=== PATIENT | male | born 1940 | race Caucasian/White ===

== ENCOUNTER 2017-03-26 19:42 | Inpatient (IN) | payer MEDICARE, BC ==
[2017-03-26] VITALS (8 sets, daily range): BP systolic 181–220; BP diastolic 76–103; PULSE 65–81; RESP 18–30; TEMP 98.7–103.1; O2SAT 94–98
[~2017-03-26] VITALS: Ht 185.4 cm; Wt 110.0 kg
[~2017-03-26 19:42] MED LIST: AMLO10 PO; ATOR40TA49 PO; CARD8TAB PO; CIPR500T4 PO; FINA1TAB2 PO; FOLI1 PO; FURO20 PO; GABA300C3 PO; HYDR100T2 PO; MAGN400C2 PO; METO100T PO; METR-1 PO; PERC5TAB12 PO; PRED5TAB PO; PRIM50TA PO; SYNT75TA PO; TAB-TAB PO; TACR1CAP PO; VITA20004 PO; VITATAB25 PO; [UNRECOGNIZED DRUG - CODE] PO
[2017-03-26] MEDS ORDERED: SODIUM CHLOR 0.9% 1000 ML INJ 1,000 ML IV ONE (20:03)
--- NOTE | 2017-03-26 20:08 | PD ---
HPI Chief Complaint: General Weakness Time Seen by Provider: 19:56 Travel History International Travel<30 days: No Contact w/Intl Traveler<30days: No Traveled to known affect area: No History of Present Illness HPI 76-year-old male with history of insulin dependent diabetes, hypertension, renal transplant in 2012, brought in by ambulance from home for evaluation of generalized weakness. Patient reports symptoms started last evening. He states his blood sugar was very low yesterday. Upon arrival to the emergency department he is notably warm and has a fever of 103F. He is denying chest pain or dyspnea. No cough. No abdominal pain. No nausea or vomiting. He did have a skin cancer removed from his left upper extremity that he states became infected and he is currently on an oral antibiotic, but he does not know the name of the medication. States that he is making urine. His baseline creatinine he reports is around 1.6-1.7. PFSH Past Medical History Hx Anticoagulant Therapy: Yes (81 MG ASA) Arthritis: Yes (lower back) Anxiety: No Depression: No Cancer: Yes (SKIN) Cardiovascular Problems: Yes (STENT X 1) Chemotherapy: No Diabetes: Yes Patient Takes Glucophage: No Diminished Hearing: No Endocrine: No Gastrointestinal Disorders: Yes (DUODENAL ULCER) Genitourinary: Yes (ENLARGED PROSTATE) Hepatitis: No Hiatal Hernia: No Hypertension: Yes Immune Disorder: No Implanted Vascular Access Dvce: No Kidney Stones: Yes (lithotripsy) Medical other: No Musculoskeletal: No Neurologic: No Psychiatric: No Reproductive: No Respiratory: No Immunizations Current: Yes Radiation Therapy: No Renal Failure: Yes Thyroid Disease: Yes Tetanus Vaccination: Unknown Influenza Vaccination: Yes Past Surgical History Abdominal Surgery: No AICD: No Arteriovenous Shunt: Yes (left arm avf) Body Medical Devices: PLATE IN NECK Cardiac Surgery: Yes (STENT) Ear Surgery: No Endocrine Surgery: No Eye Surgery: No Genitourinary Surgery: Yes (RIGHT KIDNEY 12-17-12,) Gynecologic Surgery: No Joint Replacement: No Neurologic Surgery: No Oral Surgery: No Pacemaker: No Thoracic Surgery: No Other Surgery: Yes (CATARACTS) Social History Alcohol Use: No Tobacco Use: No Substance Use: No Allergies-Medications (Allergen,Severity, Reaction): Coded Allergies: Amoxicillin (Unverified Allergy, Severe, HIVES, 03/26/17) Penicillin (Verified Allergy, Severe, Anaphylaxis, 03/26/17) PT STATES HE IS ALLERGIC TO AMOXICILLAN AND GETS HIVES FROM IT. Contrast Media (Verified Adverse Reaction, Severe, Urinary Freq (Inc/Dec) , 03/26/17) PT HAS RENAL TRANSPLANT Reported Meds & Prescriptions Reported Meds & Active Scripts Active Percocet 5-325 mg (Oxycodone/Acetaminophen) Oxycodone 5/325 Acetaminophen Tab 1 Tab PO Q6H PRN Flagyl (Metronidazole) 500 Mg Tab 1 Tab PO QID Cipro (Ciprofloxacin HCl) 500 Mg Tab 500 Mg PO BID Reported Finasteride (Finasteride (Alopecia)) 1 Mg Tab 1 Mg PO DAILY Folate 1 Mg Tab (Folic Acid) 1 Mg Tab 1 Mg PO MOWEFR Gabapentin 300 Mg Cap 300 Mg PO Q6HR Lipitor 40 Mg Tab (Atorvastatin Calcium) 40 Mg Tab 40 Mg PO DAILY Norvasc (Amlodipine Besylate) 10 Mg Tab 10 Mg PO DAILY Primidone 50 Mg Tab 50 Mg PO BID Synthroid 75 mcg (Levothyroxine Sodium) 75 Mcg Tab 75 Mcg PO DAILY Tacrolimus 1 mg (Tacrolimus) 1 Mg Cap 4 Mg PO BID Tums [place]hers (Calcium Carbonate (Antacid)) 500 Mg Chw 500 Mg PO DAILY Vitamin B-12 Tr (Cyanocobalamin) 2,000 Tr Tab 1,000 Tab PO MOWEFR Vitamin D-1000 (Cholecalciferol) 1,000 Unit Tab 2,000 Unit PO DAILY Lasix 20 Mg Tab (Furosemide) 20 Mg Tab 20 Mg PO DAILY Cardura XL 8 mg (Doxazosin Mesylate (Bph)) 8 Mg Tab 8 Mg PO HS Metoprolol Tartrate 100 mg (Metoprolol Tartrate) 100 Mg Tab 100 Mg PO BID Magnesium (Magnesium Oxide (Mg Supplement) 400 Mg Cap 800 Mg PO BID Prednisone 5 Mg Tab 5 Mg PO DAILY Hydralazine HCl 100 Mg Tab 100 Mg PO TID Multivitamin (Multivitamins) 1 Tab Tab 1 Tab PO DAILY Review of Systems Except as stated in HPI: all other systems reviewed are Neg Physical Exam Narrative GENERAL: Well-developed, well-nourished, awake, alert, diaphoretic, rigors SKIN: Pale, diaphoretic, warm to touch. Left lateral arm with vertical surgical incision with surrounding erythema and warmth and mild purulent drainage, no fluctuance or induration. HEAD: Atraumatic. Normocephalic. EYES: Pupils equal and round. No scleral icterus. No injection or drainage. ENT: Mucous membranes pink and moist. NECK: Trachea midline. No JVD. No nuchal rigidity. CARDIOVASCULAR: No murmur appreciated. Bilateral distal radial pulses are brisk and equal. RESPIRATORY: No accessory muscle use. Clear to auscultation. Breath sounds equal bilaterally. GASTROINTESTINAL: Abdomen soft, non-tender, nondistended. MUSCULOSKELETAL: No obvious deformities. No clubbing. No cyanosis. No edema. NEUROLOGICAL: Awake and alert. No obvious cranial nerve deficits. Motor grossly within normal limits. Normal speech. PSYCHIATRIC: Appropriate mood and affect; insight and judgment normal. Data Data Last Documented VS Vital Signs Date Time Temp Pulse Resp B/P Pulse Ox O2 Delivery O2 Flow Rate FiO2 03/26/17 21:05 100.1 74 21 199/103 98 Nasal Cannula 2 Orders Electrocardiogram (03/26/17 20:03) Complete Blood Count With Diff (03/26/17 20:03) Comprehensive Metabolic Panel (03/26/17 20:03) Prothrombin Time / Inr (Pt) (03/26/17 20:03) Act Partial Throm Time (Ptt) (03/26/17 20:03) Lactic Acid Sepsis Protocol (03/26/17 20:03) Urinalysis - C+S If Indicated (03/26/17 20:03) Influenzae A/B Antigen (03/26/17 20:03) Blood Culture (03/26/17 20:03) Wound Culture And Gram Stain (03/26/17 20:03) Chest, Single Ap (03/26/17 20:03) Blood Glucose (03/26/17 20:03) Ecg Monitoring (03/26/17 20:03) Iv Access Insert/Monitor (03/26/17 20:03) Oximetry (03/26/17 20:03) Oxygen Administration (03/26/17 20:03) Acetaminophen Supp (Tylenol Supp) (03/26/17 20:15) Sodium Chlor 0.9% 1000 Ml Inj (Ns 1000 M (03/26/17 20:03) Clindamycin Inj (Cleocin Inj) (03/26/17 20:15) Ceftriaxone Inj (Rocephin Inj) (03/26/17 21:30) Admit To Inpatient (03/26/17 ) Vital Signs (Adult) Q4H (03/26/17 21:30) Activity Oob With Assistance (03/26/17 21:30) Delicatessen Department Manager / Telemetry .CONTINUOUS (03/26/17 21:30) Intake + Output DAMARIS.QSHIFT (03/26/17 21:30) Diet Heart Healthy (03/27/17 Breakfast) Diet Renal (03/27/17 Breakfast) Sodium Chlor 0.9% 1000 Ml Inj (Ns 1000 M (03/26/17 21:30) Sodium Chloride 0.9% Flush (Ns Flush) (03/26/17 21:30) Sodium Chloride 0.9% Flush (Ns Flush) (03/27/17 09:00) Ondansetron Inj (Zofran Inj) (03/26/17 21:30) Basic Metabolic Panel (Bmp) (03/27/17 06:00) Complete Blood Count With Diff (03/27/17 06:00) Pt Request For Service (03/26/17 21:30) Naloxone Inj (Narcan Inj) (03/26/17 21:30) Inpatient Certification (03/26/17 ) Urinary Catheter Insert/Apply (03/26/17 21:33) Labs Laboratory Tests Test 03/26/17 20:10 White Blood Count 15.6 TH/MM3 Red Blood Count 4.34 MIL/MM3 Hemoglobin 13.3 GM/DL Hematocrit 39.3 % Mean Corpuscular Volume 90.5 FL Mean Corpuscular Hemoglobin 30.5 PG Mean Corpuscular Hemoglobin 33.7 % Concent Red Cell Distribution Width 13.7 % Platelet Count 154 TH/MM3 Mean Platelet Volume 9.1 FL Neutrophils (%) (Auto) 85.5 % Lymphocytes (%) (Auto) 6.3 % Monocytes (%) (Auto) 7.7 % Eosinophils (%) (Auto) 0.0 % Basophils (%) (Auto) 0.5 % Neutrophils # (Auto) 13.4 TH/MM3 Lymphocytes # (Auto) 1.0 TH/MM3 Monocytes # (Auto) 1.2 TH/MM3 Eosinophils # (Auto) 0.0 TH/MM3 Basophils # (Auto) 0.1 TH/MM3 CBC Comment DIFF FINAL Differential Comment Prothrombin Time 12.1 SEC Prothromb Time International 1.1 RATIO Ratio Activated Partial 27.3 SEC Thromboplast Time Sodium Level 135 MEQ/L Potassium Level 4.9 MEQ/L Chloride Level 100 MEQ/L Carbon Dioxide Level 27.7 MEQ/L Anion Gap 7 MEQ/L Blood Urea Nitrogen 35 MG/DL Creatinine 2.55 MG/DL Estimat Glomerular Filtration 25 ML/MIN Rate Random Glucose 289 MG/DL Lactic Acid Level 2.1 mmol/L Calcium Level 9.1 MG/DL Total Bilirubin 0.6 MG/DL Aspartate Amino Transf 20 U/L (AST/SGOT) Alanine Aminotransferase 31 U/L (ALT/SGPT) Alkaline Phosphatase 64 U/L Total Protein 7.4 GM/DL Albumin 3.8 GM/DL [facility] Medical Decision Making Medical Screen Exam Complete: Yes Emergency Medical Condition: Yes Medical Record Reviewed: Yes Differential Diagnosis Sepsis, cellulitis, bacteremia, influenza, pneumonia, UTI Narrative Course Initial vital signs show heart rate 76, blood pressure 220/85, pulse ox 94% on room air, oral temp of 103.1F. CBC is remarkable for WBC 15.6 with 85.5% neutrophils. CMP is remarkable for BUN 35, creatinine 2.55, GFR 25. Patient reports his baseline creatinine is around 1.6 1.7. Random glucose is 289. Lactic acid is 2.1. Chest x-ray: No acute disease. Patient was given 2 L of normal saline IV. He was also given a dose of clinic my son, for cellulitis of his left upper extremity as well as a dose of Rocephin for potential UTI. Patient was unable to provide a urine sample, therefore for catheter was placed to measure accurate output as well as to obtain a sample. Patient and the patient's family were made aware of all findings and plan for admission. Diagnosis Primary Impression: Sepsis Qualified Code: A41.9 - Sepsis, due to unspecified organism Additional Impressions: Cellulitis Qualified Code: L03.114 - Cellulitis of left upper extremity Acute on chronic renal insufficiency Admitting Information Admitting Physician Requests: Admit Bryant Freitas MD March 26, 2017 20:08
[2017-03-26] MEDS ORDERED: ACETAMINOPHEN 650 MG SUPP RECTAL ONE (20:15)
[2017-03-26] MEDS ORDERED: CLINDAMYCIN INJ 600 MG in SODIUM CHLORIDE 0.9% INJ 100 ML IV ONE (20:15)
[2017-03-26 20:30] LABS: AUTOMATED NEUTROPHIL # 13.4 TH/MM3 (1.8-7.7); BASOPHIL # 0.1 TH/MM3 (0-0.2); BASOPHIL % 0.5 % (0.0-2.0); HEMATOCRIT 39.3 % (39.0-51.0); HEMO FLAGS DIFF FINAL; LYMPH % 6.3 % (9.0-44.0); MEAN CELL VOLUME 90.5 FL (80.0-100.0); MEAN CORPUSCULAR HEMOGLOBIN 30.5 PG (27.0-34.0); MEAN CORPUSCULAR HGB CONC 33.7 % (32.0-36.0); MONO % 7.7 % (0.0-8.0); NEUT % 85.5 % (16.0-70.0); PLATELET COUNT 154 TH/MM3 (150-450); RED BLOOD COUNT 4.34 MIL/MM3 (4.50-5.90); RED CELL DISTRIBUTION WIDTH 13.7 % (11.6-17.2); WHITE BLOOD COUNT 15.6 TH/MM3 (4.0-11.0)
--- NOTE | 2017-03-26 20:37 | RADRPT ---
EXAM DATE/TIME: 03/26/2017 20:22 [place] COMPARISON: No previous studies available for comparison. INDICATIONS : Fever, weakness. MEDICAL HISTORY : Myocardial infarction. Hypertension. SURGICAL HISTORY : Umbilical hernia repair. Cardiac stents. ENCOUNTER: Initial ACUITY: 3 days PAIN SCORE: 0/10 LOCATION: chest FINDINGS: A single view of the chest demonstrates the lungs to be symmetrically aerated without evidence of mas s, infiltrate or effusion. The cardiomediastinal contours are unremarkable. Osseous structures are intact. The patient's head is flexed obscuring the right lung apex. There are degenerative changes in the thoracic spine. CONCLUSION: No acute disease. Raffi Boo MD on March 26, 2017 at 20:30 Board Certified Radiologist. This report was verified electronically.
[2017-03-26 20:46] LABS: APTT (PATIENT) 27.3 SEC (24.3-30.1); INTERNATIONAL NORMALIZED RATIO 1.1 RATIO; PROTHROMBIN TIME - PATIENT 12.1 SEC (9.8-11.6)
[2017-03-26 21:04] LABS: ANION GAP 7 MEQ/L (5-15); BICARBONATE 27.7 MEQ/L (21.0-32.0); BLOOD UREA NITROGEN 35 MG/DL (7-18); CHLORIDE 100 MEQ/L (98-107); GLOMERULAR FILTRATION RATE 25 ML/MIN (>89); POTASSIUM 4.9 MEQ/L (3.5-5.1); SODIUM (NA) 135 MEQ/L (136-145)
[2017-03-26 21:07] LABS: ALKALINE PHOSPHATASE 64 U/L (45-117); ALT (GPT) 31 U/L (12-78); AST (GOT) 20 U/L (15-37); TOTAL BILIRUBIN ADULT 0.6 MG/DL (0.2-1.0)
[2017-03-26] MEDS ORDERED: NALOXONE HCL 0.4 MG/ML AMP IV PRN (21:30)
[2017-03-26] MEDS ORDERED: SODIUM CHLORIDE 0.9% FLUSH 10 ML FLUSH IV FLUSH PRN (21:30)
[2017-03-26] MEDS ORDERED: cefTRIAXone INJ 1,000 MG in SODIUM CHLORIDE 0.9% INJ 100 ML IV ONE (21:30)
[2017-03-26 22:10] LABS: BACTERIA, URINE RARE /hpf; BLOOD, URINE NEG (NEG); GLUCOSE,URINE 300 mg/dL (NEG); HYALINE CAST, URINE 2 /lpf (RARE); KETONE, URINE NEG (NEG); NITRITE,URINE NEG (NEG); SQUAMOUS EPITHELIAL CELL URINE <1 /hpf (0-5); URINE COLOR YELLOW (YELLW/STRAW)
[2017-03-26 22:11] LABS: COMMENT (UR) CATH-CULTURE IND; CULTURE IF INDICATED CATH CULTURE IND
[2017-03-26 22:26] LABS: LACTIC ACID GHOST NOT REPORTABLE
[2017-03-26] MEDS: SODIUM CHLOR 0.9% 1000 ML INJ 1,000 ML IV SCH (22:43)
[2017-03-26] MEDS ORDERED: hydrALAZINE HCL 20 MG/ML VIAL IV PUSH PRN (23:30)
[2017-03-26] MEDS ORDERED: PRIM50TA5 PO (23:34)
[2017-03-26] MEDS ORDERED: METO100T PO (23:34)
[2017-03-26] MEDS ORDERED: LEVO.075 PO (23:34)
[2017-03-26] MEDS ORDERED: MAGN400T2 PO (23:34)
[2017-03-26] MEDS ORDERED: PRED5TAB PO (23:34)
[2017-03-26] MEDS ORDERED: MULTTAB67 PO (23:34)
[2017-03-26] MEDS ORDERED: TACR1CAP PO (23:34)
[2017-03-26] MEDS ORDERED: CARD8TAB2 PO (23:40)
[2017-03-26] MEDS ORDERED: FINA5TAB2 PO (23:40)
[2017-03-26] MEDS ORDERED: FURO20TA PO (23:40)
[2017-03-26] MEDS ORDERED: FOLI1TAB4 PO (23:40)
[2017-03-26] MEDS ORDERED: CALC500C16 CHEW (23:40)
[2017-03-26] MEDS ORDERED: HYDR-3801 PO (23:40)
[2017-03-26] MEDS ORDERED: GABA300C5 PO (23:40)
[2017-03-26] MEDS ORDERED: LIPI40TA PO (23:40)
[2017-03-26] MEDS ORDERED: CHOL1CAP13 PO (23:40)
[2017-03-26] MEDS ORDERED: AMLO10 PO (23:40)
[2017-03-26] MEDS ORDERED: VITA10002 PO (23:40)
[2017-03-27] VITALS (7 sets, daily range): BP systolic 134–190; BP diastolic 68–83; PULSE 67–80; RESP 15–20; TEMP 98.5–99.5; O2SAT 92–97
[2017-03-27] MEDS ORDERED: GLUCAGON 1 MG/ML VIAL OTHER PRN (01:30)
[2017-03-27] MEDS ORDERED: DEXTROSE 50% IN WATER 50 ML VIAL(D50) IV PUSH PRN (01:30)
[2017-03-27] MEDS ORDERED: ACETAMINOPHEN 325 MG TAB PO ONE (02:00)
--- NOTE | 2017-03-27 03:13 | HHI.HP ---
HPI Service [facility] Primary Care Physician Vera Saenz MD Admission Diagnosis sepsis, acute on chronic renal sufficiency, cellulitis Diagnoses: Chief Complaint: fever and chills Travel History International Travel<30 Days: No Contact w/Intl Traveler <30 Da: No Traveled to Known Affected Are: No History of Present Illness Mr. Gaming is a 76 y/o male with a history of end-stage renal disease status post renal transplant in 2012, diabetes mellitus, hypertension, gastroesophageal reflux disease, coronary artery disease, and hyperlipidemia who presented to the emergency room on 03/26/2017 for evaluation of generalized weakness. He was noted to have a temperature of 103 in the ER. The patient is seen in his hospital room. He reports fever and chills for 2 days duration with max temp over 103. He denies any recent cough, shortness of breath, chest pain, diarrhea, nausea, vomiting, or dysuria. He reports some vague abdominal pain that occurs only when he has chills. Sutures removed for skin cancer from left arm procedure done a couple of weeks ago - suture site examined with minimal redness and no exudate and no swelling. Two weeks ago, he was on antibiotics post-procedure and antibiotics were restarted a few days ago after sutures were removed. Review of Systems Except as stated in HPI: all other systems reviewed are Neg Past Family Social History Past Medical History End-stage renal disease status post renal transplant in 2012 Diabetes mellitus Hypertension Basal cell skin cancers Gastroesophageal reflux disease Coronary artery disease status post cardiac stent 1 Hyperlipidemia Bilateral ankle fractures in November 2016 - placed in immobilizers Melanoma 2005 . Past Surgical History Cardiac catheterization with circumflex stenting 02/25/2011 Dr. Hightower Right Kidney Transplant in 2012 Left AV fistula placement Neck surgery with plate placement Cataract surgery Melanoma removed 2005 Reported Medications Reported Meds & Active Scripts Active Reported Norvasc (Amlodipine Besylate) 10 Mg Tab 10 Mg PO DAILY Lipitor (Atorvastatin Calcium) 40 Mg Tab 40 Mg PO HS Calcium Carbonate (Antacid) 500 Mg Chew 500 Mg CHEW PRN Vitamin D3 Maximum Strength (Cholecalciferol) 5,000 Unit Cap 2,000 Units PO DAILY Vitamin B-12 (Cyanocobalamin) 1,000 Mcg Tab 1,000 Mcg PO DAILY Cardura (Doxazosin Mesylate) 8 Mg Tab 8 Mg PO HS Finasteride 5 Mg Tab 1 Mg PO DAILY Do not crush. Folate (Folic Acid) 1 Mg Tab 1 Mg PO DAILY Furosemide 20 Mg Tab 20 Mg PO DAILY Gabapentin 300 Mg Cap 300 Mg PO TID Hydralazine (Hydralazine HCl) 100 Mg Tab 100 Mg PO TID Take with meals Magnesium Oxide 400 Mg Tab 800 Mg PO BID Metoprolol Tartrate 100 Mg Tab 100 Mg PO BID Multiple Vitamin 1 Tab 1 Tab PO DAILY Prednisone 5 Mg Tab 5 Mg PO DAILY Primidone 50 Mg Tab 50 Mg PO BID Synthroid (Levothyroxine Sodium) 75 Mcg Tab 75 Mcg PO DAILY Tacrolimus 1 Mg Cap 4 Mg PO Q12H Allergies: Coded Allergies: Amoxicillin (Unverified Allergy, Severe, HIVES, 03/26/17) Penicillin (Verified Allergy, Severe, Anaphylaxis, 03/26/17) PT STATES HE IS ALLERGIC TO AMOXICILLAN AND GETS HIVES FROM IT. Contrast Media (Verified Adverse Reaction, Severe, Urinary Freq (Inc/Dec) , 03/26/17) PT HAS RENAL TRANSPLANT Active Ordered Medications Current Medications Acetaminophen 650 mg 650 mg ONCE ONCE RECTAL Last administered on 03/26/17 20: 37; Start 03/26/17 at 20:15; Stop 03/26/17 at 20:16; Status DC Sodium Chloride 1,000 ml @ 1,000 mls/hr Q1H ONCE IV Last administered on 20:37; Start 03/26/17 at 20:03; Stop 03/26/17 at 21:02; Status DC Clindamycin Phosphate 600 mg/ Sodium Chloride 104 ml @ 208 mls/hr ONCE ONCE IV Last administered on 03/26/17 20:51; Start 03/26/17 at 20:15; Stop 03/26/17 at 20:44; Status DC Ceftriaxone Sodium 1000 mg/ Sodium Chloride 100 ml @ 200 mls/hr ONCE ONCE IV Last administered on 03/26/17 22:44; Start 03/26/17 at 21:30; Stop 03/26/17 at 21: 59; Status DC Sodium Chloride (NS 1000 ml Inj) 1,000 ml @ 100 mls/hr Q10H IV Last administered on 03/26/17 22:43; Start 03/26/17 at 21:30 Sodium Chloride (NS Flush) 2 ml UNSCH PRN IV FLUSH FLUSH AFTER USING IV ACCESS ; Start 03/26/17 at 21:30 Sodium Chloride (NS Flush) 2 ml BID IV FLUSH ; Start 03/27/17 at 09:00 Ondansetron HCl (Zofran Inj) 4 mg Q6H PRN IVP NAUSEA OR VOMITING; Start at 21:30 Naloxone HCl 0.4 mg 0.4 mg UNSCH PRN IV SEE LABEL COMMENTS; Start 03/26/17 at 21 :30 Clindamycin Phosphate/Sodium Chloride (Cleocin Inj/NS Inj) 104 ml @ 208 mls/hr Q6H IV ; Start 03/27/17 at 03:00 Lactobacillus Acidophilus (Lactinex) 1 tab TID PO ; Start 03/27/17 at 09:00 Hydralazine HCl (Apresoline Inj) 10 mg Q30M PRN IV PUSH bp>180/90 Last administered on 03/26/17t 23:44; Start 03/26/17 at 23:30 Dextrose (D50w (Vial) Inj) 25 ml UNSCH PRN IV PUSH HYPOGLYCEMIA-SEE COMMENTS; Start 03/27/17 at 01:30 Glucagon (Glucagon Inj) 1 mg UNSCH PRN OTHER HYPOGLYCEMIA-SEE COMMENTS; Start 03/27/17 at 01:30 Insulin Aspart (NovoLOG SUPPLEMENTAL SCALE) 1 ACHS SLIDING SCALE SQ ; Start 03/27/17 at 07:00 Acetaminophen (Tylenol) 650 mg ONCE ONCE PO ; Start 03/27/17 at 02:00; Stop 03/27 at 02:01; Status DC Family History Father at age 76 from lung cancer Mother at age 76 from ovarian cancer Sister with diabetes Son with end-stage renal disease and diabetes Another son with diabetes Social History Tobacco: Smoked half pack per day and quit in 1965 Alcohol: denies Illicit Drugs: denies Physical Exam Vital Signs Vital Signs Date Time Temp Pulse Resp B/P Pulse Ox O2 Delivery O2 Flow Rate FiO2 03/27/17 01:00 71 03/27/17 00:30 99.0 71 18 134/68 97 03/27/17 00:30 71 03/26/17 23:51 181/76 03/26/17 23:47 65 18 186/79 97 Nasal Cannula 2 03/26/17 22:45 67 18 198/79 97 Nasal Cannula 2 03/26/17 22:08 98.7 68 30 209/84 95 03/26/17 21:05 100.1 74 21 199/103 98 Nasal Cannula 2 03/26/17 20:35 98 Nasal Cannula 2 03/26/17 20:35 98 Nasal Cannula 2 03/26/17 20:35 81 26 211/102 95 Nasal Cannula 2 03/26/17 19:57 79 20 220/85 97 Nasal Cannula 2 03/26/17 19:52 103.1 76 20 94 Physical Exam GENERAL: This is a morbidly obese older male patient, in no apparent distress. SKIN: Left arm skin cancer removal incision site with mild erythema and no exudate and no swelling. Cool and dry. HEAD: Atraumatic. Normocephalic. EYES: No scleral icterus. No injection or drainage. ENT: Nose without bleeding, purulent drainage. NECK: Trachea midline. No JVD or lymphadenopathy. CARDIOVASCULAR: Regular rate and rhythm without murmurs, gallops, or rubs. RESPIRATORY: Clear to auscultation. Breath sounds equal bilaterally. No wheezes , rales, or rhonchi. GASTROINTESTINAL: Abdomen soft, non-tender, nondistended. No guarding. MUSCULOSKELETAL: Extremities without clubbing, cyanosis, or edema. No calf tenderness. NEUROLOGICAL: Awake and alert. Motor and sensory grossly within normal limits. Normal speech. . Laboratory Laboratory Tests Test 03/26/17 03/26/17 03/26/17 20:10 21:35 23:00 White Blood Count 15.6 Red Blood Count 4.34 Hemoglobin 13.3 Hematocrit 39.3 Mean Corpuscular Volume 90.5 Mean Corpuscular Hemoglobin 30.5 Mean Corpuscular Hemoglobin 33.7 Concent Red Cell Distribution Width 13.7 Platelet Count 154 Mean Platelet Volume 9.1 Neutrophils (%) (Auto) 85.5 Lymphocytes (%) (Auto) 6.3 Monocytes (%) (Auto) 7.7 Eosinophils (%) (Auto) 0.0 Basophils (%) (Auto) 0.5 Neutrophils # (Auto) 13.4 Lymphocytes # (Auto) 1.0 Monocytes # (Auto) 1.2 Eosinophils # (Auto) 0.0 Basophils # (Auto) 0.1 CBC Comment DIFF FINAL Differential Comment Prothrombin Time 12.1 Prothromb Time International 1.1 Ratio Activated Partial 27.3 Thromboplast Time Sodium Level 135 Potassium Level 4.9 Chloride Level 100 Carbon Dioxide Level 27.7 Anion Gap 7 Blood Urea Nitrogen 35 Creatinine 2.55 Estimat Glomerular Filtration 25 Rate Random Glucose 289 Lactic Acid Level 2.1 1.0 Calcium Level 9.1 Total Bilirubin 0.6 Aspartate Amino Transf 20 (AST/SGOT) Alanine Aminotransferase 31 (ALT/SGPT) Alkaline Phosphatase 64 Total Protein 7.4 Albumin 3.8 Urine Color YELLOW Urine Turbidity CLEAR Urine pH 6.0 Urine Specific [place] 1.017 Urine Protein 30 Urine Glucose (UA) 300 Urine Ketones NEG Urine Occult Blood NEG Urine Nitrite NEG Urine Bilirubin NEG Urine Urobilinogen LESS THAN 2.0 Urine Leukocyte Esterase NEG Urine RBC 1 Urine WBC 1 Urine Squamous Epithelial <1 Cells Urine Bacteria RARE Urine Hyaline Casts 2 Microscopic Urinalysis Comment CATH-CULTURE IND Date/Time Procedure Status Source Growth 03/26/17 21:35 Urine Culture Received Urine Catheterized Urine Pending 03/26/17 20:30 Influenza Types A,B Antigen ([place]) - Final Complete Nasal Washing NEGATIVE FOR FLU A AND B ANTIGEN.... 03/26/17 20:30 Gram Stain Received Wound Arm Pending 03/26/17 20:30 Wound Culture Received Wound Arm Pending 03/26/17 20:10 Aerobic Blood Culture Received Blood Peripheral Pending 03/26/17 20:10 Anaerobic Blood Culture Received Blood Peripheral Pending Result Diagram: 03/26/17200903/26/172009 Imaging Last Impressions Chest X-Ray 03/26/172002 Signed Impressions: Service Date/Time: Sunday, March 26, 2017 20:22 - CONCLUSION: No acute disease. Raffi Boo MD . Assessment and Plan Assessment and Plan Mr. Gaming is a 76 y/o male with a history of end-stage renal disease status post renal transplant in 2012 is admitted with sepsis secondary to left arm cellulitis s/p basal cell CA removal. Sepsis secondary to cellulitis of left upper extremity- Leukocytosis with neutrophilia, fever, lactic acidosis - WBC 15.6 with neutrophilia - Oral temperature 103.1 on admission - Lactic acid 2.1 repeat 1.0 - Clindamycin 600 mg IV every 6 hours - Acidophilus 1 tab 3 times a day to maintain normal gastrointestinal behtany - flu A and B negative - CXR negative - await results of blood cultures, wound cultures, and urine cultures Acute on chronic renal failure in a renal transplant patient - BUN 35, creatinine 2.55, estimated GFR 25 - Baseline: creatinine is 1.6 1.7, eGFR mid-30s - Monitor intake and output every shift - IV fluid hydration with normal saline at 100 cc per hour - Renal diet - Avoid nephrotoxins - consult circuit breaker supervisor - Dr. Yoo Hyperglycemia secondary to diabetes mellitus and infection - Accu-Cheks before meals and at bedtime with low-dose NovoLog sliding scale coverage - Hypoglycemia treatment protocol ordered - Monitor trends and blood glucose readings and adjust treatment as needed Hypertensive urgency - Hydralazine 10 mg IV push every 30 minutes as needed for blood pressure greater than 180/90 - Restart home antihypertensive medications - Monitor trends in blood pressure readings and adjust treatment as needed DVT prophylaxis - Heparin 5000 units subq q8h Written by Yasmeen Casarez, acting as scribe for Dr. Le on 03/27/17 at 03:07. .This note was transcribed by scribe [Yasmeen Casarez]. I, Dr. Kaylie Le personally performed the history, physical exam, and medical decision making; and confirmed the accuracy of the information in the transcribed note. Authenticated by Dr. Kaylie Le on 03/27/17 at 03:07. Discussed Condition With ER physician and patient . Physician Certification 2 Midnight Certification Type: Admission for Inpatient Services Order for Inpatient Services The services are ordered in accordance with Medicare regulations or non- Medicare payer requirements, as applicable. In the case of services not specified as inpatient-only, they are appropriately provided as inpatient services in accordance with the 2-midnight benchmark. Estimated LOS (days): 3 days is the estimated time the patient will need to remain in the hospital, assuming treatment plan goals are met and no additional complications. Post-Hospital Plan: Not yet determined Yasmeen Casarez March 27, 2017 03:13 Kaylie Le MD March 27, 2017 08:35
[2017-03-27] MEDS: CLINDAMYCIN INJ 600 MG in SODIUM CHLORIDE 0.9% INJ 100 ML IV SCH ×4 (03:24→21:34)
[2017-03-27 06:17] LABS: AUTOMATED NEUTROPHIL # 13.8 TH/MM3 (1.8-7.7); BASOPHIL # 0.1 TH/MM3 (0-0.2); BASOPHIL % 0.4 % (0.0-2.0); HEMATOCRIT 35.7 % (39.0-51.0); HEMO FLAGS DIFF FINAL; LYMPH % 5.2 % (9.0-44.0); LYMPHOCYTE # 0.8 TH/MM3 (1.0-4.8); MEAN CELL VOLUME 90.3 FL (80.0-100.0); MEAN CORPUSCULAR HEMOGLOBIN 30.6 PG (27.0-34.0); MEAN CORPUSCULAR HGB CONC 33.9 % (32.0-36.0); MONO % 6.1 % (0.0-8.0); NEUT % 88.3 % (16.0-70.0); PLATELET COUNT 136 TH/MM3 (150-450); RED BLOOD COUNT 3.95 MIL/MM3 (4.50-5.90); RED CELL DISTRIBUTION WIDTH 13.6 % (11.6-17.2); WHITE BLOOD COUNT 15.6 TH/MM3 (4.0-11.0)
[2017-03-27 06:45] LABS: BICARBONATE 23.5 MEQ/L (21.0-32.0); POTASSIUM 4.7 MEQ/L (3.5-5.1)
[2017-03-27] MEDS: SODIUM CHLOR 0.9% 1000 ML INJ 1,000 ML IV SCH ×2 (07:30→15:20)
[2017-03-27] MEDS: HEPARIN SODIUM - SQ 10,000 UNITS/ML VIAL SQ SCH ×3 (07:57→21:35)
[2017-03-27] MEDS: LEVOTHYROXINE SODIUM 75 MCG TAB PO SCH (07:57)
[2017-03-27] MEDS: INSULIN ASPART SUPPLEMENTAL SCALE SQ SCH ×4 (07:58→21:35)
[2017-03-27] MEDS ORDERED: FINASTERIDE 5 MG TAB PO SCH (09:00)
[2017-03-27] MEDS: SODIUM CHLORIDE 0.9% FLUSH 10 ML FLUSH IV FLUSH SCH ×2 (09:00→21:00)
[2017-03-27] MEDS: CHOLECALCIFEROL (VIT D3) 1000 UNIT TAB PO SCH (09:00)
[2017-03-27] MEDS: LACTOBACILLUS ACIDOPHILUS TAB PO SCH ×3 (09:32→17:21)
[2017-03-27] MEDS: GABAPENTIN 300 MG CAP PO SCH ×3 (09:32→17:21)
[2017-03-27] MEDS: hydrALAZINE HCL 100 MG TAB PO SCH ×3 (09:32→17:21)
[2017-03-27] MEDS: CYANOCOBALAMIN 1,000 MCG TAB PO SCH (09:32)
[2017-03-27] MEDS: METOPROLOL TARTRATE 100 MG TAB PO SCH ×2 (09:35→21:33)
[2017-03-27] MEDS: predniSONE 5 MG TAB PO SCH (09:35)
[2017-03-27] MEDS: FOLIC ACID 1 MG TAB PO SCH (09:35)
[2017-03-27] MEDS: FUROSEMIDE 20 MG TAB PO SCH (09:35)
[2017-03-27] MEDS: THIAMINE HCL 100 MG TAB PO SCH (09:35)
--- NOTE | 2017-03-27 10:57 | PD.CONS ---
HPI Service Nephrology Consult Requested By Dr. Le Reason for Consult Kidney transplant Primary Care Physician Vera Saenz MD History of Present Illness Patient is 76-year-old status post kidney transplant at [facility] in 2012 complicated by obstructive uropathy requiring stents he finally has improved to his renal function however he has multiple skin cancer is skin cancer was excised from left arm about 12 days ago and he developed fevers and treating the patient is some redness around the incision the sutures were removed recently he came in with feeling tired loss of appetite and fevers. His creatinine fluctuated between 1.6-1.9 just today it was 2.5 and today is 2.1 Past Family Social History Allergies: Coded Allergies: Amoxicillin (Unverified Allergy, Severe, HIVES, 03/26/17) Penicillin (Verified Allergy, Severe, Anaphylaxis, 03/26/17) PT STATES HE IS ALLERGIC TO AMOXICILLAN AND GETS HIVES FROM IT. Contrast Media (Verified Adverse Reaction, Severe, Urinary Freq (Inc/Dec) , 03/26/17) PT HAS RENAL TRANSPLANT Past Medical History End-stage renal disease status post renal transplant in 2012 Diabetes mellitus Hypertension Basal cell skin cancers Gastroesophageal reflux disease Coronary artery disease status post cardiac stent 1 Hyperlipidemia Bilateral ankle fractures in November 2016 - placed in immobilizers Melanoma 2005 . Past Surgical History Status post kidney stent and removal Cardiac catheterization with circumflex stenting 02/25/2011 Dr. Hightower Right Kidney Transplant in 2012 Left AV fistula placement Neck surgery with plate placement Cataract surgery Melanoma removed 2005 Reported Medications Reported Meds & Active Scripts Active Reported Norvasc (Amlodipine Besylate) 10 Mg Tab 10 Mg PO DAILY Lipitor (Atorvastatin Calcium) 40 Mg Tab 40 Mg PO HS Calcium Carbonate (Antacid) 500 Mg Chew 500 Mg CHEW PRN Vitamin D3 Maximum Strength (Cholecalciferol) 5,000 Unit Cap 2,000 Units PO DAILY Vitamin B-12 (Cyanocobalamin) 1,000 Mcg Tab 1,000 Mcg PO DAILY Cardura (Doxazosin Mesylate) 8 Mg Tab 8 Mg PO HS Finasteride 5 Mg Tab 1 Mg PO DAILY Do not crush. Folate (Folic Acid) 1 Mg Tab 1 Mg PO DAILY Furosemide 20 Mg Tab 20 Mg PO DAILY Gabapentin 300 Mg Cap 300 Mg PO TID Hydralazine (Hydralazine HCl) 100 Mg Tab 100 Mg PO TID Take with meals Magnesium Oxide 400 Mg Tab 800 Mg PO BID Metoprolol Tartrate 100 Mg Tab 100 Mg PO BID Multiple Vitamin 1 Tab 1 Tab PO DAILY Prednisone 5 Mg Tab 5 Mg PO DAILY Primidone 50 Mg Tab 50 Mg PO BID Synthroid (Levothyroxine Sodium) 75 Mcg Tab 75 Mcg PO DAILY Tacrolimus 1 Mg Cap 4 Mg PO Q12H Active Ordered Medications Current Medications Medications (Trade) Dose Ordered Sig/Sanjuana Route Start Time Stop Time Status Last Admin (NS 1000 ml Inj) 1,000 ml @ 100 mls/hr Q10H IV 03/26/17 21:30 03/26/17 22:43 (NS Flush) 2 ml UNSCH PRN IV FLUSH 03/26/17 21:30 (NS Flush) 2 ml BID IV FLUSH 03/27/17 09:00 (Zofran Inj) 4 mg Q6H PRN IVP 03/26/17 21:30 Naloxone HCl 0.4 mg 0.4 mg UNSCH PRN IV 03/26/17 21:30 (Cleocin Inj/NS Inj) 104 ml @ 208 mls/hr Q6H IV 03/27/17 03:00 03/27/17 09:40 (Lactinex) 1 tab TID PO 03/27/17 09:00 03/27/17 09:32 (Apresoline Inj) 10 mg Q30M PRN IV PUSH 03/26/17 23:30 03/26/17 23:44 (D50w (Vial) Inj) 25 ml UNSCH PRN IV PUSH 03/27/17 01:30 (Glucagon Inj) 1 mg UNSCH PRN OTHER 03/27/17 01:30 (Heparin Inj) 5,000 units Q8HR SQ 03/27/17 06:00 03/27/17 07:57 (Norvasc) 10 mg DAILY PO 03/27/17 09:00 03/27/17 09:35 (Lipitor) 40 mg HS PO 03/27/17 21:00 (Vitamin D3) 2,000 units DAILY PO 03/27/17 09:00 03/27/17 09:00 (Vitamin B12) 1,000 mcg DAILY PO 03/27/17 09:00 03/27/17 09:32 (Cardura) 8 mg HS PO 03/27/17 21:00 (Proscar) 1 mg DAILY PO 03/27/17 09:00 UNV (Folate) 1 mg DAILY PO 03/27/17 09:00 03/27/17 09:35 (Lasix) 20 mg DAILY PO 03/27/17 09:00 03/27/17 09:35 (Neurontin) 300 mg TID PO 03/27/17 09:00 03/27/17 09:32 (Apresoline) 100 mg TID PO 03/27/17 09:00 03/27/17 09:32 (Synthroid) 75 mcg DAILY@06 PO 03/27/17 07:00 03/27/17 07:57 (Lopressor) 100 mg BID PO 03/27/17 09:00 03/27/17 09:35 (Deltasone) 5 mg DAILY PO 03/27/17 09:00 03/27/17 09:35 (Mysoline) 50 mg BID PO 03/27/17 09:00 (Prograf) 4 mg Q12H PO 03/27/17 09:00 (Vitamin B1) 1 mg DAILY PO 03/27/17 09:00 03/27/17 09:35 Family History His son . Had kidney disease as well Social History Denies smoking or alcohol use Physical Exam Vital Signs Vital Signs Date Time Temp Pulse Resp B/P Pulse Ox O2 Delivery O2 Flow Rate FiO2 03/27/17 08:44 98.5 80 15 190/83 94 03/27/17 01:00 71 03/27/17 00:30 99.0 71 18 134/68 97 03/27/17 00:30 71 03/26/17 23:51 181/76 03/26/17 23:47 65 18 186/79 97 Nasal Cannula 2 03/26/17 22:45 67 18 198/79 97 Nasal Cannula 2 03/26/17 22:08 98.7 68 30 209/84 95 03/26/17 21:05 100.1 74 21 199/103 98 Nasal Cannula 2 03/26/17 20:35 98 Nasal Cannula 2 03/26/17 20:35 98 Nasal Cannula 2 03/26/17 20:35 81 26 211/102 95 Nasal Cannula 2 03/26/17 19:57 79 20 220/85 97 Nasal Cannula 2 03/26/17 19:52 103.1 76 20 94 Physical Exam GENERAL: Well-nourished, well-developed patient. SKIN: Warm and dry. HEAD: Normocephalic. EYES: No scleral icterus. No injection or drainage. NECK: Supple, trachea midline. No JVD or lymphadenopathy. CARDIOVASCULAR: Regular rate and rhythm without murmurs, gallops, or rubs. RESPIRATORY: Breath sounds equal bilaterally. No accessory muscle use. GASTROINTESTINAL: Abdomen soft, non-tender, nondistended. EXTREMITIES: No cyanosis, or edema. Left thumb there is redness posterior NEUROLOGICAL: Awake, alert, and oriented x 3. Non-focal. Laboratory Laboratory Tests Test 03/26/17 03/26/17 03/26/17 03/27/17 20:10 21:35 23:00 06:00 White Blood Count 15.6 15.6 Red Blood Count 4.34 3.95 Hemoglobin 13.3 12.1 Hematocrit 39.3 35.7 Mean Corpuscular Volume 90.5 90.3 Mean Corpuscular Hemoglobin 30.5 30.6 Mean Corpuscular Hemoglobin 33.7 33.9 Concent Red Cell Distribution Width 13.7 13.6 Platelet Count 154 136 Mean Platelet Volume 9.1 8.7 Neutrophils (%) (Auto) 85.5 88.3 Lymphocytes (%) (Auto) 6.3 5.2 Monocytes (%) (Auto) 7.7 6.1 Eosinophils (%) (Auto) 0.0 0.0 Basophils (%) (Auto) 0.5 0.4 Neutrophils # (Auto) 13.4 13.8 Lymphocytes # (Auto) 1.0 0.8 Monocytes # (Auto) 1.2 0.9 Eosinophils # (Auto) 0.0 0.0 Basophils # (Auto) 0.1 0.1 CBC Comment DIFF FINAL DIFF FINAL Differential Comment Prothrombin Time 12.1 Prothromb Time International 1.1 Ratio Activated Partial 27.3 Thromboplast Time Sodium Level 135 138 Potassium Level 4.9 4.7 Chloride Level 100 106 Carbon Dioxide Level 27.7 23.5 Anion Gap 7 9 Blood Urea Nitrogen 35 31 Creatinine 2.55 2.17 Estimat Glomerular Filtration 25 30 Rate Random Glucose 289 225 Lactic Acid Level 2.1 1.0 Calcium Level 9.1 8.3 Total Bilirubin 0.6 Aspartate Amino Transf 20 (AST/SGOT) Alanine Aminotransferase 31 (ALT/SGPT) Alkaline Phosphatase 64 Total Protein 7.4 Albumin 3.8 Urine Color YELLOW Urine Turbidity CLEAR Urine pH 6.0 Urine Specific [place] 1.017 Urine Protein 30 Urine Glucose (UA) 300 Urine Ketones NEG Urine Occult Blood NEG Urine Nitrite NEG Urine Bilirubin NEG Urine Urobilinogen LESS THAN 2.0 Urine Leukocyte Esterase NEG Urine RBC 1 Urine WBC 1 Urine Squamous Epithelial <1 Cells Urine Bacteria RARE Urine Hyaline Casts 2 Microscopic Urinalysis Comment CATH-CULTURE IND Date/Time Procedure Status Source Growth 03/26/17 21:35 Urine Culture Received Urine Catheterized Urine Pending 03/26/17 20:30 Influenza Types A,B Antigen ([place]) - Final Complete Nasal Washing NEGATIVE FOR FLU A AND B ANTIGEN.... 03/26/17 20:30 Gram Stain - Final Resulted Wound Arm 03/26/17 20:30 Wound Culture Resulted Wound Arm Pending 03/26/17 20:10 Aerobic Blood Culture Received Blood Peripheral Pending 03/26/17 20:10 Anaerobic Blood Culture Received Blood Peripheral Pending Result Diagram: 03/27/17 0600 03/27/17 0600 Imaging Last Impressions Chest X-Ray 03/26/172002 Signed Impressions: Service Date/Time: Sunday, March 26, 2017 20:22 - CONCLUSION: No acute disease. Raffi Boo MD Assessment and Plan Problem List: (1) Kidney transplant status, cadaveric Plan: Patient is on Prograf 4 mg twice a day and prednisone 5 mg daily continue to monitor levels continue with hydration (2) Acute on chronic renal insufficiency Plan: Improve with hydration (3) Sepsis Plan: Likely due to his recent procedure (4) Cellulitis Plan: On clindamycin receive ceftriaxone (5) IDDM (insulin dependent diabetes mellitus) Plan: Blood glucoses elevated (6) Hypertension Plan: Labile follow and adjust medication Problem Qualifiers (1) Sepsis: Qualified Code: A41.9 - Sepsis, due to unspecified organism (2) Cellulitis: Qualified Code: L03.114 - Cellulitis of left upper extremity Surekha Yoo MD March 27, 2017 10:57
[2017-03-27] MEDS: ONDANSETRON HCL 4 MG/2 ML VIAL IVP PRN (17:16)
[2017-03-27] MEDS: ACETAMINOPHEN 325 MG TAB PO PRN ×2 (17:16→23:19)
--- NOTE | 2017-03-27 17:28 | EKG ---
Date Performed: 03/26/2017 Time Performed: 20:27:37 PTAGE: 76 years EKG: Sinus rhythm MARKED LEFT AXIS DEVIATION ABNORMAL ECG No change compared to prior study of 12/16/2012. PREVIOUS TRACING : 12/16/2012 16.14 DOCTOR: Jose Roberto Allen Interpretating Date/Time 03/27/2017 17:27:10
[2017-03-27] MEDS: PRIMIDONE 50 MG TAB PO SCH (21:33)
[2017-03-27] MEDS: TACROLIMUS 1 MG CAP PO SCH (21:33)
[2017-03-27] MEDS: DOXAZOSIN MESYLATE 4 MG TAB PO SCH (21:34)
[2017-03-27] MEDS: ATORVASTATIN 40 MG TAB PO SCH (21:34)
[2017-03-28] VITALS (8 sets, daily range): BP systolic 127–198; BP diastolic 60–90; PULSE 64–79; RESP 18–20; TEMP 98.5–100.2; O2SAT 92–96
[2017-03-28] MEDS: CLINDAMYCIN INJ 600 MG in SODIUM CHLORIDE 0.9% INJ 100 ML IV SCH ×3 (03:57→14:42)
[2017-03-28] MEDS: SODIUM CHLOR 0.9% 1000 ML INJ 1,000 ML IV SCH ×3 (03:58→21:33)
[2017-03-28] MEDS: INSULIN ASPART SUPPLEMENTAL SCALE SQ SCH ×4 (06:08→21:00)
[2017-03-28] MEDS: HEPARIN SODIUM - SQ 10,000 UNITS/ML VIAL SQ SCH ×2 (06:08→13:27)
[2017-03-28] MEDS: LEVOTHYROXINE SODIUM 75 MCG TAB PO SCH (06:09)
[2017-03-28] MEDS: ACETAMINOPHEN 325 MG TAB PO PRN ×2 (06:09→12:52)
[2017-03-28 07:31] LABS: AUTOMATED NEUTROPHIL # 11.6 TH/MM3 (1.8-7.7); BASOPHIL % 0.4 % (0.0-2.0); HEMO FLAGS DIFF FINAL; LYMPH % 5.3 % (9.0-44.0); LYMPHOCYTE # 0.7 TH/MM3 (1.0-4.8); MEAN CELL VOLUME 90.8 FL (80.0-100.0); MEAN CORPUSCULAR HEMOGLOBIN 29.7 PG (27.0-34.0); MEAN CORPUSCULAR HGB CONC 32.7 % (32.0-36.0); MONO % 4.8 % (0.0-8.0); NEUT % 89.5 % (16.0-70.0); PLATELET COUNT 128 TH/MM3 (150-450); RED BLOOD COUNT 3.85 MIL/MM3 (4.50-5.90); RED CELL DISTRIBUTION WIDTH 13.8 % (11.6-17.2)
[2017-03-28 07:39] LABS: BICARBONATE 20.2 MEQ/L (21.0-32.0); POTASSIUM 4.7 MEQ/L (3.5-5.1)
[2017-03-28] MEDS: LACTOBACILLUS ACIDOPHILUS TAB PO SCH ×3 (08:46→18:17)
[2017-03-28] MEDS: CHOLECALCIFEROL (VIT D3) 1000 UNIT TAB PO SCH (08:47)
[2017-03-28] MEDS: GABAPENTIN 300 MG CAP PO SCH ×3 (08:47→18:17)
[2017-03-28] MEDS: METOPROLOL TARTRATE 100 MG TAB PO SCH ×2 (08:47→21:30)
[2017-03-28] MEDS: PRIMIDONE 50 MG TAB PO SCH ×2 (08:47→21:30)
[2017-03-28] MEDS: CYANOCOBALAMIN 1,000 MCG TAB PO SCH (08:47)
[2017-03-28] MEDS: FUROSEMIDE 20 MG TAB PO SCH (08:48)
[2017-03-28] MEDS: TACROLIMUS 1 MG CAP PO SCH ×2 (08:48→21:30)
[2017-03-28] MEDS: SODIUM CHLORIDE 0.9% FLUSH 10 ML FLUSH IV FLUSH SCH ×2 (08:48→21:34)
[2017-03-28] MEDS: THIAMINE HCL 100 MG TAB PO SCH (08:48)
[2017-03-28] MEDS: FOLIC ACID 1 MG TAB PO SCH (08:48)
[2017-03-28] MEDS: predniSONE 5 MG TAB PO SCH (08:48)
[2017-03-28] MEDS: hydrALAZINE HCL 100 MG TAB PO SCH ×3 (08:48→18:17)
[2017-03-28 10:50] LABS: C. DIFF EPI 027 PRESUMPTIVE NEGATIVE (NEGATIVE); C. DIFF TOXIN PCR NEGATIVE (NEGATIVE)
--- NOTE | 2017-03-28 13:26 | HHI.PR ---
Subjective Remarks + generalized abdominal pain with fever and chills pain a day prior to admission since here- severe diarrhea left UE wound- deltoid area- not impressive to be source of fever Objective Vitals Vital Signs Date Time Temp Pulse Resp B/P Pulse Ox O2 Delivery O2 Flow Rate FiO2 03/28/17 12:39 160/90 03/28/17 12:00 99.0 71 20 146/67 92 03/28/17 10:15 64 03/28/17 08:00 98.8 66 20 134/63 92 03/28/17 04:00 99.4 65 18 149/65 95 03/28/17 00:00 100.2 66 19 127/60 93 03/27/17 20:16 67 03/27/17 20:00 99.5 69 18 161/68 92 03/27/17 16:06 98.9 72 20 187/79 93 I/O 03/27/17 03/27/17 03/27/17 03/28/17 03/28/17 03/28/17 07:00 15:00 23:00 07:00 15:00 23:00 Intake Total 1484 ml 120 ml 240 ml Output Total 1000 ml 1300 ml 600 ml Balance 484 ml -1180 ml -360 ml Intake Oral 240 ml 120 ml 240 ml IV Total 1244 ml Output Urine Total 1000 ml 1300 ml 600 ml # Bowel Movements 0 0 6 Result Diagram: 03/28/17 0645 03/28/17 0645 Imaging Last Impressions Chest X-Ray 03/26/172002 Signed Impressions: Service Date/Time: Sunday, March 26, 2017 20:22 - CONCLUSION: No acute disease. Raffi Boo MD Objective Remarks anicteric lungs no rales or wheezes regular rhythm abdomen- soft, + diffusely tender, few bowel sounds extremities- LUE-- deltoid area- dry scab, very mild erythema, no lower extremities edema Urinary Catheter: Yes Assessment to: Continue Vergara insert reason: Measure Accurate Output Date of Insertion: March 27, 2017 A/P Assessment and Plan Mr. Gaming is a 76 y/o male with a history of end-stage renal disease status post renal transplant in 2012 is admitted with sepsis secondary to left arm cellulitis s/p basal cell CA removal. Sepsis - cellulitis of left upper extremity-- dry wound grew MRSA - not impressive clinically - Look for other source- + GI etio- colitis- pain and diarrhea Leukocytosis with neutrophilia, fever, lactic acidosis - - exam of left deltoid area- decrease erythema, dry, no active drainage - t max 100.2 Acute Colitis- with abdominal pain and diarrhea -DC clindamycin. change to Levaquin 500 mg IV q 8 + IV flagyl -get CT of abdomen r/o colitis- belly exam- diffusely tender -stools c diff negative - continue IVF -continue Lactinex - consider GI consult Acute KI on chronic renal failure in a renal transplant patient - BUN 35, creatinine 2.55, estimated GFR 25 - Baseline: creatinine trending down - Monitor intake and output every shift - IV fluid hydration with normal saline will continue with ongoing diarrhea - Renal diet - Avoid nephrotoxins . conitnue on Prednisone - Dr. Yoo ff Hyperglycemia secondary to diabetes mellitus and infection - Accu-Cheks before meals and at bedtime with low-dose NovoLog sliding scale coverage - Hypoglycemia treatment protocol ordered - Monitor trends and blood glucose readings and adjust treatment as needed Hypertensive urgency - Hydralazine 10 mg IV push every 30 minutes as needed for blood pressure greater than 180/90 - Restart home antihypertensive medications - Monitor trends in blood pressure readings and adjust treatment as needed DVT prophylaxis - Heparin 5000 units subq q8h Asad Rubio MD March 28, 2017 13:25 DVT prophylaxis - Heparin 5000 units subq q8h Asad Rubio MD March 28, 2017 13:25
[2017-03-28] MEDS ORDERED: HYDROmorphone HCL PF 1 MG/ML VIAL IV PUSH ONE (15:30)
[2017-03-28] MEDS: ONDANSETRON HCL 4 MG/2 ML VIAL IVP PRN (15:49)
[2017-03-28] MEDS ORDERED: LEVOFLOXACIN 500 MG PREMIX INJ 100 ML IV SCH (16:00)
[2017-03-28] MEDS ORDERED: LANTUS2P SQ (16:06)
--- NOTE | 2017-03-28 16:13 | HHI.NPPN ---
Subjective History of Present Illness 76 year old with kidney transplant DM,skin cancer s/p excision cellulitis left arm MRSA Review of Systems General Constitutional: Fatigue Objective Data Data 03/27/17 03/28/17 19:00 07:00 Intake Total 360 ml Output Total 1900 ml Balance -1540 ml Intake Oral 360 ml Output Urine Total 1900 ml # Bowel Movements 6 Vital Signs Date Time Temp Pulse Resp B/P Pulse Ox O2 Delivery O2 Flow Rate FiO2 03/28/17 12:39 160/90 03/28/17 12:00 99.0 71 20 146/67 92 03/28/17 10:15 64 03/28/17 08:00 98.8 66 20 134/63 92 03/28/17 04:00 99.4 65 18 149/65 95 03/28/17 00:00 100.2 66 19 127/60 93 03/27/17 20:16 67 03/27/17 20:00 99.5 69 18 161/68 92 -: 03/28/17 0645 03/28/17 0645 Physical Exam General Appearance: Well Developed, Well Nourished Neck Neck Exam: Neck Supple Pulmonary Resp Exam: Clear Bilaterally, Breath Sounds Equal Cardiology CV Exam: Regular, Normal Sinus Rhythm Gastrointestinal/Abdomen GI Exam: Soft, Non-Tender, Bowel Sounds Present Integumentary Skin Exam: Lesion(s) Extremeties Extremities Exam: No Edema Neurologic Neuro Exam: Alert, Awake Assessment/Plan Problem List: (1) Kidney transplant status, cadaveric Plan: Cr 1.9 Patient is on Prograf 4 mg twice a day and prednisone 5 mg daily continue to monitor levels continue with hydration decrease IVF 42 ML/HR [place] level low will recheck it tomorrow (2) Acute on chronic renal insufficiency Plan: Improve with hydration (3) Sepsis Plan: Likely due to his recent procedure (4) Cellulitis Plan: On Levaquin/ Metronidazole MRSA in wound contaminant ? (5) IDDM (insulin dependent diabetes mellitus) Plan: Blood glucoses elevated (6) Hypertension Plan: Labile follow and adjust medication Problem Qualifiers (1) Sepsis: Qualified Code: A41.9 - Sepsis, due to unspecified organism (2) Cellulitis: Qualified Code: L03.114 - Cellulitis of left upper extremity Surekha Yoo MD March 28, 2017 16:13
--- NOTE | 2017-03-28 17:34 | RADRPT ---
EXAM DATE/TIME: 03/28/2017 17:06 [facility] COMPARISON: CT ABDOMEN & PELVIS W/O CONTRAST, October 15, 2015, 10:52. POC ULTRASOUND VASCULAR ACCESS TEAM, March 27, 2017, 16:57. CHEST SINGLE AP, March 26, 2017, 20:22. INDICATIONS : Diffuse upper abdomen pain with diarrhea. ORAL CONTRAST: No oral contrast ingested. RADIATION DOSE: 13.02 CTDIvol (mGy) MEDICAL HISTORY : Cardiovascular disease. Hypertension. Renal failure, chronic. SURGICAL HISTORY : Kidney transplant, right side, in 2012 ENCOUNTER: Initial ACUITY: 4 - 6 days PAIN SCALE: 9/10 LOCATION: Bilateral upper quadrant TECHNIQUE: Volumetric scanning of the abdomen and pelvis was performed. Using automated exposure control and ad justment of the mA and/or kV according to patient size, radiation dose was kept as low as reasonably achievable to obtain optimal diagnostic quality images. FINDINGS: LOWER LUNGS: Mild basilar atelectasis LIVER: Homogeneous density without lesion. There is no dilation of the biliary tree. No calcified gallston es. SPLEEN: Normal size without lesion. PANCREAS: Within normal limits. KIDNEYS: End-stage severely atrophic [place] kidneys. Right lower quadrant transplant kidney which appears stab le ADRENAL GLANDS: Within normal limits. VASCULAR: There is no aortic aneurysm. BOWEL/MESENTERY: There is an appendicolith in the base of the appendix which is dilated with moderate surrounding infl ammatory changes. Distal colonic diverticula noted. No abnormal small bowel dilatation. ABDOMINAL WALL: Within normal limits. RETROPERITONEUM: There is no lymphadenopathy. BLADDER: Decompressed with Vergara catheter. REPRODUCTIVE: Within normal limits. INGUINAL: There is no lymphadenopathy or hernia. MUSCULOSKELETAL: Within normal limits for patient age. CONCLUSION: Appendicitis Ramakrishna Holloway MD on March 28, 2017 at 17:26 Board Certified Radiologist. This report was verified electronically.
[2017-03-28] MEDS: metroNIDAZOLE 500 MG INJ 100 ML IV SCH ×2 (18:17→22:48)
--- NOTE | 2017-03-28 20:51 | MB ---
cc: NICOLE SHERIFF M.D. DATE OF CONSULTATION: 03/28/2017 REASON FOR CONSULTATION: Appendicitis. HISTORY OF PRESENT ILLNESS: The patient is a 76-year-old male with multiple medical problems who presented on 03/26/2017 in the evening hours with an approximately three to four day history of feeling poorly. The patient had some confusion and fever and was found to have elevated WBCs, elevated BUN, creatinine and elevated glucose. He was given a bolus and clindamycin started. This was switched over as it was felt that the patient had sepsis due to an infection in his arm with cellulitis. The patient has gradually improved with BUN and creatinine but WBCs have decreased slightly to 13,000 from 15.6; however, the patient was noted to have abdominal pain and a CT scan was ordered this afternoon. This demonstrated appendicitis without evidence of perforation. The patient is currently on antibiotics and I have been asked to see the patient for consideration of treatment for this. PAST MEDICAL HISTORY: His past medical history is extensive and includes the followin. End-stage renal disease with a renal transplant in 2012. 2. Insulin-dependent diabetes mellitus. 3. Hypertension. 4. Multiple skin cancers with basal cell cancers recently and melanoma in 2005. 5. Gastroesophageal reflux disease (GERD). 6. Coronary artery disease with cardiac stent x1. 7. Hyperlipidemia. 8. Bilateral ankle fractures in November of this year. 9. The patient had cardiac stent in the circumflex in 2010. 10. The patient had a left AV fistula placement, and this is still present. 11. The patient had neck surgery with plate. 12. Cataract surgery. MEDICATIONS: His medication list is extensive and includes: 1. Norvasc 10 milligrams p.o. daily. 2. Lipitor 40 milligrams daily. 3. Calcium carbonate 500 milligrams as needed. 4. Vitamin D3 2000 units daily. 5. Vitamin B12 1000 micrograms daily. 6. Cardura 8 milligrams p.o. at bedtime. 7. Finasteride 5 milligrams p.o. daily. 8. Folic acid 1 milligrams p.o. daily. 9. Furosemide 20 milligrams p.o. daily. 10. Gabapentin 300 milligrams p.o. three times a day. 11. Hydralazine 100 milligrams p.o. three times a day. 12. Magnesium oxide 800 milligrams twice a day. 13. Metoprolol 100 milligrams twice a day. 14. Prednisone 5 milligrams p.o. daily. 15. Primidone 50 milligrams p.o. twice a day. 16. Levothyroxine 75 micrograms p.o. daily. 17. Tacrolimus 4 milligrams p.o. q. 12 hours. ALLERGIES: The patient has allergy to: 1. AMOXICILLIN WHICH CAUSES HIVES. 2. PENICILLIN WHICH CAUSES ANAPHYLAXIS. PHYSICAL EXAMINATION: GENERAL: Physical exam reveals an obese male who does not feel well. VITAL SIGNS: Blood pressure 145/66, pulse 64, respirations 20, temperature 98.6, 96% saturation on room air. HEAD, EYES, EARS, NOSE, THROAT: Sclerae are anicteric. CHEST: Chest is clear to auscultation. CARDIAC: Cardiac exam reveals regular rate and rhythm. ABDOMEN: Abdomen is soft with tenderness in the lower abdomen with most pronounced tenderness in the right lower quadrant. There is some guarding but no rebound. There is a well-healed right scar near the groin. Kidney transplant is located in this location. The patient has no other abdominal scars or hernias noted. EXTREMITIES: The patient is able to move all four extremities. LABORATORY STUDIES: Laboratory values demonstrate WBCs of 13.0, platelets are 128,000. BUN and creatinine are elevated at 30 and 1.98. INR is normal at 1.1. The patient is growing MRSA from the arm. Urine culture shows no growth in 48 [address]. IMAGING STUDIES: CT of the abdomen and pelvis completed and read at 05:30 this evening demonstrates appendicolith at the base of the appendix, which is dilated with moderate surrounding inflammatory changes. The patient is felt to have appendicitis without perforation. ASSESSMENT: 76-year-old male with multiple medical problems and probable acute appendicitis on top of cellulitis of the left arm. The patient has just eaten dinner and has received heparin this afternoon subcutaneously. The patient is a Islam and will refuse any blood products. Given these findings and these circumstances, I have discussed with the patient and his daughter that the best course of action as he is not acutely ill at this moment and is not septic and does not have perforation, that allowing the heparin to be held and to undergo anesthesia on an empty stomach would be safest. They have indicated to me that they would refuse all blood products even if it meant that he would without them. I have indicated understanding of this request. I have discussed risks of surgery with the patient and his daughter including, but not limited to, bleeding, the high risk of infection given his immunosuppression, possible need for drain placement, possible drainage required percutaneously postoperatively, possible need for reoperation, as well as possibility of intestinal injury or leakage with fistula formation. I have discussed remedies, consequences, alternatives and convalescence; I have discussed with them that he would likely not be discharged for a few days after the surgery given his other medical problems. They vocalized clear understanding of this. MD CAROLINE Callaway/BRY /8:15 PM /8:32 PM
[2017-03-28] MEDS: DOXAZOSIN MESYLATE 4 MG TAB PO SCH (21:30)
[2017-03-28] MEDS: MAGNESIUM OXIDE 400 MG TAB PO SCH (21:31)
[2017-03-28] MEDS: INSULIN DETEMIR 100 UNITS/ML VIAL SQ SCH (21:31)
[2017-03-28] MEDS: ATORVASTATIN 40 MG TAB PO SCH (21:31)
[2017-03-29] VITALS (10 sets, daily range): BP systolic 147–205; BP diastolic 65–84; PULSE 65–77; RESP 16–22; TEMP 96.2–102.2; O2SAT 92–95
[2017-03-29] MEDS ORDERED: LACTATED RINGER'S 1000 ML IV PRN (04:30)
[2017-03-29] MEDS: SODIUM CHLOR 0.9% 1000 ML INJ 1,000 ML IV SCH ×2 (05:15→11:45)
[2017-03-29] MEDS: cloNIDine HCL 0.1 MG TAB PO PRN (05:16)
[2017-03-29] MEDS: metroNIDAZOLE 500 MG INJ 100 ML IV SCH ×4 (05:16→21:40)
[2017-03-29] MEDS: LEVOTHYROXINE SODIUM 75 MCG TAB PO SCH (05:16)
[2017-03-29] MEDS: INSULIN ASPART SUPPLEMENTAL SCALE SQ SCH ×4 (06:20→21:32)
[2017-03-29 06:43] LABS: AUTOMATED NEUTROPHIL # 8.2 TH/MM3 (1.8-7.7); BASOPHIL % 0.1 % (0.0-2.0); EOSINOPHIL % 0.3 % (0.0-4.0); HEMATOCRIT 34.4 % (39.0-51.0); HEMO FLAGS DIFF FINAL; LYMPH % 5.9 % (9.0-44.0); LYMPHOCYTE # 0.5 TH/MM3 (1.0-4.8); MEAN CELL VOLUME 90.8 FL (80.0-100.0); MEAN CORPUSCULAR HEMOGLOBIN 30.4 PG (27.0-34.0); MEAN CORPUSCULAR HGB CONC 33.5 % (32.0-36.0); MONO % 5.6 % (0.0-8.0); NEUT % 88.1 % (16.0-70.0); PLATELET COUNT 131 TH/MM3 (150-450); RED BLOOD COUNT 3.79 MIL/MM3 (4.50-5.90); RED CELL DISTRIBUTION WIDTH 13.4 % (11.6-17.2); WHITE BLOOD COUNT 9.3 TH/MM3 (4.0-11.0)
[2017-03-29] MEDS ORDERED: ACETAMINOPHEN 1000 MG/100 ML VIAL IV ONE (06:55)
[2017-03-29] MEDS ORDERED: fentaNYL CITRATE 250 MCG/5 ML AMP ONE ×2 (06:55→11:20)
[2017-03-29 07:13] LABS: BICARBONATE 21.3 MEQ/L (21.0-32.0); POTASSIUM 4.7 MEQ/L (3.5-5.1)
[2017-03-29] MEDS ORDERED: BUPIVACAINE/EPINEPHRINE 0.25% PF 30 ML VIAL ONE (08:03)
[2017-03-29] MEDS ORDERED: BUPIVACAINE/EPINEPHRINE 0.25% 50 ML VIAL ONE (08:05)
[2017-03-29] MEDS ORDERED: CIPROFLOXACIN 400 MG PREMIX 200 ML ONE (08:56)
[2017-03-29] MEDS: FOLIC ACID 1 MG TAB PO SCH (09:00)
[2017-03-29] MEDS: METOPROLOL TARTRATE 100 MG TAB PO SCH ×3 (09:00→21:30)
[2017-03-29] MEDS: hydrALAZINE HCL 100 MG TAB PO SCH ×3 (09:00→16:51)
[2017-03-29] MEDS: predniSONE 5 MG TAB PO SCH ×2 (09:00→13:32)
[2017-03-29] MEDS: MAGNESIUM OXIDE 400 MG TAB PO SCH ×2 (09:00→19:54)
[2017-03-29] MEDS: TACROLIMUS 1 MG CAP PO SCH ×3 (09:00→21:31)
[2017-03-29] MEDS: FUROSEMIDE 20 MG TAB PO SCH ×2 (09:00→13:31)
[2017-03-29] MEDS: GABAPENTIN 300 MG CAP PO SCH ×3 (09:00→16:51)
[2017-03-29] MEDS: LACTOBACILLUS ACIDOPHILUS TAB PO SCH ×3 (09:00→16:51)
[2017-03-29] MEDS: CHOLECALCIFEROL (VIT D3) 1000 UNIT TAB PO SCH ×2 (09:00→13:02)
[2017-03-29] MEDS: PRIMIDONE 50 MG TAB PO SCH ×3 (09:00→19:55)
[2017-03-29] MEDS: INSULIN DETEMIR 100 UNITS/ML VIAL SQ SCH ×2 (09:00→19:55)
[2017-03-29] MEDS: THIAMINE HCL 100 MG TAB PO SCH (09:00)
[2017-03-29] MEDS: CYANOCOBALAMIN 1,000 MCG TAB PO SCH (09:00)
[2017-03-29] MEDS: SODIUM CHLORIDE 0.9% FLUSH 10 ML FLUSH IV FLUSH SCH ×2 (09:00→19:50)
[2017-03-29] MEDS ORDERED: PROPOFOL 200 MG/20 ML AMP IV ONE (09:25)
[2017-03-29] MEDS ORDERED: NEOSTIGMINE 3 MG/3 ML SYR IV ONE (09:25)
[2017-03-29] MEDS ORDERED: ONDANSETRON HCL 4 MG/2 ML VIAL IV PUSH ONE (09:25)
--- NOTE | 2017-03-29 10:54 | HHI.PR ---
cc: Raffi Bianchi MD Immediate Post Op Note Procedure Date: March 29, 2017 Pre Op Diagnosis: Acute appendicitis Post Op Diagnosis: Gangrenous appendicitis Surgeon: Raffi Bianchi Lathe Setup Operator(s): Lauryn Currie CFA Procedure: Laparoscopic appendectomy Complications: None Specimen(s) removed: Appendix to pathology Estimated blood loss: <30 ml Anesthesia: General Drains: TIFFANY IVF (900 ml) Patient to: PACU Patient Condition: Good Date/Time of Procedure: SEE SURGICAL CARE RECORD Raffi Bianchi MD March 29, 2017 10:53
[2017-03-29] MEDS ORDERED: *morphine SULFATE 8 MG/ML PERIprocedure ONLY ONE ×3 (11:24→11:56)
[2017-03-29] MEDS ORDERED: *HYDROmorphone PF 1 MG VIAL PERIprocedural Use ONLY ONE (12:12)
[2017-03-29] MEDS ORDERED: *RESP: ALBUTEROL 2.5 MG/3 ML NEB (PRN) PERIprocedural Use ONLY NEB ONE (12:14)
[2017-03-29] MEDS ORDERED: RESP: ALBUTEROL 1.25 MG/3 ML NEB (PRN) NEB (13:00)
--- NOTE | 2017-03-29 14:31 | HHI.NPPN ---
Subjective History of Present Illness 76 year old with kidney transplant DM,skin cancer s/p excision cellulitis left arm MRSA Additional Remarks Patient is alert, no SOB, mild abd. discomfort, no headache. Review of Systems General Constitutional: Fatigue Gastrointestinal Gastrointestinal: Abdominal Pain Objective Data Data 03/28/17 03/29/17 19:00 07:00 Intake Total 2964 ml 475 ml Output Total 500 ml 800 ml Balance 2464 ml -325 ml Intake Oral 900 ml 0 ml IV Total 2064 ml 475 ml Output Urine Total 500 ml 800 ml # Bowel Movements 7 8 Vital Signs Date Time Temp Pulse Resp B/P Pulse Ox O2 Delivery O2 Flow Rate FiO2 03/29/17 08:17 69 03/29/17 08:00 98.2 67 20 205/84 93 03/29/17 06:25 97.8 65 18 162/76 94 03/29/17 06:20 154/76 03/29/17 04:00 98.4 68 20 169/74 94 03/29/17 00:00 98.7 66 20 170/74 95 03/28/17 20:39 98.5 79 18 198/83 93 03/28/17 16:00 98.6 64 20 145/66 96 Automatic Cuff -: 03/29/17 0545 03/29/17 0545 Physical Exam General Appearance: No Acute Distress, Comfortable Neck Neck Exam: Neck Supple Pulmonary Resp Exam: Clear Bilaterally, Breath Sounds Equal Cardiology CV Exam: Regular, Normal Sinus Rhythm Gastrointestinal/Abdomen GI Exam: Soft, Bowel Sounds Present, Distended (with drain.) Integumentary Skin Exam: Lesion(s) Extremeties Extremities Exam: Trace Edema Neurologic Neuro Exam: Alert, Awake Assessment/Plan Problem List: (1) Kidney transplant status, cadaveric Plan: Patient is on Prograf 4 mg twice a day and prednisone 5 mg daily continue to monitor levels continue with hydration. Tacro level is pending. Creatinine is now 1.8, close to his baseline. (2) Acute on chronic renal insufficiency Plan: Improve with hydration (3) Sepsis Plan: Likely due to his recent procedure (4) Cellulitis Plan: On Levaquin/ Metronidazole MRSA in wound contaminant ? (5) IDDM (insulin dependent diabetes mellitus) Plan: Blood glucoses elevated (6) Hypertension Plan: Still elevated, on Metoprolol and Amlodipine, and clonidine PRN. Problem Qualifiers (1) Sepsis: Qualified Code: A41.9 - Sepsis, due to unspecified organism (2) Cellulitis: Qualified Code: L03.114 - Cellulitis of left upper extremity (3) Hypertension: Qualified Code: I10 - Essential hypertension Jordan Stark MD March 29, 2017 14:31
--- NOTE | 2017-03-29 14:42 | MP ---
cc: RAFFI BIANCHI M.D. DATE OF SURGERY: 03/29/2017. PREOPERATIVE DIAGNOSIS: Acute appendicitis. POSTOPERATIVE DIAGNOSIS: Gangrenous appendicitis without perforation. OPERATIVE PROCEDURE PERFORMED: Laparoscopic appendectomy. SURGEON: Raffi Bianchi MD. ANESTHESIA: General endotracheal. ESTIMATED BLOOD LOSS Less than 30 mL. FLUIDS: 900 mL crystalloid. COMPLICATIONS: None. DRAINS: Constantino-Schaeffer drain x1. SPECIMEN: Appendix to pathology. DESCRIPTION OF THE PROCEDURE IN DETAIL: The patient was taken to the operating room and placed on the operating table in the supine position. After an adequate level of general endotracheal anesthesia was achieved, the abdomen was prepped and draped in the usual fashion. A time-out was taken confirming the correct patient, site and procedure to be performed. Skin and subcutaneous tissue was infiltrated with local anesthetic and an incision made in the umbilicus and carried through the fascia sharply. A 12 mm balloon trocar was inserted and the balloon inflated. The patient was placed in Trendelenburg position and the abdomen insufflated. A 5 mm 30 degree laparoscope was then inserted. A 5-mm trocar was placed in the suprapubic region and entered the abdominal cavity under direct vision uneventfully. The patient's kidney transplant was noted bulging in the right lower quadrant and care was taken to avoid this area completely. The appendix and some of the inflammatory tissue appeared to be plastered to the peritoneum in this area and this was bluntly dissected away. The second 5 mm trocar was then placed in the right lower quadrant and entered the abdominal cavity under direct vision uneventfully. The appendix was then gently bluntly dissected off of the surrounding structures and dissected back to the base. A harmonic scalpel was used to divide the mesoappendix and at this point a 0-PDS Endoloop was brought in and cinched down at the base of the appendix. The appendix was divided 1 cm distal to this with the harmonic scalpel. The appendix was placed into an EndoCatch device and removed via the umbilical port while observing via the right lower quadrant 5-mm trocar site. The abdomen was reexamined and copious irrigation was placed in the right lower quadrant; this was aspirated from the pelvis and the right lower quadrant. No active bleeding was noted. The patient had placement of Juaquin powder in the right lower quadrant at the raw surface area where the patient had previously the area of dissection had occurred. When this was placed, a Herman drain was brought in via the right lower quadrant incision. This was fixed to the skin with a 3-0 nylon suture. The umbilicus was observed and interrupted #0 Vicryl sutures were placed in these under direct vision. There was no bleeding noted when this was completed as there was some bloody drainage noted dripping during the procedure. When this was completed, insufflation was discontinued and the skin was closed at the suprapubic and the umbilical skin site with 4-0 Vicryl in an interrupted buried fashion. A 4x4 was applied around the drain and this was secured in place. The patient was taken back to the recovery room in stable condition. Sponge and needle counts were reported be correct. MD CAROLINE Callaway/JCLauren /11:06 AM /2:31 PM
--- NOTE | 2017-03-29 14:43 | HHI.PR ---
Subjective Remarks feeling better minimal abdominal discomfort Objective Vitals Vital Signs Date Time Temp Pulse Resp B/P Pulse Ox O2 Delivery O2 Flow Rate FiO2 03/29/17 08:17 69 03/29/17 08:00 98.2 67 20 205/84 93 03/29/17 06:25 97.8 65 18 162/76 94 03/29/17 06:20 154/76 03/29/17 04:00 98.4 68 20 169/74 94 03/29/17 00:00 98.7 66 20 170/74 95 03/28/17 20:39 98.5 79 18 198/83 93 03/28/17 16:00 98.6 64 20 145/66 96 Automatic Cuff I/O 03/28/17 03/28/17 03/28/17 03/29/17 03/29/17 03/29/17 07:00 15:00 23:00 07:00 15:00 23:00 Intake Total 240 ml 2964 ml 475 ml 0 ml 1392 ml Output Total 600 ml 500 ml 400 ml 400 ml Balance -360 ml 2464 ml 75 ml -400 ml 1392 ml Intake Oral 240 ml 900 ml 0 ml IV Total 2064 ml 475 ml 1392 ml Output Urine Total 600 ml 500 ml 400 ml 400 ml # Bowel Movements 6 7 8 Result Diagram: 03/29/17 0545 03/29/17 0545 Imaging Last Impressions Abdomen/Pelvis CT 03/28/17 1527 Signed Impressions: Service Date/Time: Tuesday, March 28, 2017 17:06 - CONCLUSION: Appendicitis Ramakrishna Holloway MD Chest X-Ray 03/26/172002 Signed Impressions: Service Date/Time: Sunday, March 26, 2017 20:22 - CONCLUSION: No acute disease. Raffi Boo MD Objective Remarks anicteric lungs no rales or wheezes regular rhythm abdomen- soft, , + bowel sounds, no guarding, extremities- LUE-- deltoid area- dry scab, mild erythema, no induration no lower extremities edema Procedures 03/29- explor lap Date of Insertion: March 27, 2017 A/P Assessment and Plan Mr. Gaming is a 76 y/o male with a history of end-stage renal disease status post renal transplant in 2012 is admitted with sepsis secondary to left arm cellulitis s/p basal cell CA removal. Sepsis -secondary to acute gngrenous appendicitis S/P appendectomy 03/29 Leukocytosis with neutrophilia, fever, lactic acidosis -due to above -on cipro + Flagyl. GS ff Left left deltoid scab wound- decrease erythema, dry, no active drainage Acute KI on chronic renal failure in a renal transplant patient - BUN 35, creatinine 2.55, estimated GFR 25 - Baseline: creatinine trending down - Monitor intake and output every shift - IV fluid hydration with normal saline - Avoid nephrotoxins . conitnue on Prednisone - Dr. Yoo ff Hyperglycemia secondary to diabetes mellitus and infection - Accu-Cheks before meals and at bedtime with low-dose NovoLog sliding scale coverage - Hypoglycemia treatment protocol ordered - Monitor trends and blood glucose readings and adjust treatment as needed Hypertensive urgency - ff BPs - Hydralazine 10 mg IV push every 30 minutes as needed for blood pressure greater than 180/90 - Restart home antihypertensive medications - Monitor trends in blood pressure readings and adjust treatment as needed DVT prophylaxis - Heparin 5000 units subq q8h Asad Rubio MD March 29, 2017 14:43
[2017-03-29] MEDS ORDERED: LEVOFLOXACIN 250 MG PREMIX INJ 50 ML IV SCH (16:00)
[2017-03-29] MEDS: ACETAMINOPHEN/HYDROcodone 325 MG/7.5 MG TAB PO PRN (16:51)
[2017-03-29] MEDS: CIPROFLOXACIN 400 MG PREMIX 200 ML IV SCH (19:49)
[2017-03-29] MEDS: ACETAMINOPHEN 325 MG TAB PO PRN (19:50)
[2017-03-29] MEDS: ATORVASTATIN 40 MG TAB PO SCH (19:51)
[2017-03-29] MEDS: DOXAZOSIN MESYLATE 4 MG TAB PO SCH (21:31)
[2017-03-30] VITALS (10 sets, daily range): BP systolic 129–194; BP diastolic 53–85; PULSE 67–80; RESP 17–22; TEMP 96.7–101.5; O2SAT 92–97
[2017-03-30] MEDS: ACETAMINOPHEN/HYDROcodone 325 MG/7.5 MG TAB PO PRN ×4 (01:07→20:17)
[2017-03-30] MEDS: CALCIUM CARBONATE 500 MG CHEWABLE TAB CHEW PRN ×3 (03:14→20:17)
[2017-03-30] MEDS: metroNIDAZOLE 500 MG INJ 100 ML IV SCH ×4 (03:16→22:32)
[2017-03-30] MEDS: SODIUM CHLOR 0.9% 1000 ML INJ 1,000 ML IV SCH (03:22)
[2017-03-30] MEDS: HYDROmorphone HCL PF 2 MG/ML VIAL IV PUSH PRN (03:22)
[2017-03-30] MEDS: ACETAMINOPHEN 325 MG TAB PO PRN (03:31)
--- NOTE | 2017-03-30 04:18 | HHI.PR ---
Addendum to Inpatient Note Addendum Reason: Additional Documentation Additional Information S: Linda team paged at approximately 0400 to patient's room for respiratory distress. Per nursing staff patient is postop day 1 from a laparoscopic appendectomy. Throughout the day he is a fever up to 102.2 that is a minimal response to antipyretics. He is currently on Flagyl and ciprofloxacin antibiotics with normal saline at 75 mL per hour. Upon arrival patient with oxygen saturation of 96% while on 4 L via mask. He is mildly short of breath and able to converse via short sentences. O: GENERAL: 76-year-old male sitting up at the side of the bed in mild respiratory distress. SKIN: Warm and dry. No rash. HEENT: Atraumatic, normocephalic with EOMI. No LAD appreciated. Trachea midline. CARDIOVASCULAR: Regular rate and rhythm without obvious murmurs, gallops, or rubs. RESPIRATORY: Clear to auscultation bilaterally with shallow air movement. No CRW. Mild increased work of breathing with accessory muscle use. GASTROINTESTINAL: Abdomen soft, mildly tender with positive bowel sounds. MUSCULOSKELETAL: No cyanosis or edema. NEURO/PSYCH: Afocal. Awake, alert, and oriented x3. Able to converse in short sentences due to respiratory symptoms. A: Mr. Gaming is a 76-year-old male who is postop day 1 from laparoscopic appendectomy in mild respiratory distress. P: Decrease normal saline to 30 mL per hour as patient is positive approximately 4 L over the last 2 days Breathing treatment ordered as well as chest x-ray Bedside glucose 126 per nursing staff Yasmeen Casarez, primary team FOOD SAFETY MANAGER, is currently at the bedside and will take over further management SDW: Dr. Derek Bui,Raheem Evans MD R1 March 30, 2017 04:18
[2017-03-30] MEDS ORDERED: RESP: ALBUTEROL 2.5 MG/IPRATROPIUM 0.5 MG NEB (PRN) NEB (04:30)
[2017-03-30] MEDS ORDERED: FUROSEMIDE 20 MG/2 ML VIAL IV PUSH ONE (04:30)
[2017-03-30] MEDS: LEVOTHYROXINE SODIUM 75 MCG TAB PO SCH (04:51)
[2017-03-30] MEDS: INSULIN ASPART SUPPLEMENTAL SCALE SQ SCH ×4 (04:51→20:18)
[2017-03-30] MEDS: HEPARIN SODIUM - SQ 10,000 UNITS/ML VIAL SQ SCH ×3 (04:51→22:33)
--- NOTE | 2017-03-30 05:51 | RADRPT ---
EXAM DATE/TIME: 03/30/2017 05:13 [facility] COMPARISON: CHEST SINGLE AP, March 26, 2017, 20:22. INDICATIONS : Short of breath. MEDICAL HISTORY : None. SURGICAL HISTORY : None. ENCOUNTER: Subsequent ACUITY: 3 days PAIN SCORE: 6/10 LOCATION: Bilateral chest FINDINGS: A single view of the chest demonstrates cardiomegaly with indistinctness of the pulmonary vasculature and slight interstitial edema. Osseous structures are intact. CONCLUSION: 1. Cardiomegaly with interstitial edema. Delvin Mackenzie MD on March 30, 2017 at 5:48 Board Certified Radiologist. This report was verified electronically.
--- NOTE | 2017-03-30 06:48 | HHI.PR ---
Addendum to Inpatient Note Addendum Reason: Additional Documentation Additional Information VERITO was called at 0400 as patient was diaphoretic and extremely short of breath - I arrived to see the patient sitting on the side of the bed in mild respiratory distress receiving a DuoNeb nebulizer treatment. He denies any chest pain and tells me he does not feel like he is having any difficulty breathing. He reports some mild right lower quadrant postoperative pain - status post appendectomy 03/29/2017. He has bibasilar rales on auscultation of lungs and 1+ pitting edema in extremities noted and he has had a positive fluid balance of about two liters per day over the past two days. He is diaphoretic and has been running fevers overnight - diaphoresis likely related to fever breaking as temperature went from 101.2 to 97.2 (T Max 102.2). Blood pressure was 129/53, pulse was 80, respiratory rate was 24 while I was in the room. Oxygen saturation was initially 92% but improved to 95% on supplemental oxygen 4 L nasal cannula. Blood glucose was 226. I ordered Lasix 20 mg IV. He is s/p renal transplant in 2012 and on immunosuppressant therapy. I will check blood cultures x 2, CBC, and lactic acid. Chest x-ray shows slight interstitial edema and cardiomegaly. I have asked nursing to hold his fluids for now. We'll also check a BMP to see what her renal indices and electrolytes status is. I have added a BNP to labs and I have ordered Incentive Spirometer and discussed this with patient's RN. Of note, after the Lasix and duonebulizer treatment, the patient's condition improved and he was able to lie back down in bed comfortably. He was in no distress when I left the floor and demonstrated considerable clinical improvement. Yasmeen Casarez March 30, 2017 06:48
[2017-03-30 07:10] LABS: AUTOMATED NEUTROPHIL # 9.2 TH/MM3 (1.8-7.7); BASOPHIL % 0.4 % (0.0-2.0); HEMATOCRIT 33.2 % (39.0-51.0); HEMO FLAGS DIFF FINAL; LYMPH % 4.1 % (9.0-44.0); LYMPHOCYTE # 0.4 TH/MM3 (1.0-4.8); MEAN CELL VOLUME 91.2 FL (80.0-100.0); MEAN CORPUSCULAR HEMOGLOBIN 30.7 PG (27.0-34.0); MEAN CORPUSCULAR HGB CONC 33.7 % (32.0-36.0); MONO % 7.3 % (0.0-8.0); NEUT % 88.2 % (16.0-70.0); PLATELET COUNT 151 TH/MM3 (150-450); RED BLOOD COUNT 3.63 MIL/MM3 (4.50-5.90); RED CELL DISTRIBUTION WIDTH 13.6 % (11.6-17.2); WHITE BLOOD COUNT 10.4 TH/MM3 (4.0-11.0)
[2017-03-30 07:29] LABS: POTASSIUM 5.3 MEQ/L (3.5-5.1)
[2017-03-30] MEDS: GABAPENTIN 300 MG CAP PO SCH ×3 (08:16→17:10)
[2017-03-30] MEDS: THIAMINE HCL 100 MG TAB PO SCH (08:16)
[2017-03-30] MEDS: PRIMIDONE 50 MG TAB PO SCH ×2 (08:16→20:04)
[2017-03-30] MEDS: hydrALAZINE HCL 100 MG TAB PO SCH ×3 (08:16→17:10)
[2017-03-30] MEDS: LACTOBACILLUS ACIDOPHILUS TAB PO SCH ×3 (08:16→17:09)
[2017-03-30] MEDS: FUROSEMIDE 20 MG TAB PO SCH (08:17)
[2017-03-30] MEDS: predniSONE 5 MG TAB PO SCH (08:17)
[2017-03-30] MEDS: MAGNESIUM OXIDE 400 MG TAB PO SCH ×2 (08:17→20:03)
[2017-03-30] MEDS: TACROLIMUS 1 MG CAP PO SCH ×2 (08:17→20:05)
[2017-03-30] MEDS: CHOLECALCIFEROL (VIT D3) 1000 UNIT TAB PO SCH (08:17)
[2017-03-30] MEDS: CYANOCOBALAMIN 1,000 MCG TAB PO SCH (08:17)
[2017-03-30] MEDS: FOLIC ACID 1 MG TAB PO SCH (08:18)
[2017-03-30] MEDS: INSULIN DETEMIR 100 UNITS/ML VIAL SQ SCH ×2 (08:18→20:05)
[2017-03-30] MEDS: CIPROFLOXACIN 400 MG PREMIX 200 ML IV SCH ×2 (08:18→19:58)
[2017-03-30] MEDS: SODIUM CHLORIDE 0.9% FLUSH 10 ML FLUSH IV FLUSH SCH ×2 (08:18→19:58)
[2017-03-30] MEDS: METOPROLOL TARTRATE 100 MG TAB PO SCH ×2 (08:18→20:03)
--- NOTE | 2017-03-30 09:18 | HHI.NPPN ---
Subjective History of Present Illness 76 year old with kidney transplant DM,skin cancer s/p excision cellulitis left arm MRSA Additional Remarks Patient is alert, no SOB, mild abd. discomfort, has fever last night, now afebrile. Review of Systems General Constitutional: Fatigue Gastrointestinal Gastrointestinal: Abdominal Pain Objective Data Data 03/29/17 03/30/17 19:00 07:00 Intake Total 2697 ml 1388 ml Output Total 775 ml 860 ml Balance 1922 ml 528 ml Intake Oral 50 ml 240 ml IV Total 1747 ml 1148 ml Other 900 ml Output Urine Total 525 ml 800 ml Drainage Total 220 ml 60 ml Estimated Blood Loss 30 ml # Bowel Movements 0 Vital Signs Date Time Temp Pulse Resp B/P Pulse Ox O2 Delivery O2 Flow Rate FiO2 03/30/17 08:00 97.7 69 17 143/65 92 03/30/17 04:59 97.2 03/30/17 04:04 95 Nasal Cannula 4.00 03/30/17 04:00 101.2 80 22 129/53 92 03/30/17 03:55 95 4.00 03/30/17 00:00 101.5 73 20 140/65 92 03/29/17 20:00 102.2 77 22 148/65 93 03/29/17 17:56 74 163/78 03/29/17 16:00 97.6 72 16 195/84 94 03/29/17 15:00 96.2 68 22 147/67 92 03/29/17 12:45 98.5 68 18 151/67 93 Nasal Cannula 3 03/29/17 12:30 68 15 155/66 94 Nasal Cannula 3 03/29/17 12:15 68 13 153/67 93 Nasal Cannula 3 03/29/17 12:00 71 16 166/72 91 Nasal Cannula 3 03/29/17 11:45 71 19 172/121 92 Nasal Cannula 3 03/29/17 11:30 75 21 152/92 94 Nasal Cannula 3 03/29/17 11:15 75 21 207/86 95 Nasal Cannula 3 03/29/17 11:11 Nasal Cannula 3 03/29/17 11:06 98.3 69 10 226/117 98 Ambu Bag 10 100 -: 03/30/17 0633 03/30/17 0633 Microbiology 03/30/17 Aerobic Blood Culture, Received Pending 03/30/17 Anaerobic Blood Culture, Received Pending 03/30/17 Aerobic Blood Culture, Received Pending 03/30/17 Anaerobic Blood Culture, Received Pending Physical Exam General Appearance: No Acute Distress, Comfortable Neck Neck Exam: Neck Supple Pulmonary Resp Exam: Clear Bilaterally, Breath Sounds Equal Cardiology CV Exam: Regular, Normal Sinus Rhythm Gastrointestinal/Abdomen GI Exam: Soft, Bowel Sounds Present, Distended (with drain.) Integumentary Skin Exam: Lesion(s) Extremeties Extremities Exam: Trace Edema Neurologic Neuro Exam: Alert, Awake Assessment/Plan Problem List: (1) Kidney transplant status, cadaveric Plan: Patient is on Prograf 4 mg twice a day and prednisone 5 mg daily continue to monitor levels continue with hydration. Tacro level is still pending. Creatinine increased to 2.0. Continue IVF and Cipro. D/C Lasix for now. (2) Acute on chronic renal insufficiency Plan: Improve with hydration (3) Sepsis Plan: Likely due to his recent procedure (4) Cellulitis Plan: On Levaquin/ Metronidazole MRSA in wound contaminant ? (5) IDDM (insulin dependent diabetes mellitus) Plan: Blood glucoses elevated (6) Hypertension Plan: Still elevated, on Metoprolol and Amlodipine, and clonidine PRN. Problem Qualifiers (1) Sepsis: Qualified Code: A41.9 - Sepsis, due to unspecified organism (2) Cellulitis: Qualified Code: L03.114 - Cellulitis of left upper extremity (3) Hypertension: Qualified Code: I10 - Essential hypertension Jordan Stark MD March 30, 2017 09:18
--- NOTE | 2017-03-30 09:29 | HHI.PR ---
Subjective Subjective Notes halicat due to fevers, resp issues, appears more comfortable now, pain controlled Objective Vitals/I&O Vital Signs Date Time Temp Pulse Resp B/P Pulse Ox O2 Delivery O2 Flow Rate FiO2 03/30/17 08:00 97.7 69 17 143/65 92 03/30/17 04:04 Nasal Cannula 4.00 03/29/17 11:06 100 Labs Laboratory Tests Test 03/30/17 03/30/17 06:33 06:57 White Blood Count 10.4 Red Blood Count 3.63 Hemoglobin 11.2 Hematocrit 33.2 Mean Corpuscular Volume 91.2 Mean Corpuscular Hemoglobin 30.7 Mean Corpuscular Hemoglobin 33.7 Concent Red Cell Distribution Width 13.6 Platelet Count 151 Mean Platelet Volume 8.9 Neutrophils (%) (Auto) 88.2 Lymphocytes (%) (Auto) 4.1 Monocytes (%) (Auto) 7.3 Eosinophils (%) (Auto) 0.0 Basophils (%) (Auto) 0.4 Neutrophils # (Auto) 9.2 Lymphocytes # (Auto) 0.4 Monocytes # (Auto) 0.8 Eosinophils # (Auto) 0.0 Basophils # (Auto) 0.0 CBC Comment DIFF FINAL Differential Comment Sodium Level 140 Potassium Level 5.3 Chloride Level 110 Carbon Dioxide Level 23.0 Anion Gap 7 Blood Urea Nitrogen 27 Creatinine 2.09 Estimat Glomerular Filtration 31 Rate Random Glucose 259 Calcium Level 8.1 B-Type Natriuretic Peptide 206 Lactic Acid Level 1.1 Date/Time Procedure Status Source Growth 03/30/17 06:57 Aerobic Blood Culture Received Blood Peripheral Pending 03/30/17 06:57 Anaerobic Blood Culture Received Blood Peripheral Pending 03/26/17 21:35 Urine Culture - Final Complete Urine Catheterized Urine NO GROWTH IN 48 HOURS. 03/26/17 20:30 Influenza Types A,B Antigen ([place]) - Final Complete Nasal Washing NEGATIVE FOR FLU A AND B ANTIGEN.... 03/26/17 20:30 Gram Stain - Final Complete Wound Arm 03/26/17 20:30 Wound Culture - Final Complete S. Aureus Mrsa 03/26/17 20:10 Aerobic Blood Culture - Preliminary Resulted Blood Peripheral NO GROWTH IN 3 DAYS 03/26/17 20:10 Anaerobic Blood Culture - Preliminary Resulted Blood Peripheral NO GROWTH IN 3 DAYS Lungs: Wheezes Abdomen: Other (soft mild distension, incisions scant dry blood, flo serous) A/P Assessment and Plan 76-year-old male with multiple medical problems and probable acute appendicitis on top of cellulitis of the left arm. Church- fever last night, LUE mild cellulitis, no apparent abscess, s/p appy, mild distension POD 1 Lap appy PLAN c/w diet, encouraged pt to go slow oob pain control resp tx encourage IS, Lasix, breathing tx flo sxn heparin for dvt ppx medical mgnt per primary team Rafiq Miles MD March 30, 2017 09:29
--- NOTE | 2017-03-30 11:15 | HHI.PR ---
Subjective Remarks tmax 101- 101.2 last evening,with chills- Halicat called now feeling better- no nausea or vomiting, minimal abdominal discomfort, feisty - T down no further episodes of diarrhea left deltoid area- more erythema on today's exam Objective Vitals Vital Signs Date Time Temp Pulse Resp B/P Pulse Ox O2 Delivery O2 Flow Rate FiO2 03/30/17 08:00 97.7 69 17 143/65 92 03/30/17 04:59 97.2 03/30/17 04:04 95 Nasal Cannula 4.00 03/30/17 04:00 101.2 80 22 129/53 92 03/30/17 03:55 95 4.00 03/30/17 00:00 101.5 73 20 140/65 92 03/29/17 20:00 102.2 77 22 148/65 93 03/29/17 17:56 74 163/78 03/29/17 16:00 97.6 72 16 195/84 94 03/29/17 15:00 96.2 68 22 147/67 92 03/29/17 12:45 98.5 68 18 151/67 93 Nasal Cannula 3 03/29/17 12:30 68 15 155/66 94 Nasal Cannula 3 03/29/17 12:15 68 13 153/67 93 Nasal Cannula 3 03/29/17 12:00 71 16 166/72 91 Nasal Cannula 3 03/29/17 11:45 71 19 172/121 92 Nasal Cannula 3 03/29/17 11:30 75 21 152/92 94 Nasal Cannula 3 03/29/17 11:15 75 21 207/86 95 Nasal Cannula 3 I/O 03/29/17 03/29/17 03/29/17 03/30/17 03/30/17 03/30/17 07:00 15:00 23:00 07:00 15:00 23:00 Intake Total 0 ml 2697 ml 822 ml 566 ml 240 ml Output Total 400 ml 775 ml 860 ml 550 ml Balance -400 ml 1922 ml -38 ml 566 ml -310 ml Intake Oral 0 ml 50 ml 240 ml 240 ml IV Total 1747 ml 582 ml 566 ml Other 900 ml Output Urine Total 400 ml 525 ml 800 ml 550 ml Drainage Total 220 ml 60 ml Estimated Blood Loss 30 ml # Bowel Movements 8 0 0 Result Diagram: 03/30/17 0633 03/30/17 0633 Imaging Last Impressions Chest X-Ray 03/30/17 0000 Signed Impressions: Service Date/Time: Thursday, March 30, 2017 05:13 - CONCLUSION: 1. Cardiomegaly with interstitial edema. Delvin Mackenzie MD Abdomen/Pelvis CT 03/28/17 1527 Signed Impressions: Service Date/Time: Tuesday, March 28, 2017 17:06 - CONCLUSION: Appendicitis Ramakrishna Holloway MD Objective Remarks anicteric + bibasal rales regular rhythm abdomen- soft, , + bowel sounds, no guarding, extremities- LUE-- deltoid area- dry scab, ++ erythema no lower extremities edema Procedures 03/29- explor lap- grangrenous appendicitis Urinary Catheter: Yes Assessment to: Continue Vergara insert reason: Measure Accurate Output Date of Insertion: March 27, 2017 A/P Assessment and Plan Mr. Gaming is a 76 y/o male with a history of end-stage renal disease status post renal transplant in 2012 is admitted with sepsis secondary to left arm cellulitis s/p basal cell CA removal. Sepsis -secondary to acute gangrenous appendicitis S/P appendectomy 03/29 Leukocytosis with neutrophilia, fever, lactic acidosis - down New FEver recurred 03/30 this am - T max 101-with chills now feeling better -on Cipro + Flagyl- for appendicitis GS ff - ID consult for sepsis recommendation- patient is a renal TX patient- on Prednisone and Tacrolimus Left deltoid scab wound -- more erythema today on exam, no active drainage- grew MRSA ? contaminant- resistant to Cipro -get ID consult for recommendation Acute KI on chronic renal failure in a renal transplant patient - BUN 35, creatinine 2.55, estimated GFR 25 - Baseline: creatinine trending down - Monitor intake and output every shift - on IV fluid - Avoid nephrotoxins . continue on Prednisone - Dr. Yoo ff Acute Fluid overload- rales on exam - decrease IVF rate - give another Lasix 20 mg IV x 1 now then daily Diabetes mellitus type 2 uncontrolled and infection - Accu-Cheks before meals and at bedtime with low-dose NovoLog sliding scale coverage - Hypoglycemia treatment protocol ordered - Monitor trends and blood glucose readings and adjust treatment as needed - increase to 28 units bid Hypertensive urgency - ff BPs- better readings - Hydralazine 10 mg IV push every 30 minutes as needed for blood pressure greater than 180/90 - Restart home antihypertensive medications - BB, CCB, Hydralazine - Monitor trends in blood pressure readings and adjust treatment as needed DVT prophylaxis - Heparin 5000 units subq q8h Asad Rubio MD March 30, 2017 11:15 Asad Rubio MD March 30, 2017 11:15
[2017-03-30] MEDS: FUROSEMIDE 20 MG/2 ML VIAL IV PUSH SCH (11:38)
--- NOTE | 2017-03-30 17:06 | PD.ID.CON ---
History of Present Illness Service ID Consult Requested By Reason for Consult Evaluation and Mment of Fevers in a post op patient. Primary Care Physician Vera Saenz MD Diagnoses: History of Present Illness Mr. Gaming is a 76 y/o CM with h/o ESRD status post renal transplant in 2012 on immune suppressants, diabetes mellitus, hypertension, gastroesophageal reflux disease, coronary artery disease, and hyperlipidemia who presented to the emergency room on 03/26/2017 for evaluation of generalized weakness. He was noted to have a temperature of 103 in the ER. Patient reports feeling of unwellness for approx week prior to admission. He reports fever and chills for 2 days duration with max temp over 103. He denies any recent cough, shortness of breath, chest pain, diarrhea, nausea, vomiting, or dysuria. He reports some vague abdominal pain that occurs only when he has chills. He was admitted to hospital and underwent Laparoscopic appendectomy by for a gangrenous appendicitis without perforation. He is POD1 today and Halicat was called as patient had high grade fever and appeared short of breath and anxious. On further questioning, he reports he had sutures removed for skin cancer from left arm procedure done a couple of weeks ago - suture site examined with minimal redness and no exudate and no swelling. Two weeks ago, he was on antibiotics post-procedure and antibiotics were restarted a few days ago after sutures were removed. ID was consulted for evaluation and Mment of possible sepsis given the Halicat. At the time of my evaluation, patient is sitting in a chair on 7th floor. He appears comfortable and reading an e-book. He complains of heartburn and chest discomfort and had just had Ceci zafar and reports feeling better. He denies any abdominal pain or pain at LUE surgery site. Review of Systems Constitutional: COMPLAINS OF: Fever, Chills, DENIES: Diaphoretic episodes, Fatigue, Weight gain, Weight loss, Dizziness, Change in appetite, Night Sweats Endocrine: DENIES: Heat/cold intolerance, Polydipsia, Polyuria, Polyphagia Ears, nose, mouth, throat: DENIES: Tinnitus, Hearing loss, Vertigo, Nasal discharge, Oral lesions, Throat pain, Hoarseness, Ear Pain, Running Nose, Epistaxis, Sinus Pain, Toothache, Odynophagia Respiratory: DENIES: Apneas, Cough, Snoring, Wheezing, Hemoptysis, Sputum production, Shortness of breath Cardiovascular: DENIES: Chest pain, Palpitations, Syncope, Dyspnea on Exertion , PND, Lower Extremity Edema, Orthopnea, Claudication Gastrointestinal: DENIES: Abdominal pain, Black stools, Bloody stools, Constipation, Diarrhea, Nausea, Vomiting, Difficulty Swallowing, Anorexia Genitourinary: DENIES: Sexual dysfunction, Urinary frequency, Urinary incontinence, Urgency, Hematuria, Dysuria, Nocturia, Penile Discharge, Testicular Pain, Testicular Swelling Musculoskeletal: DENIES: Joint pain, Muscle aches, Stiffness, Joint Swelling, Back pain, Neck pain Integumentary: COMPLAINS OF: Abnormal pigmentation, DENIES: Nail changes, Pruritus, Rash Hematologic/lymphatic: DENIES: Bruising, Lymphadenopathy Immunologic/allergic: DENIES: Eczema, Urticaria Neurologic: DENIES: Abnormal gait, Headache, Localized weakness, Paresthesias, Seizures, Speech Problems, Tremor, Poor Balance Psychiatric: DENIES: Anxiety, Confusion, Mood changes, Depression, Hallucinations, Agitation, Suicidal Ideation, Homicidal Ideation, Delusions Past Family Social History Allergies: Coded Allergies: Amoxicillin (Unverified Allergy, Severe, HIVES, 03/26/17) Penicillin (Verified Allergy, Severe, Anaphylaxis, 03/26/17) PT STATES HE IS ALLERGIC TO AMOXICILLAN AND GETS HIVES FROM IT. Contrast Media (Verified Adverse Reaction, Severe, Urinary Freq (Inc/Dec) , 03/26/17) PT HAS RENAL TRANSPLANT Past Medical History End-stage renal disease status post renal transplant in 2012 Diabetes mellitus Hypertension Basal cell skin cancers Gastroesophageal reflux disease Coronary artery disease status post cardiac stent 1 Hyperlipidemia Bilateral ankle fractures in November 2016 - placed in immobilizers Melanoma 2006 Past Surgical History Cardiac catheterization with circumflex stenting 02/25/2011 Dr. Hightower Right Kidney Transplant in 2012 Left AV fistula placement Neck surgery with plate placement Cataract surgery Melanoma removed 2005 Reported Medications Reported Meds & Active Scripts Active Reported Lantus Inj (Insulin Glargine) 1,000 Unit/10 Ml Vial 25 Units SQ BID Norvasc (Amlodipine Besylate) 10 Mg Tab 10 Mg PO DAILY Lipitor (Atorvastatin Calcium) 40 Mg Tab 40 Mg PO HS Calcium Carbonate (Antacid) 500 Mg Chew 500 Mg CHEW PRN Vitamin D3 Maximum Strength (Cholecalciferol) 5,000 Unit Cap 2,000 Units PO DAILY Vitamin B-12 (Cyanocobalamin) 1,000 Mcg Tab 1,000 Mcg PO DAILY Cardura (Doxazosin Mesylate) 8 Mg Tab 8 Mg PO HS Finasteride 5 Mg Tab 1 Mg PO DAILY Do not crush. Folate (Folic Acid) 1 Mg Tab 1 Mg PO DAILY Furosemide 20 Mg Tab 20 Mg PO DAILY Gabapentin 300 Mg Cap 300 Mg PO TID Hydralazine (Hydralazine HCl) 100 Mg Tab 100 Mg PO TID Take with meals Magnesium Oxide 400 Mg Tab 800 Mg PO BID Metoprolol Tartrate 100 Mg Tab 100 Mg PO BID Multiple Vitamin 1 Tab 1 Tab PO DAILY Prednisone 5 Mg Tab 5 Mg PO DAILY Primidone 50 Mg Tab 50 Mg PO BID Synthroid (Levothyroxine Sodium) 75 Mcg Tab 75 Mcg PO DAILY Tacrolimus 1 Mg Cap 4 Mg PO Q12H Active Ordered Medications Current Medications Medications (Trade) Dose Ordered Sig/Sanjuana Route Start Time Stop Time Status Last Admin (NS 1000 ml Inj) 1,000 ml @ 30 mls/hr Q24H IV 03/26/17 21:30 03/30/17 03:22 (NS Flush) 2 ml UNSCH PRN IV FLUSH 03/26/17 21:30 (NS Flush) 2 ml BID IV FLUSH 03/27/17 09:00 03/28/17 21:34 (Zofran Inj) 4 mg Q6H PRN IVP 03/26/17 21:30 03/28/17 15:49 (Narcan Inj) 0.4 mg UNSCH PRN IV 03/26/17 21:30 (Lactinex) 1 tab TID PO 03/27/17 09:00 03/30/17 17:09 (Apresoline Inj) 10 mg Q30M PRN IV PUSH 03/26/17 23:30 03/26/17 23:44 (D50w (Vial) Inj) 25 ml UNSCH PRN IV PUSH 03/27/17 01:30 (Glucagon Inj) 1 mg UNSCH PRN OTHER 03/27/17 01:30 (Norvasc) 10 mg DAILY PO 03/27/17 09:00 03/30/17 08:18 (Lipitor) 40 mg HS PO 03/27/17 21:00 03/30/17 20:03 (Vitamin D3) 2,000 units DAILY PO 03/27/17 09:00 03/30/17 08:17 (Vitamin B12) 1,000 mcg DAILY PO 03/27/17 09:00 03/30/17 08:17 (Cardura) 8 mg HS PO 03/27/17 21:00 03/30/17 20:02 (Folate) 1 mg DAILY PO 03/27/17 09:00 03/30/17 08:18 (Neurontin) 300 mg TID PO 03/27/17 09:00 03/30/17 17:10 (Apresoline) 100 mg TID PO 03/27/17 09:00 03/30/17 17:10 (Synthroid) 75 mcg DAILY@06 PO 03/27/17 07:00 03/31/17 04:29 (Deltasone) 5 mg DAILY PO 03/27/17 09:00 03/30/17 08:17 (Vitamin B1) 1 mg DAILY PO 03/27/17 09:00 03/30/17 08:16 (Tylenol) 650 mg Q6HR PRN PO 03/27/17 16:30 03/30/17 03:31 Clonidine 0.1 mg 0.1 mg Q6H PRN PO 03/27/17 17:00 03/31/17 04:47 (Flagyl 500 Mg Inj) 100 ml @ 100 mls/hr Q6H IV 03/28/17 17:00 03/31/17 04:29 (Tums Chew) 500 mg BID PRN CHEW 03/28/17 17:00 03/30/17 20:17 (Mag-Ox) 800 mg BID PO 03/28/17 21:00 03/30/17 20:03 (Heparin Inj) 5,000 units Q8HR SQ 03/30/17 06:00 03/31/17 04:30 (Dilaudid Pf Inj) 2 mg Q4H PRN IV PUSH 03/29/17 13:00 03/30/17 03:22 (Cookson 7.5-325 Mg) 1 tab Q4H PRN PO 03/29/17 13:00 03/30/17 13:41 ([place]son 7.5-325 Mg) 2 tab Q6H PRN PO 03/29/17 13:00 03/31/17 04:47 (Lopressor) 100 mg BID PO 03/29/17 21:00 03/30/17 20:03 (Mysoline) 50 mg BID PO 03/29/17 21:00 03/30/17 20:04 Tacrolimus 4 mg 4 mg Q12H PO 03/29/17 21:00 03/30/17 20:05 (Cipro 400 Mg Premix) 200 ml @ 200 mls/hr Q12H IV 03/30/17 21:00 03/30/17 19:58 (Lasix Inj) 20 mg DAILY IV PUSH 03/30/17 11:30 03/30/17 11:38 (Levemir Inj) 28 units BID SQ 03/30/17 21:00 03/30/17 20:05 (Protonix Inj) 40 mg DAILY IV PUSH 03/31/17 09:00 Family History reviewed. Social History denies alcohol, smoking or illicit drugs. Patient lives by himself. His daughter in law (son is ) lives within 2 miles of his home and is very involved in his care. Physical Exam Vital Signs Vital Signs Date Time Temp Pulse Resp B/P Pulse Ox O2 Delivery O2 Flow Rate FiO2 03/30/17 16:00 97.8 67 18 194/84 94 03/30/17 15:28 97 Nasal Cannula 2.00 03/30/17 12:00 96.7 67 17 173/73 93 03/30/17 08:00 97.7 69 17 143/65 92 03/30/17 04:59 97.2 03/30/17 04:04 95 Nasal Cannula 4.00 03/30/17 04:00 101.2 80 22 129/53 92 03/30/17 03:55 95 4.00 03/30/17 00:00 101.5 73 20 140/65 92 03/29/17 20:00 102.2 77 22 148/65 93 03/29/17 17:56 74 163/78 Physical Exam GENERAL: This is a well-nourished, well-developed patient, in no apparent distress. SKIN: No rashes, ecchymoses or lesions. Cool and dry. HEAD: Atraumatic. Normocephalic. No temporal or scalp tenderness. EYES: Pupils equal round and reactive. Extraocular motions intact. No scleral icterus. No injection or drainage. ENT: Nose without bleeding, purulent drainage or septal hematoma. Throat without erythema, tonsillar hypertrophy or exudate. Uvula midline. Airway patent. NECK: Trachea midline. Supple, nontender, no meningeal signs. CARDIOVASCULAR: RRR RESPIRATORY: Clear to auscultation. Breath sounds equal bilaterally. GASTROINTESTINAL: Abdomen soft, non-tender, nondistended. Drain in place: sero- sanguinous drainage. MUSCULOSKELETAL: LE no pedal edema. LUE with linear scar from derm surgery. Mild erythema and induration. No obvious abscess. NEUROLOGICAL: Awake and alert. Grossly non focal Psych: cooperative IV line sites with no e.o infection. Laboratory Laboratory Tests Test 03/30/17 03/30/17 06:33 06:57 White Blood Count 10.4 Red Blood Count 3.63 Hemoglobin 11.2 Hematocrit 33.2 Mean Corpuscular Volume 91.2 Mean Corpuscular Hemoglobin 30.7 Mean Corpuscular Hemoglobin 33.7 Concent Red Cell Distribution Width 13.6 Platelet Count 151 Mean Platelet Volume 8.9 Neutrophils (%) (Auto) 88.2 Lymphocytes (%) (Auto) 4.1 Monocytes (%) (Auto) 7.3 Eosinophils (%) (Auto) 0.0 Basophils (%) (Auto) 0.4 Neutrophils # (Auto) 9.2 Lymphocytes # (Auto) 0.4 Monocytes # (Auto) 0.8 Eosinophils # (Auto) 0.0 Basophils # (Auto) 0.0 CBC Comment DIFF FINAL Differential Comment Sodium Level 140 Potassium Level 5.3 Chloride Level 110 Carbon Dioxide Level 23.0 Anion Gap 7 Blood Urea Nitrogen 27 Creatinine 2.09 Estimat Glomerular Filtration 31 Rate Random Glucose 259 Calcium Level 8.1 B-Type Natriuretic Peptide 206 Lactic Acid Level 1.1 Date/Time Procedure Status Source Growth 03/30/17 06:57 Aerobic Blood Culture Received Blood Peripheral Pending 03/30/17 06:57 Anaerobic Blood Culture Received Blood Peripheral Pending 03/26/17 21:35 Urine Culture - Final Complete Urine Catheterized Urine NO GROWTH IN 48 HOURS. 03/26/17 20:30 Influenza Types A,B Antigen ([place]) - Final Complete Nasal Washing NEGATIVE FOR FLU A AND B ANTIGEN.... 03/26/17 20:30 Gram Stain - Final Complete Wound Arm 03/26/17 20:30 Wound Culture - Final Complete S. Aureus Mrsa 03/26/17 20:10 Aerobic Blood Culture - Preliminary Resulted Blood Peripheral NO GROWTH IN 4 DAYS 03/26/17 20:10 Anaerobic Blood Culture - Preliminary Resulted Blood Peripheral NO GROWTH IN 4 DAYS Result Diagram: 03/30/17 0633 03/30/17 0633 Imaging Last Impressions Upper Extremity Ultrasound 03/30/17 0000 Signed Impressions: Service Date/Time: Thursday, March 30, 2017 21:32 - CONCLUSION: 1. Negative for deep venous thrombosis. AV fistula as above. Horace Garcia MD Chest X-Ray 03/30/17 0000 Signed Impressions: Service Date/Time: Thursday, March 30, 2017 05:13 - CONCLUSION: 1. Cardiomegaly with interstitial edema. Delvin Mackenzie MD Abdomen/Pelvis CT 03/28/17 1527 Signed Impressions: Service Date/Time: Tuesday, March 28, 2017 17:06 - CONCLUSION: Appendicitis Ramakrishna Holloway MD Assessment and Plan Assessment and Plan SIRS: likely post operative (gangrenous appendicitis surgery). Currently hemodynamically stable. Gangrenous appendicitis without perforation POD 1. Left UE ? cellulitis at site of skin cancer surgery. s/p renal transplant. Has AV fistula not on HD. Immunecompromised Recs Continue Cipro IV Continue Flagyl IV Follow clinically Doppler LUE to r/o abscess per family request. Follow cultures Nunu Miles: likely post op. Will follow clinically and reassess. nunu patient and daughter in law in room Jenn Suarez RN, MD March 30, 2017 17:06
[2017-03-30] MEDS ORDERED: PANTOPRAZOLE SODIUM 40 MG VIAL IV PUSH ONE (19:00)
[2017-03-30] MEDS: DOXAZOSIN MESYLATE 4 MG TAB PO SCH (20:02)
[2017-03-30] MEDS: ATORVASTATIN 40 MG TAB PO SCH (20:03)
--- NOTE | 2017-03-30 22:22 | RADRPT ---
EXAM DATE/TIME: 03/30/2017 21:32 [facility] COMPARISON: No previous studies available for comparison. INDICATIONS : Left arm swelling. MEDICAL HISTORY : Myocardial infarction. Hypertension. Thyroid disease. Hearing loss. Anticoagulant therapy, Aspirin. Renal failure. Duodenal ulcer. Enlarged prostate. Renal calculi. Arthritis. Diabetes. Skin cancer. SURGICAL HISTORY : Coronary artery stent. Appendectomy. Left AV shunt. Right renal transplant. Lithotripsy. Cervical s urgery. Bilateral cataract removal. ENCOUNTER: Initial ACUITY: 2 weeks PAIN SCORE: 0/10 LOCATION: Left arm. FINDINGS: There is no evidence for deep venous thrombosis. There is an AV fistula located just proximal to the antecubital area extending from brachial artery to cephalic vein. AV fistula is dilated up to around 2.4 cm in the midportion and 2.9 cm distally. Proximal veins turbulent flow from fistula. Fistula is reportedly not currently being used. CONCLUSION: 1. Negative for deep venous thrombosis. AV fistula as above. Horace Garcia MD on March 30, 2017 at 22:17 Board Certified Radiologist. This report was verified electronically.
--- NOTE | 2017-03-30 22:24 | RADRPT ---
EXAM DATE/TIME: 03/30/2017 21:48 [facility] COMPARISON: No previous studies available for comparison. INDICATIONS : Left arm swelling. MEDICAL HISTORY : Myocardial infarction. Hypertension. Thyroid disease. Hearing loss. Anticoagulant therapy, Aspirin. Renal failure. Duodenal ulcer. Enlarged prostate. Renal calculi. Arthritis. Diabetes. Skin cancer. SURGICAL HISTORY : Coronary artery stent. Left AV shunt. Right renal transplant. Lithotripsy. Cervical surgery. Bila teral cataract removal. ENCOUNTER: Initial ACUITY: 2 weeks PAIN SCORE: 0/10 LOCATION: Left arm. AREA EVALUATED: AV fistula site and lateral mid humerus. FINDINGS: No mass or abnormal fluid collection is seen. The AV fistula site is noted. CONCLUSION: No mass or abnormal fluid collections. AV fistula. See venous Doppler report. Horace Garcia MD on March 30, 2017 at 22:20 Board Certified Radiologist. This report was verified electronically.
[2017-03-31] VITALS (7 sets, daily range): BP systolic 132–195; BP diastolic 60–83; PULSE 62–82; RESP 16–20; TEMP 98–100.2; O2SAT 92–95
[2017-03-31] MEDS: metroNIDAZOLE 500 MG INJ 100 ML IV SCH ×4 (04:29→23:33)
[2017-03-31] MEDS: LEVOTHYROXINE SODIUM 75 MCG TAB PO SCH (04:29)
[2017-03-31] MEDS: INSULIN ASPART SUPPLEMENTAL SCALE SQ SCH ×4 (04:30→20:25)
[2017-03-31] MEDS: HEPARIN SODIUM - SQ 10,000 UNITS/ML VIAL SQ SCH ×3 (04:30→20:15)
[2017-03-31] MEDS: ACETAMINOPHEN/HYDROcodone 325 MG/7.5 MG TAB PO PRN ×2 (04:47→20:13)
[2017-03-31] MEDS: cloNIDine HCL 0.1 MG TAB PO PRN ×2 (04:47→23:48)
[2017-03-31] MEDS: FUROSEMIDE 20 MG/2 ML VIAL IV PUSH SCH (09:12)
[2017-03-31] MEDS: PANTOPRAZOLE SODIUM 40 MG VIAL IV PUSH SCH (09:12)
[2017-03-31] MEDS: INSULIN DETEMIR 100 UNITS/ML VIAL SQ SCH ×2 (09:15→20:14)
[2017-03-31] MEDS: CHOLECALCIFEROL (VIT D3) 1000 UNIT TAB PO SCH (09:16)
[2017-03-31] MEDS: LACTOBACILLUS ACIDOPHILUS TAB PO SCH ×3 (09:16→17:36)
[2017-03-31] MEDS: METOPROLOL TARTRATE 100 MG TAB PO SCH ×2 (09:16→20:14)
[2017-03-31] MEDS: PRIMIDONE 50 MG TAB PO SCH ×2 (09:16→20:17)
[2017-03-31] MEDS: GABAPENTIN 300 MG CAP PO SCH ×3 (09:16→17:36)
[2017-03-31] MEDS: TACROLIMUS 1 MG CAP PO SCH ×2 (09:17→20:17)
[2017-03-31] MEDS: predniSONE 5 MG TAB PO SCH (09:17)
[2017-03-31] MEDS: CYANOCOBALAMIN 1,000 MCG TAB PO SCH (09:17)
[2017-03-31] MEDS: MAGNESIUM OXIDE 400 MG TAB PO SCH ×2 (09:17→20:15)
[2017-03-31] MEDS: THIAMINE HCL 100 MG TAB PO SCH (09:17)
[2017-03-31] MEDS: FOLIC ACID 1 MG TAB PO SCH (09:17)
[2017-03-31] MEDS: hydrALAZINE HCL 100 MG TAB PO SCH ×3 (09:20→17:36)
[2017-03-31] MEDS: HYDROmorphone HCL PF 2 MG/ML VIAL IV PUSH PRN (09:42)
[2017-03-31] MEDS: SODIUM CHLORIDE 0.9% FLUSH 10 ML FLUSH IV FLUSH SCH ×2 (09:44→20:26)
[2017-03-31] MEDS: CIPROFLOXACIN 400 MG PREMIX 200 ML IV SCH ×2 (09:47→20:17)
[2017-03-31] MEDS: DOCUSATE SODIUM 100 MG CAP PO SCH ×2 (09:49→20:15)
--- NOTE | 2017-03-31 11:02 | HHI.PR ---
Subjective Remarks minimal abdominal discomfort, + flatus no nausea or vomiting no arm pain Objective Vitals Vital Signs Date Time Temp Pulse Resp B/P Pulse Ox O2 Delivery O2 Flow Rate FiO2 03/31/17 08:00 98.0 63 20 185/79 92 03/31/17 04:00 100.2 70 20 184/79 93 03/31/17 00:00 99.1 62 20 157/71 95 03/30/17 20:00 99.5 73 20 190/85 95 03/30/17 16:00 97.8 67 18 194/84 94 03/30/17 15:28 97 Nasal Cannula 2.00 03/30/17 12:00 96.7 67 17 173/73 93 I/O 03/30/17 03/30/17 03/30/17 03/31/17 03/31/17 03/31/17 06:59 14:59 22:59 06:59 14:59 22:59 Intake Total 566 ml 820 ml 1102 ml 391 ml Output Total 1580 ml 850 ml 415 ml Balance 566 ml -760 ml 252 ml -24 ml Intake Oral 580 ml 240 ml 120 ml IV Total 566 ml 240 ml 862 ml 271 ml Output Urine Total 1550 ml 825 ml 375 ml Drainage Total 30 ml 25 ml 40 ml # Bowel Movements 0 0 0 Result Diagram: 03/30/17 0633 03/30/17 0633 Imaging Last Impressions Upper Extremity Ultrasound 03/30/17 0000 Signed Impressions: Service Date/Time: Thursday, March 30, 2017 21:32 - CONCLUSION: 1. Negative for deep venous thrombosis. AV fistula as above. Horace Garcia MD Chest X-Ray 03/30/17 0000 Signed Impressions: Service Date/Time: Thursday, March 30, 2017 05:13 - CONCLUSION: 1. Cardiomegaly with interstitial edema. Delvin Mackenzie MD Abdomen/Pelvis CT 03/28/17 1527 Signed Impressions: Service Date/Time: Tuesday, March 28, 2017 17:06 - CONCLUSION: Appendicitis Ramakrishna Holloway MD Objective Remarks anicteric - no rales or wheezes regular rhythm abdomen- soft,, slightly distended , + bowel sounds, no guarding, extremities- LUE-- deltoid area- mild erythema no lower extremities edema Procedures 03/29- explor lap- grangrenous appendicitis Date of Insertion: March 27, 2017 Date of Removal: March 31, 2017 A/P Assessment and Plan Mr. Gaming is a 76 y/o male with a history of end-stage renal disease status post renal transplant in 2012 is admitted with sepsis secondary to left arm cellulitis s/p basal cell CA removal. Sepsis -secondary to acute gangrenous appendicitis S/P appendectomy 5/6 Leukocytosis with neutrophilia, fever, lactic acidosis - down - t down -on Cipro + Flagyl- for appendicitis GS ff -ID ff along with us -patient is a renal [place] patient- on Prednisone and Tacrolimus Left deltoid scab wound -- decrease erythema- US and doppler negative for DVT and abscess Acute KI on chronic renal failure in a renal transplant patient - BUN 35, creatinine 2.55, estimated GFR 25 - Baseline: creatinine trending down - Avoid nephrotoxins . continue on Prednisone - Dr. Yoo ff Acute Fluid overload-=-lungs better - give another Lasix 20 mg daily Diabetes mellitus type 2 uncontrolled and infection - Accu-Cheks before meals and at bedtime with low-dose NovoLog sliding scale coverage - Hypoglycemia treatment protocol ordered - Monitor trends and blood glucose readings and adjust treatment as needed - increase to 28 units bid Hypertensive urgency - ff BPs- better readings - Hydralazine 10 mg IV push every 30 minutes as needed for blood pressure greater than 180/90 - Restart home antihypertensive medications - BB, CCB, Hydralazine - Monitor trends in blood pressure readings and adjust treatment as needed - clonidine prn DVT prophylaxis - Heparin 5000 units subq q8h encourage increase activity- stated he was up JOSE MANUEL heart later today Asad Rubio MD March 31, 2017 11:02
[2017-03-31 12:23] LABS: BICARBONATE 23.4 MEQ/L (21.0-32.0); POTASSIUM 4.1 MEQ/L (3.5-5.1)
--- NOTE | 2017-03-31 13:21 | HHI.PR ---
Subjective Subjective Notes Ordering breakfast Requesting stool softener Objective Vitals/I&O Vital Signs Date Time Temp Pulse Resp B/P Pulse Ox O2 Delivery O2 Flow Rate FiO2 03/31/17 12:00 99.0 74 18 132/60 94 03/30/17 15:28 Nasal Cannula 2.00 03/29/17 11:06 100 Labs Laboratory Tests Test 03/31/17 11:15 Sodium Level 136 Potassium Level 4.1 Chloride Level 106 Carbon Dioxide Level 23.4 Anion Gap 7 Blood Urea Nitrogen 28 Creatinine 1.78 Estimat Glomerular Filtration 37 Rate Random Glucose 232 Calcium Level 8.2 Date/Time Procedure Status Source Growth 03/30/17 06:57 Aerobic Blood Culture - Preliminary Resulted Blood Peripheral NO GROWTH IN 1 DAY 03/30/17 06:57 Anaerobic Blood Culture - Preliminary Resulted Blood Peripheral NO GROWTH IN 1 DAY 03/26/17 21:35 Urine Culture - Final Complete Urine Catheterized Urine NO GROWTH IN 48 HOURS. 03/26/17 20:30 Influenza Types A,B Antigen ([place]) - Final Complete Nasal Washing NEGATIVE FOR FLU A AND B ANTIGEN.... 03/26/17 20:30 Gram Stain - Final Complete Wound Arm 03/26/17 20:30 Wound Culture - Final Complete S. Aureus Mrsa 03/26/17 20:10 Aerobic Blood Culture - Final Complete Blood Peripheral NO GROWTH IN 5 DAYS 03/26/17 20:10 Anaerobic Blood Culture - Final Complete Blood Peripheral NO GROWTH IN 5 DAYS Cardiovascular: Regular Lungs: Clear Abdomen: Other (lap sites c/d/i; TIFFANY with SS mildly cloudy drainage; ), Post-op tenderness Narrative Exam LUE---- mild erythema on upper portion of arm ---without pain or appreciable fluid collection A/P Assessment and Plan 76 year old male POD2 lap appy----gangrenous; LUE cellulitis -Renal diet -Continue antibiotics---Cipro/Flagyl -Low grade temp overnight 100.4 -WBC 10.4 -OOB and mobilize -ID following -Add Colace per patient's request Attending Note - Dr. Bianchi Abdomen benign TIFFANY output cloudy, serosanguinous Passing flatus, tolerating diet without nausea Continue antibiotics x 10-14 days The exam, history, and the medical decision-making described in the above note were completed with the assistance of the mid-level provider. I reviewed and agree with the findings presented. I attest that I had a [id number] encounter with the patient on the same day, and personally performed and documented my assessment and findings in the medical record. Sveta Smith March 31, 2017 13:21 Raffi Bianchi MD March 31, 2017 17:40
--- NOTE | 2017-03-31 17:41 | HHI.IDPN ---
Subjective Subjective Remarks Mr. Gaming is a 76 y/o CM with h/o ESRD status post renal transplant in 2013 on immune suppressants, diabetes mellitus, hypertension, gastroesophageal reflux disease, coronary artery disease, and hyperlipidemia who presented to the emergency room on 03/26/2017 for evaluation of generalized weakness. He was noted to have a temperature of 103 in the ER. Patient reports feeling of unwellness for approx week prior to admission. He reports fever and chills for 2 days duration with max temp over 103. He denies any recent cough, shortness of breath, chest pain, diarrhea, nausea, vomiting, or dysuria. He reports some vague abdominal pain that occurs only when he has chills. He was admitted to hospital and underwent Laparoscopic appendectomy by for a gangrenous appendicitis without perforation. He is POD1 today and Halicat was called as patient had high grade fever and appeared short of breath and anxious. On further questioning, he reports he had sutures removed for skin cancer from left arm procedure done a couple of weeks ago - suture site examined with minimal redness and no exudate and no swelling. Two weeks ago, he was on antibiotics post-procedure and antibiotics were restarted a few days ago after sutures were removed. ID was consulted for evaluation and Mment of possible sepsis given the Halicat. At the time of my evaluation, patient is sitting in a chair on 7th floor. He appears comfortable and reading an e-book. He complains of heartburn and chest discomfort and had just had Ceci zafar and reports feeling better. He denies any abdominal pain or pain at LUE surgery site. Overnight events reviewed. No fever No rash No diarrhea TIFFANY drain in place. Feels better today Low grade temps overnight. Antibiotics Cipro IV Flagyl IV Lines Line sites with no e.o infection. Past Medical History reviewed Allergies: Coded Allergies: Amoxicillin (Unverified Allergy, Severe, HIVES, 03/26/17) Penicillin (Verified Allergy, Severe, Anaphylaxis, 03/26/17) PT STATES HE IS ALLERGIC TO AMOXICILLAN AND GETS HIVES FROM IT. Contrast Media (Verified Adverse Reaction, Severe, Urinary Freq (Inc/Dec) , 03/26/17) PT HAS RENAL TRANSPLANT *MDRO Multi-Drug Resistant Organism (Verified Adverse Reaction, Unknown, ) MRSA (arm wound) - 03/26/2017 Objective . Vital Signs Date Time Temp Pulse Resp B/P Pulse Ox O2 Delivery O2 Flow Rate FiO2 03/31/17 12:00 99.0 74 18 132/60 94 03/31/17 08:00 98.0 63 20 185/79 92 03/31/17 04:00 100.2 70 20 184/79 93 03/31/17 00:00 99.1 62 20 157/71 95 03/30/17 20:00 99.5 73 20 190/85 95 03/30/17 03/30/17 03/31/17 15:00 23:00 07:00 Intake Total 820 ml 1102 ml 391 ml Output Total 1580 ml 850 ml 415 ml Balance -760 ml 252 ml -24 ml Intake Oral 580 ml 240 ml 120 ml IV Total 240 ml 862 ml 271 ml Output Urine Total 1550 ml 825 ml 375 ml Drainage Total 30 ml 25 ml 40 ml # Bowel Movements 0 0 0 . Laboratory Tests Test 03/30/17 06:33 White Blood Count 10.4 TH/MM3 Red Blood Count 3.63 MIL/MM3 Hemoglobin 11.2 GM/DL Hematocrit 33.2 % Mean Corpuscular Volume 91.2 FL Mean Corpuscular Hemoglobin 30.7 PG Mean Corpuscular Hemoglobin 33.7 % Concent Red Cell Distribution Width 13.6 % Platelet Count 151 TH/MM3 Mean Platelet Volume 8.9 FL Neutrophils (%) (Auto) 88.2 % Lymphocytes (%) (Auto) 4.1 % Monocytes (%) (Auto) 7.3 % Eosinophils (%) (Auto) 0.0 % Basophils (%) (Auto) 0.4 % Neutrophils # (Auto) 9.2 TH/MM3 Lymphocytes # (Auto) 0.4 TH/MM3 Monocytes # (Auto) 0.8 TH/MM3 Eosinophils # (Auto) 0.0 TH/MM3 Basophils # (Auto) 0.0 TH/MM3 CBC Comment DIFF FINAL Differential Comment Laboratory Tests Test 03/30/17 03/30/17 03/31/17 06:33 06:57 11:15 Sodium Level 140 MEQ/L 136 MEQ/L Potassium Level 5.3 MEQ/L 4.1 MEQ/L Chloride Level 110 MEQ/L 106 MEQ/L Carbon Dioxide Level 23.0 MEQ/L 23.4 MEQ/L Anion Gap 7 MEQ/L 7 MEQ/L Blood Urea Nitrogen 27 MG/DL 28 MG/DL Creatinine 2.09 MG/DL 1.78 MG/DL Estimat Glomerular Filtration 31 ML/MIN 37 ML/MIN Rate Random Glucose 259 MG/DL 232 MG/DL Calcium Level 8.1 MG/DL 8.2 MG/DL B-Type Natriuretic Peptide 206 PG/ML Lactic Acid Level 1.1 mmol/L Microbiology Date/Time Procedure Status Source Growth 03/30/17 06:33 Aerobic Blood Culture - Preliminary Resulted Blood Peripheral NO GROWTH IN 1 DAY 03/30/17 06:33 Anaerobic Blood Culture - Preliminary Resulted Blood Peripheral NO GROWTH IN 1 DAY 03/30/17 06:57 Aerobic Blood Culture - Preliminary Resulted Blood Peripheral NO GROWTH IN 1 DAY 03/30/17 06:57 Anaerobic Blood Culture - Preliminary Resulted Blood Peripheral NO GROWTH IN 1 DAY Imaging Last Impressions Upper Extremity Ultrasound 03/30/17 0000 Signed Impressions: Service Date/Time: Thursday, March 30, 2017 21:32 - CONCLUSION: 1. Negative for deep venous thrombosis. AV fistula as above. Horace Garcia MD Chest X-Ray 03/30/17 0000 Signed Impressions: Service Date/Time: Thursday, March 30, 2017 05:13 - CONCLUSION: 1. Cardiomegaly with interstitial edema. Delvin Mackenzie MD Abdomen/Pelvis CT 03/28/17 1527 Signed Impressions: Service Date/Time: Tuesday, March 28, 2017 17:06 - CONCLUSION: Appendicitis Ramakrishna Holloway MD Physical Exam GENERAL: This is a well-nourished, well-developed patient, in no apparent distress. SKIN: No rashes, ecchymoses or lesions. Cool and dry. HEAD: Atraumatic. Normocephalic. No temporal or scalp tenderness. EYES: Pupils equal round and reactive. Extraocular motions intact. No scleral icterus. No injection or drainage. ENT: Nose without bleeding, purulent drainage or septal hematoma. Throat without erythema, tonsillar hypertrophy or exudate. Uvula midline. Airway patent. NECK: Trachea midline. Supple, nontender, no meningeal signs. CARDIOVASCULAR: RRR RESPIRATORY: Clear to auscultation. Breath sounds equal bilaterally. GASTROINTESTINAL: Abdomen soft, non-tender, nondistended. Drain in place: sero- sanguinous drainage. MUSCULOSKELETAL: LE no pedal edema. LUE with linear scar from derm surgery. Mild erythema and induration. No obvious abscess. NEUROLOGICAL: Awake and alert. Grossly non focal Psych: cooperative IV line sites with no e.o infection. Assessment & Plan Remarks SIRS: likely post operative (gangrenous appendicitis surgery). Currently hemodynamically stable. Gangrenous appendicitis without perforation POD 1. Left UE ? cellulitis at site of skin cancer surgery. s/p renal transplant. Has AV fistula not on HD. Immune compromised Recs Continue Cipro IV Continue Flagyl IV Follow clinically Evelynw Dr.Lars Miles: likely post op. Will follow clinically and reassess. d.w patient dAgapitow RN evelynw : when pt ready for oral antibiotics may consider adding Doxy oral for MRSA hand infection if persistent issue (note: MRSA culture was Cipro resistant) Will follow prn. Jenn Rodriguez MD March 31, 2017 17:41
--- NOTE | 2017-03-31 18:12 | HHI.NPPN ---
Subjective History of Present Illness 76 year old with kidney transplant DM,skin cancer s/p excision cellulitis left arm MRSA Additional Remarks Patient is alert, no SOB, mild abd. discomfort, has fever last night, now afebrile. Review of Systems General Constitutional: Fatigue Gastrointestinal Gastrointestinal: Abdominal Pain Objective Data Data 03/30/17 03/31/17 19:00 07:00 Intake Total 820 ml 1493 ml Output Total 1580 ml 1265 ml Balance -760 ml 228 ml Intake Oral 580 ml 360 ml IV Total 240 ml 1133 ml Output Urine Total 1550 ml 1200 ml Drainage Total 30 ml 65 ml # Bowel Movements 0 0 Vital Signs Date Time Temp Pulse Resp B/P Pulse Ox O2 Delivery O2 Flow Rate FiO2 03/31/17 16:00 98.2 66 16 165/73 93 03/31/17 12:00 99.0 74 18 132/60 94 03/31/17 08:00 98.0 63 20 185/79 92 03/31/17 04:00 100.2 70 20 184/79 93 03/31/17 00:00 99.1 62 20 157/71 95 03/30/17 20:00 99.5 73 20 190/85 95 -: 03/30/17 0633 03/31/17 1115 Physical Exam General Appearance: No Acute Distress, Comfortable Neck Neck Exam: Neck Supple Pulmonary Resp Exam: Clear Bilaterally, Breath Sounds Equal Cardiology CV Exam: Regular, Normal Sinus Rhythm Gastrointestinal/Abdomen GI Exam: Soft, Bowel Sounds Present, Distended (with drain.) Integumentary Skin Exam: Lesion(s) Extremeties Extremities Exam: Trace Edema Neurologic Neuro Exam: Alert, Awake Assessment/Plan Problem List: (1) Kidney transplant status, cadaveric Plan: Patient is on Prograf 4 mg twice a day and prednisone 5 mg daily continue to monitor levels continue with hydration. Tacro level is 5.1 Creatinine declined 1.78 s/p Appendectomy Continue IVF and Cipro. (2) Acute on chronic renal insufficiency Plan: Improve with hydration (3) Sepsis Plan: Likely due to his recent procedure (4) Cellulitis Plan: On Cipro MRSA in wound contaminant ? (5) IDDM (insulin dependent diabetes mellitus) Plan: Blood glucoses elevated (6) Hypertension Plan: Still elevated, on Metoprolol and Amlodipine, and clonidine PRN. Problem Qualifiers (1) Sepsis: Qualified Code: A41.9 - Sepsis, due to unspecified organism (2) Cellulitis: Qualified Code: L03.114 - Cellulitis of left upper extremity (3) Hypertension: Qualified Code: I10 - Essential hypertension Surekha Yoo MD March 31, 2017 18:11
[2017-03-31] MEDS: ATORVASTATIN 40 MG TAB PO SCH (20:15)
[2017-03-31] MEDS: DOXAZOSIN MESYLATE 4 MG TAB PO SCH (20:16)
[2017-04-01] VITALS (8 sets, daily range): BP systolic 154–199; BP diastolic 70–93; PULSE 55–71; RESP 18–22; TEMP 96.9–98.8; O2SAT 91–98
[2017-04-01] MEDS: HEPARIN SODIUM - SQ 10,000 UNITS/ML VIAL SQ SCH ×3 (04:57→20:40)
[2017-04-01] MEDS: LEVOTHYROXINE SODIUM 75 MCG TAB PO SCH (04:57)
[2017-04-01] MEDS: metroNIDAZOLE 500 MG INJ 100 ML IV SCH ×4 (04:58→22:27)
[2017-04-01] MEDS: INSULIN ASPART SUPPLEMENTAL SCALE SQ SCH ×4 (06:28→22:26)
[2017-04-01] MEDS: DOCUSATE SODIUM 100 MG CAP PO SCH ×2 (07:45→20:44)
[2017-04-01] MEDS: MAGNESIUM OXIDE 400 MG TAB PO SCH ×2 (07:52→20:34)
[2017-04-01] MEDS: CHOLECALCIFEROL (VIT D3) 1000 UNIT TAB PO SCH (07:53)
[2017-04-01] MEDS: hydrALAZINE HCL 100 MG TAB PO SCH ×3 (07:53→16:11)
[2017-04-01] MEDS: THIAMINE HCL 100 MG TAB PO SCH (07:53)
[2017-04-01] MEDS: TACROLIMUS 1 MG CAP PO SCH ×2 (07:53→20:34)
[2017-04-01] MEDS: FOLIC ACID 1 MG TAB PO SCH (07:54)
[2017-04-01] MEDS: LACTOBACILLUS ACIDOPHILUS TAB PO SCH ×3 (07:54→16:11)
[2017-04-01] MEDS: GABAPENTIN 300 MG CAP PO SCH ×3 (07:54→16:11)
[2017-04-01] MEDS: PRIMIDONE 50 MG TAB PO SCH ×2 (07:54→20:34)
[2017-04-01] MEDS: predniSONE 5 MG TAB PO SCH (07:54)
[2017-04-01] MEDS: METOPROLOL TARTRATE 100 MG TAB PO SCH ×2 (07:54→20:35)
[2017-04-01] MEDS: CYANOCOBALAMIN 1,000 MCG TAB PO SCH (07:54)
[2017-04-01] MEDS: PANTOPRAZOLE SODIUM 40 MG VIAL IV PUSH SCH (07:56)
[2017-04-01] MEDS: FUROSEMIDE 20 MG/2 ML VIAL IV PUSH SCH (07:57)
[2017-04-01] MEDS: CIPROFLOXACIN 400 MG PREMIX 200 ML IV SCH ×2 (07:59→20:42)
[2017-04-01] MEDS: SODIUM CHLOR 0.9% 1000 ML INJ 1,000 ML IV SCH ×2 (08:04→10:50)
[2017-04-01] MEDS: INSULIN DETEMIR 100 UNITS/ML VIAL SQ SCH ×2 (08:05→22:27)
[2017-04-01] MEDS: SODIUM CHLORIDE 0.9% FLUSH 10 ML FLUSH IV FLUSH SCH ×2 (08:05→20:44)
--- NOTE | 2017-04-01 10:12 | HHI.PR ---
Subjective Remarks feels great, tolerating po well, no abdominal pain, nausea or vomiting had a good BM voiding very well- Objective Vitals Vital Signs Date Time Temp Pulse Resp B/P Pulse Ox O2 Delivery O2 Flow Rate FiO2 04/01/17 08:00 96.9 60 18 199/93 94 04/01/17 04:00 98.8 56 18 169/74 92 04/01/17 00:50 97.8 59 22 154/70 98 04/01/17 00:00 98.3 63 20 175/74 93 03/31/17 21:13 18 03/31/17 20:15 82 03/31/17 20:00 98.4 70 20 195/83 94 03/31/17 16:00 98.2 66 16 165/73 93 03/31/17 12:00 99.0 74 18 132/60 94 I/O 03/31/17 03/31/17 03/31/17 04/01/17 04/01/17 04/01/17 07:00 15:00 23:00 07:00 15:00 23:00 Intake Total 391 ml 1148 ml 620 ml 659 ml Output Total 415 ml 1280 ml 600 ml 250 ml 65 ml Balance -24 ml -132 ml 20 ml 409 ml -65 ml Intake Oral 120 ml 600 ml 620 ml 120 ml IV Total 271 ml 548 ml 539 ml Output Urine Total 375 ml 1200 ml 600 ml 250 ml Drainage Total 40 ml 80 ml 65 ml # Bowel Movements 0 0 0 0 Result Diagram: 03/30/17 0633 03/31/17 1115 Imaging Last Impressions Upper Extremity Ultrasound 03/30/17 0000 Signed Impressions: Service Date/Time: Thursday, March 30, 2017 21:32 - CONCLUSION: 1. Negative for deep venous thrombosis. AV fistula as above. Horace Garcia MD Chest X-Ray 03/30/17 0000 Signed Impressions: Service Date/Time: Thursday, March 30, 2017 05:13 - CONCLUSION: 1. Cardiomegaly with interstitial edema. Delvin Mackenzie MD Abdomen/Pelvis CT 03/28/17 1527 Signed Impressions: Service Date/Time: Tuesday, March 28, 2017 17:06 - CONCLUSION: Appendicitis Ramakrishna Holloway MD Objective Remarks anicteric - no rales or wheezes regular rhythm abdomen- soft,,+ bowel sounds, no guarding, TIFFANY drain in place extremities- LUE-- deltoid area- superficial wound- edges, clean minimal blood on dressing no lower extremities edema Procedures 5/6- explor lap- grangrenous appendicitis Date of Insertion: March 27, 2017 Date of Removal: March 31, 2017 A/P Assessment and Plan Mr. Gaming is a 76 y/o male with a history of end-stage renal disease status post renal transplant in 2012 is admitted with sepsis secondary to left arm cellulitis s/p basal cell CA removal. Sepsis -secondary to acute gangrenous appendicitis S/P appendectomy / Leukocytosis with neutrophilia, fever, lactic acidosis - down - t down -on Cipro + Flagyl- for appendicitis GS ff -ID ff along with us - advance diet per GS Left deltoid wound improved clinically- growing MRSA ? contaminant - US and doppler negative for DVT and abscess - d/w Dr. Rodriguez-04/01- will not need another antibiotic (DC Doxycycline initially ordered earlier) - continue to monitor area closely Acute KI on chronic renal failure in a renal transplant patient - BUN 35, creatinine 2.55, estimated GFR 25 - Baseline: creatinine trending down, non oliguric - Avoid nephrotoxins . continue on Prednisone, TAcrolimus - Dr. Yoo ff Acute Fluid overload-=-lungs better- resolved -change to po Lasix 40 mg daily Diabetes mellitus type 2 uncontrolled and infection - Accu-Cheks before meals and at bedtime with low-dose NovoLog sliding scale coverage - Hypoglycemia treatment protocol ordered - Monitor trends and blood glucose readings and adjust treatment as needed - increase to 28 units bid- better readings Hypertensive urgency - ff BPs- better readings - Hydralazine 10 mg IV push every 30 minutes as needed for blood pressure greater than 180/90 - Restart home antihypertensive medications - BB, CCB, Hydralazine, Cardura -change to po Lasix 40 mg daily - Monitor trends in blood pressure readings and adjust treatment as needed - clonidine prn DVT prophylaxis - Heparin 5000 units subq q8h encourage increase activity- stated he is up and ambulating PT daily - deconditioning Asad Rubio MD April 01, 2017 10:12
[2017-04-01] MEDS ORDERED: DOXYCYCLINE HYCLATE 100 MG CAP PO SCH (11:00)
[2017-04-01] MEDS: ACETAMINOPHEN/HYDROcodone 325 MG/7.5 MG TAB PO PRN ×2 (11:27→20:40)
--- NOTE | 2017-04-01 13:30 | HHI.PR ---
Subjective Subjective Notes Up to chair No complains +BM Objective Vitals/I&O Vital Signs Date Time Temp Pulse Resp B/P Pulse Ox O2 Delivery O2 Flow Rate FiO2 04/01/17 12:00 97.3 64 19 173/73 93 03/30/17 15:28 Nasal Cannula 2.00 03/29/17 11:06 100 Labs Date/Time Procedure Status Source Growth 03/30/17 06:57 Aerobic Blood Culture - Preliminary Resulted Blood Peripheral NO GROWTH IN 2 DAYS 03/30/17 06:57 Anaerobic Blood Culture - Preliminary Resulted Blood Peripheral NO GROWTH IN 2 DAYS Cardiovascular: Regular Lungs: Clear Abdomen: Other (lap sites c/d/i; TIFFANY in place ) Narrative Exam LUE---- mild erythema on upper portion of arm ---without pain or appreciable fluid collection A/P Assessment and Plan 76 year old male POD3 lap appy----gangrenous; LUE cellulitis -Renal diet -Transition to PO Cipro/Flagyl---avoid Tums, milk and milk products -Afebrile overnight -OOB and mobilize -ID following -CM consult for HHC Attending Note - Dr. Bianchi Abdomen benign Steristrips intact without erythema Will discharge home with drain in place Antibiotics for 14 days total Will see in office in one week for drain removal Ok for discharge home in next day or so The exam, history, and the medical decision-making described in the above note were completed with the assistance of the mid-level provider. I reviewed and agree with the findings presented. I attest that I had a [id number] encounter with the patient on the same day, and personally performed and documented my assessment and findings in the medical record. Sveta Smith April 01, 2017 13:30 Raffi Bianchi MD April 01, 2017 17:14
--- NOTE | 2017-04-01 13:32 | HHI.FF ---
Face to Face Verification Diagnosis: (1) Acute appendicitis Physical Therapy Order: Evaluate and Treat, Improve ambulation, Strength and gait training Instructions: Avoid heavy pulling pushing or lifting Home Health Nursing Order: Wound care and dressing changes Instructions: ITFFANY drain care and monitoring I have seen patient Omega Gaming on 04/01/17. My clinical findings support the need for the requested home health care services because: Limited ability to care for self High risk of falls I certify that my clinical findings support that this patient is homebound because: Post-op weakness Sveta Smith HOSE SEAMER April 01, 2017 13:32
--- NOTE | 2017-04-01 14:32 | HHI.PR ---
Addendum to Inpatient Note Addendum Reason: Additional Documentation Additional Information d/w Fouzia Smith: ok to switch to oral cipro and flagyl to see if pt tolerates. If no fever overnight and repeat bld cx negative at 72 hours ok to DC from ID standpoint on above oral regimen. I will sign off please call back if any change in clinical condition or questions. Jenn Rodriguez MD April 01, 2017 14:32
--- NOTE | 2017-04-01 14:40 | HHI.NPPN ---
Subjective History of Present Illness 76 year old with kidney transplant DM,skin cancer s/p excision cellulitis left arm MRSA Additional Remarks Patient is alert, no SOB, mild abd. discomfort, has fever last night, now afebrile. Review of Systems General Constitutional: Fatigue Gastrointestinal Gastrointestinal: Abdominal Pain Objective Data Data 03/31/17 04/01/17 19:00 07:00 Intake Total 1148 ml 1279 ml Output Total 1680 ml 450 ml Balance -532 ml 829 ml Intake Oral 600 ml 740 ml IV Total 548 ml 539 ml Output Urine Total 1600 ml 450 ml Drainage Total 80 ml # Bowel Movements 0 0 Vital Signs Date Time Temp Pulse Resp B/P Pulse Ox O2 Delivery O2 Flow Rate FiO2 04/01/17 12:00 97.3 64 19 173/73 93 04/01/17 08:00 96.9 60 18 199/93 94 04/01/17 04:00 98.8 56 18 169/74 92 04/01/17 00:50 97.8 59 22 154/70 98 04/01/17 00:00 98.3 63 20 175/74 93 03/31/17 21:13 18 03/31/17 20:15 82 03/31/17 20:00 98.4 70 20 195/83 94 03/31/17 16:00 98.2 66 16 165/73 93 -: 03/30/17 0633 03/31/17 1115 Physical Exam General Appearance: No Acute Distress, Comfortable Neck Neck Exam: Neck Supple Pulmonary Resp Exam: Clear Bilaterally, Breath Sounds Equal Cardiology CV Exam: Regular, Normal Sinus Rhythm Gastrointestinal/Abdomen GI Exam: Soft, Bowel Sounds Present, Distended (with drain.) Integumentary Skin Exam: Lesion(s) Extremeties Extremities Exam: Trace Edema Neurologic Neuro Exam: Alert, Awake Assessment/Plan Problem List: (1) Kidney transplant status, cadaveric Plan: Patient is on Prograf 4 mg twice a day and prednisone 5 mg daily continue to monitor levels continue with hydration. Tacro level is 5.1 Creatinine declined 1.78 s/p Appendectomy Continue IVF and Cipro. BP higher on BP medications follow this (2) Acute on chronic renal insufficiency Plan: Improve with hydration (3) Sepsis Plan: Likely due to his recent procedure (4) Cellulitis Plan: On Cipro MRSA in wound contaminant ? (5) IDDM (insulin dependent diabetes mellitus) Plan: Blood glucoses elevated (6) Hypertension Plan: Still elevated, on Metoprolol hydralazine, Doxazosin and Amlodipine, and clonidine PRN. Problem Qualifiers (1) Sepsis: Qualified Code: A41.9 - Sepsis, due to unspecified organism (2) Cellulitis: Qualified Code: L03.114 - Cellulitis of left upper extremity (3) Hypertension: Qualified Code: I10 - Essential hypertension Surekha Yoo MD April 01, 2017 14:40
[2017-04-01] MEDS: cloNIDine HCL 0.1 MG TAB PO PRN ×2 (16:11→23:11)
[2017-04-01] MEDS: ATORVASTATIN 40 MG TAB PO SCH (20:35)
[2017-04-01] MEDS: DOXAZOSIN MESYLATE 4 MG TAB PO SCH (20:39)
[2017-04-02] MEDS: HYDROmorphone HCL PF 2 MG/ML VIAL IV PUSH PRN (02:01)
[2017-04-02 04:00] VITALS: BP 178/76; PULSE 52; RESP 19; TEMP 97.3; O2SAT 92
[2017-04-02] MEDS: LEVOTHYROXINE SODIUM 75 MCG TAB PO SCH (05:38)
[2017-04-02] MEDS: metroNIDAZOLE 500 MG INJ 100 ML IV SCH ×3 (05:38→16:22)
[2017-04-02] MEDS: HEPARIN SODIUM - SQ 10,000 UNITS/ML VIAL SQ SCH ×2 (05:38→16:21)
[2017-04-02] MEDS: cloNIDine HCL 0.1 MG TAB PO PRN ×2 (05:38→12:50)
[2017-04-02] MEDS: INSULIN ASPART SUPPLEMENTAL SCALE SQ SCH ×3 (07:00→16:00)
[2017-04-02 07:30] LABS: BASOPHIL % 0.4 % (0.0-2.0); EOSINOPHIL # 0.2 TH/MM3 (0-0.4); EOSINOPHIL % 2.5 % (0.0-4.0); HEMO FLAGS DIFF FINAL; LYMPH % 7.8 % (9.0-44.0); LYMPHOCYTE # 0.6 TH/MM3 (1.0-4.8); MEAN CELL VOLUME 89.2 FL (80.0-100.0); MEAN CORPUSCULAR HEMOGLOBIN 29.8 PG (27.0-34.0); MEAN CORPUSCULAR HGB CONC 33.4 % (32.0-36.0); MONO % 10.4 % (0.0-8.0); NEUT % 78.9 % (16.0-70.0); PLATELET COUNT 218 TH/MM3 (150-450); RED BLOOD COUNT 3.59 MIL/MM3 (4.50-5.90); RED CELL DISTRIBUTION WIDTH 13.9 % (11.6-17.2); WHITE BLOOD COUNT 7.6 TH/MM3 (4.0-11.0)
[2017-04-02 08:00] VITALS: BP 179/75; PULSE 53; RESP 17; TEMP 97; O2SAT 94
[2017-04-02 08:06] LABS: BICARBONATE 23.4 MEQ/L (21.0-32.0); POTASSIUM 3.8 MEQ/L (3.5-5.1)
[2017-04-02] MEDS: SODIUM CHLORIDE 0.9% FLUSH 10 ML FLUSH IV FLUSH SCH (09:00)
[2017-04-02] MEDS ORDERED: PANTOPRAZOLE SOD 40 MG DELAYED RELEASE TAB PO SCH (09:00)
[2017-04-02] MEDS: INSULIN DETEMIR 100 UNITS/ML VIAL SQ SCH (09:54)
[2017-04-02] MEDS: THIAMINE HCL 100 MG TAB PO SCH (09:57)
[2017-04-02] MEDS: DOCUSATE SODIUM 100 MG CAP PO SCH (09:57)
[2017-04-02] MEDS: GABAPENTIN 300 MG CAP PO SCH ×3 (09:57→18:59)
[2017-04-02] MEDS: TACROLIMUS 1 MG CAP PO SCH (09:57)
[2017-04-02] MEDS: hydrALAZINE HCL 100 MG TAB PO SCH ×3 (09:57→18:59)
[2017-04-02] MEDS: LACTOBACILLUS ACIDOPHILUS TAB PO SCH ×3 (09:58→18:59)
[2017-04-02] MEDS: CYANOCOBALAMIN 1,000 MCG TAB PO SCH (09:58)
[2017-04-02] MEDS: predniSONE 5 MG TAB PO SCH (09:58)
[2017-04-02] MEDS: METOPROLOL TARTRATE 100 MG TAB PO SCH (09:58)
[2017-04-02] MEDS: FOLIC ACID 1 MG TAB PO SCH (09:58)
[2017-04-02] MEDS: MAGNESIUM OXIDE 400 MG TAB PO SCH (09:58)
[2017-04-02] MEDS: CHOLECALCIFEROL (VIT D3) 1000 UNIT TAB PO SCH (09:58)
[2017-04-02] MEDS: FUROSEMIDE 20 MG/2 ML VIAL IV PUSH SCH (09:59)
[2017-04-02] MEDS: CIPROFLOXACIN 400 MG PREMIX 200 ML IV SCH (09:59)
[2017-04-02] MEDS: SODIUM CHLOR 0.9% 1000 ML INJ 1,000 ML IV SCH (10:10)
[2017-04-02] MEDS: PRIMIDONE 50 MG TAB PO SCH (10:28)
[2017-04-02] MEDS: ACETAMINOPHEN/HYDROcodone 325 MG/7.5 MG TAB PO PRN (11:19)
[2017-04-02 12:00] VITALS: BP 198/86; PULSE 57; RESP 17; TEMP 97.7; O2SAT 94
--- NOTE | 2017-04-02 14:40 | HHI.NPPN ---
Subjective History of Present Illness 76 year old with kidney transplant DM,skin cancer s/p excision cellulitis left arm MRSA Additional Remarks Patient is alert, no SOB, mild abd. discomfort, has fever last night, now afebrile. Review of Systems General Constitutional: Fatigue Gastrointestinal Gastrointestinal: Abdominal Pain Objective Data Data 04/01/17 04/02/17 19:00 07:00 Intake Total 594 ml 360 ml Output Total 715 ml 285 ml Balance -121 ml 75 ml Intake Oral 180 ml 360 ml IV Total 414 ml Output Urine Total 650 ml 200 ml Drainage Total 65 ml 85 ml # Voids 3 # Bowel Movements 0 0 Vital Signs Date Time Temp Pulse Resp B/P Pulse Ox O2 Delivery O2 Flow Rate FiO2 04/02/17 12:00 97.7 57 17 198/86 94 04/02/17 08:00 97.0 53 17 179/75 94 04/02/17 04:00 97.3 52 19 178/76 92 04/02/17 02:31 16 04/01/17 23:27 97.7 55 19 174/72 92 04/01/17 21:40 18 04/01/17 20:00 97.5 71 19 174/76 91 04/01/17 16:00 97.6 62 18 179/77 94 -: 04/02/17 0639 04/02/17 0639 Physical Exam General Appearance: No Acute Distress, Comfortable Neck Neck Exam: Neck Supple Pulmonary Resp Exam: Clear Bilaterally, Breath Sounds Equal Cardiology CV Exam: Regular, Normal Sinus Rhythm Gastrointestinal/Abdomen GI Exam: Soft, Bowel Sounds Present, Distended (with drain.) Integumentary Skin Exam: Lesion(s) Extremeties Extremities Exam: Trace Edema Neurologic Neuro Exam: Alert, Awake Assessment/Plan Problem List: (1) Kidney transplant status, cadaveric Plan: Patient is on Prograf 4 mg twice a day and prednisone 5 mg daily continue to monitor levels continue with hydration. Tacro level is 5.1 Creatinine declined 1.37 s/p Appendectomy Continue IVF and Cipro. BP higher on BP medications follow this (2) Acute on chronic renal insufficiency Plan: Improve with hydration (3) Sepsis Plan: Likely due to his recent procedure (4) Cellulitis Plan: On Cipro MRSA in wound contaminant ? (5) IDDM (insulin dependent diabetes mellitus) Plan: Blood glucoses (6) Hypertension Plan: Still elevated, on Metoprolol hydralazine, Doxazosin and Amlodipine, and clonidine PRN. increased doxazosin 8 mg bid Problem Qualifiers (1) Sepsis: Qualified Code: A41.9 - Sepsis, due to unspecified organism (2) Cellulitis: Qualified Code: L03.114 - Cellulitis of left upper extremity (3) Hypertension: Qualified Code: I10 - Essential hypertension Surekha Yoo MD April 02, 2017 14:40
[2017-04-02] MEDS ORDERED: METR500T10 PO (17:41)
[2017-04-02] MEDS ORDERED: CIPR500T2 PO (17:41)
[2017-04-02] MEDS ORDERED: HYDR-3580 PO (17:42)
--- NOTE | 2017-04-02 17:54 | HHI.DS ---
Discharge Summary Admission Date March 26, 2017 at 21:35 Discharge Date: April 02, 2017 Admitting Diagnosis sepsis, acute on chronic renal sufficiency, cellulitis (1) Cellulitis ICD Code: L03.90 Diagnosis: Principal (2) Acute on chronic renal insufficiency ICD Code: N28.9 Diagnosis: Secondary (3) Hypertension ICD Code: I10 Diagnosis: Secondary Procedures 03/29- explor lap- grangrenous appendicitis Brief History - From Admission Mr. Gaming is a 76 y/o male with a history of end-stage renal disease status post renal transplant in 2012, diabetes mellitus, hypertension, gastroesophageal reflux disease, coronary artery disease, and hyperlipidemia who presented to the emergency room on 03/26/2017 for evaluation of generalized weakness. He was noted to have a temperature of 103 in the ER. The patient is seen in his hospital room. He reports fever and chills for 2 days duration with max temp over 103. He denies any recent cough, shortness of breath, chest pain, diarrhea, nausea, vomiting, or dysuria. He reports some vague abdominal pain that occurs only when he has chills. Sutures removed for skin cancer from left arm procedure done a couple of weeks ago - suture site examined with minimal redness and no exudate and no swelling. Two weeks ago, he was on antibiotics post-procedure and antibiotics were restarted a few days ago after sutures were removed. CBC/BMP: 04/02/17 0639 04/02/17 0639 Significant Findings Laboratory Tests Test 03/31/17 04/02/17 11:15 06:39 Blood Urea Nitrogen 28 MG/DL (7-18) 23 MG/DL (7-18) Creatinine 1.78 MG/DL 1.37 MG/DL (0.60-1.30) (0.60-1.30) Estimat Glomerular Filtration 37 ML/MIN (>89) 50 ML/MIN (>89) Rate Random Glucose 232 MG/DL 109 MG/DL (74-106) (74-106) Calcium Level 8.2 MG/DL (8.5-10.1) Red Blood Count 3.59 MIL/MM3 (4.50-5.90) Hemoglobin 10.7 GM/DL (13.0-17.0) Hematocrit 32.0 % (39.0-51.0) Neutrophils (%) (Auto) 78.9 % (16.0-70.0) Lymphocytes (%) (Auto) 7.8 % (9.0-44.0) Monocytes (%) (Auto) 10.4 % (0.0-8.0) Lymphocytes # (Auto) 0.6 TH/MM3 (1.0-4.8) Chloride Level 108 MEQ/L (98-107) Imaging Last Impressions Upper Extremity Ultrasound 03/30/17 0000 Signed Impressions: Service Date/Time: Thursday, March 30, 2017 21:32 - CONCLUSION: 1. Negative for deep venous thrombosis. AV fistula as above. Horace Garcia MD Chest X-Ray 03/30/17 0000 Signed Impressions: Service Date/Time: Thursday, March 30, 2017 05:13 - CONCLUSION: 1. Cardiomegaly with interstitial edema. Delvin Mackenzie MD Abdomen/Pelvis CT 03/28/17 1527 Signed Impressions: Service Date/Time: Tuesday, March 28, 2017 17:06 - CONCLUSION: Appendicitis Ramakrishna Holloway MD PE at Discharge anicteric - no rales or wheezes regular rhythm abdomen- soft,,+ bowel sounds, no guarding, TIFFANY drain in place extremities- LUE-- deltoid area- superficial wound- edges, clean minimal blood on dressing no lower extremities edema Pt update on day of discharge Follow up sepsis, acute on chronic renal insufficiency, cellulitis. Patient seen and examined by myself and Dr. Dawson. Patient sitting up in chair in no apparent distress. Patient denies any new acute complaints including fever, chills, cough, shortness of breath, nausea, vomiting or diarrhea. Pain is well controlled. Has been tolerating PO intake. Plan will be to dc patient home today. Hospital Course Mr. Gaming is a 76 y/o male with a history of end-stage renal disease status post renal transplant in 2012, diabetes mellitus, hypertension, gastroesophageal reflux disease, coronary artery disease, and hyperlipidemia who presented to the emergency room on 03/26/2017 for evaluation of generalized weakness. He was noted to have a temperature of 103 in the ER. Initial CXR was negative. Influenza negative. Sepsis secondary to cellulitis of left upper extremity- Leukocytosis with neutrophilia, fever, lactic acidosis, WBC 15.6 now down to 7.6 upon discharge. Lactic acid 2.1 repeat 1.0. Left upper arm wound culture grew S. Aureus MRSA. Infectious disease consulted and followed patient throughout hospital stay, discharge patient on oral cipro and flagyl. Abdomen/ Pelvis CT done and reviewed, appendicitis. General surgery consulted and performed a laparoscopic appendectomy. Ordered to follow up with general surgery in 1 week post discharge. Patient was hypertensive for hospital stay. Home medications restarted and PRN hydralazine given. Tight blood sugars maintained during hospitalization with accu checks and sliding scale insulin coverage. Acute on chronic renal failure in a renal transplant patient with initial BUN 35, creatinine 2.55, estimated GFR 25 with baseline creatinine 1.6 1.7 and eGFR mid-30s. Nephrology was consulted and followed. Renal diet continued. Avoided nephrotoxins. Will discharge home with [facility]. Zpbh-uo-uuod done. Pt Condition on Discharge: Good Discharge Disposition: Disch w/ Home Health Serv Discharge Time: > 30 minutes Discharge Instructions DIET: Follow Instructions for: Heart Healthy Diet Speech Therapy-Diet Recommends: Regular (diabetic) Activities you can perform: Regular-No Restrictions Follow up Referrals: PCP Follow-up - 1 Week Surgical - 1 Week with Raffi Bianchi MD New Medications: Ciprofloxacin (Ciprofloxacin) 500 Mg Tab 500 MG PO BID Infection #14 Ref 0 TAB Metronidazole (Metronidazole) 500 Mg Tab 500 MG PO TID Infection #21 Ref 0 TAB Hydrocodone-Acetaminophen (Hydrocodone-Acetaminophen) 7.5-325 mg Tab 1 TAB PO Q4H PRN pain 1-5 #30 TAB Continued Medications: Amlodipine (Norvasc) 10 Mg Tab 10 MG PO DAILY Blood Pressure Management #30 Ref 0 TAB Atorvastatin (Lipitor) 40 Mg Tab 40 MG PO HS Cholesterol Management #30 Ref 0 TAB Calcium Carbonate (Antacid) (Calcium Carbonate (Antacid)) 500 Mg Chew 500 MG CHEW PRN HEARTBURN Ref 0 TAB Cholecalciferol (Vitamin D3 Maximum Strength) 5,000 Unit Cap 2000 UNITS PO DAILY Nutritional Supplement #1 Ref 0 BOTTLE Cyanocobalamin (Vitamin B-12) 1,000 Mcg Tab 1000 MCG PO DAILY Nutritional Supplement #1 Ref 0 BOTTLE Doxazosin (Cardura) 8 Mg Tab 8 MG PO HS #30 Ref 0 TAB Finasteride (Finasteride) 5 Mg Tab 1 MG PO DAILY Do not crush. Manage Prostate Problems #30 Ref 0 TAB Folic Acid (Folate) 1 Mg Tab 1 MG PO DAILY Nutritional Supplement Ref 0 TAB Furosemide (Furosemide) 20 Mg Tab 20 MG PO DAILY #30 Ref 0 TAB Gabapentin (Gabapentin) 300 Mg Cap 300 MG PO TID #90 Ref 0 CAP Hydralazine (Hydralazine) 100 Mg Tab 100 MG PO TID Take with meals Blood Pressure Management Ref 0 TAB Insulin Glargine Inj (Lantus Inj) 1,000 Unit/10 Ml Vial 25 UNITS SQ BID Blood Sugar Management Ref 0 VIAL Levothyroxine (Synthroid) 75 Mcg Tab 75 MCG PO DAILY Thyroid #30 Ref 0 TAB Magnesium Oxide (Magnesium Oxide) 400 Mg Tab 800 MG PO BID Nutritional Supplement Ref 0 TAB Metoprolol Tartrate (Metoprolol Tartrate) 100 Mg Tab 100 MG PO BID #60 Ref 0 TAB Multiple Vitamin (Multiple Vitamin) 1 Tab 1 TAB PO DAILY Nutritional Supplement Ref 0 TAB Prednisone (Prednisone) 5 Mg Tab 5 MG PO DAILY Ref 0 TAB Primidone (Primidone) 50 Mg Tab 50 MG PO BID Control Seizures #60 Ref 0 TAB Tacrolimus (Tacrolimus) 1 Mg Cap 4 MG PO Q12H Prevent Transplant Reject #240 Ref 0 CAP Neisha Armijo April 02, 2017 17:54 Cari Dawson MD April 08, 2017 10:13
--- NOTE | 2017-04-02 18:42 | HHI.PR ---
Subjective Subjective Notes Patient seen around 0745---Resting in bed; hungry; just ordered breakfast Objective Vitals/I&O Vital Signs Date Time Temp Pulse Resp B/P Pulse Ox O2 Delivery O2 Flow Rate FiO2 04/02/17 12:00 97.7 57 17 198/86 94 03/30/17 15:28 Nasal Cannula 2.00 03/29/17 11:06 100 Labs Laboratory Tests Test 04/02/17 06:39 White Blood Count 7.6 Red Blood Count 3.59 Hemoglobin 10.7 Hematocrit 32.0 Mean Corpuscular Volume 89.2 Mean Corpuscular Hemoglobin 29.8 Mean Corpuscular Hemoglobin 33.4 Concent Red Cell Distribution Width 13.9 Platelet Count 218 Mean Platelet Volume 9.6 Neutrophils (%) (Auto) 78.9 Lymphocytes (%) (Auto) 7.8 Monocytes (%) (Auto) 10.4 Eosinophils (%) (Auto) 2.5 Basophils (%) (Auto) 0.4 Neutrophils # (Auto) 6.0 Lymphocytes # (Auto) 0.6 Monocytes # (Auto) 0.8 Eosinophils # (Auto) 0.2 Basophils # (Auto) 0.0 CBC Comment DIFF FINAL Differential Comment Sodium Level 140 Potassium Level 3.8 Chloride Level 108 Carbon Dioxide Level 23.4 Anion Gap 9 Blood Urea Nitrogen 23 Creatinine 1.37 Estimat Glomerular Filtration 50 Rate Random Glucose 109 Calcium Level 8.8 Date/Time Procedure Status Source Growth 03/30/17 06:57 Aerobic Blood Culture - Preliminary Resulted Blood Peripheral NO GROWTH IN 3 DAYS 03/30/17 06:57 Anaerobic Blood Culture - Preliminary Resulted Blood Peripheral NO GROWTH IN 3 DAYS Cardiovascular: Regular Lungs: Clear Abdomen: Other (soft; lap sites c/d/i; TIFFANY with SS drainage ), Post-op tenderness Narrative Exam LUE---- mild erythema on upper portion of arm ---without pain or appreciable fluid collection A/P Assessment and Plan 76 year old male POD4 lap appy----gangrenous; LUE cellulitis -Renal diet -PO Cipro/Flagyl---avoid Tums, milk and milk products -Afebrile overnight -OOB and mobilize -ID following -CM consult for HHC -GS clear for DC -Follow up with Dr. Bianchi in about 1 week for drain removal Attending Note - Dr. Bianchi Abdomen benign Drain output still too high to remove The exam, history, and the medical decision-making described in the above note were completed with the assistance of the mid-level provider. I reviewed and agree with the findings presented. I attest that I had a uzph-ji-butc encounter with the patient on the same day, and personally performed and documented my assessment and findings in the medical record. Sveta Smith April 02, 2017 18:41 Raffi Bianchi MD May 03, 2017 13:56
[2017-04-02] MEDS ORDERED: DOXAZOSIN MESYLATE 4 MG TAB PO SCH (21:00)
== END 2017-04-02 19:25 | disposition home health service (06) | DRG 853 ==
LOC: NEPC 19:42 → NEDA 21:35 → HCIS 03-27 00:34 → N04A 03-27 13:49 → N07B 03-29 10:48
PROVIDERS: ADMIT Hospitalist; ATTEND Hospitalist
PROC: 0DTJ4ZZ Resection of Appendix, Percutaneous Endoscopic Approach (ICD-10-PCS; principal; 2017-03-29 08:53)
DX: A41.9 Sepsis, unspecified organism (principal); N18.6 End stage renal disease; N17.9 Acute kidney failure, unspecified; E87.2 Acidosis; E11.65 Type 2 diabetes mellitus with hyperglycemia; E11.22 Type 2 diabetes mellitus with diabetic chronic kidney disease; L03.114 Cellulitis of left upper limb; I16.0 Hypertensive urgency; K35.80 Unspecified acute appendicitis; E11.9 Type 2 diabetes mellitus without complications; I12.0 Hypertensive chronic kidney disease with stage 5 chronic kidney disease or end stage renal disease; Z94.0 Kidney transplant status; E78.5 Hyperlipidemia, unspecified; E87.70 Fluid overload, unspecified; I25.10 Atherosclerotic heart disease of native coronary artery without angina pectoris; K21.9 Gastro-esophageal reflux disease without esophagitis; K52.9 Noninfective gastroenteritis and colitis, unspecified; N40.0 Benign prostatic hyperplasia without lower urinary tract symptoms; Z16.23 Resistance to quinolones and fluoroquinolones; Z79.4 Long term (current) use of insulin; Z85.820 Personal history of malignant melanoma of skin; Z87.891 Personal history of nicotine dependence; Z87.442 Personal history of urinary calculi; Z95.5 Presence of coronary angioplasty implant and graft
CPT/HCPCS: 71010; 74176; 76882; 76937; 80048; 80053; 80069; 80197; 81001; 82948; 83605; 83880; 85025; 85610; 85730; 86403; 87040; 87070; 87086; 87147; 87186; 87205; 87493; 87804; 88304; 93005; 93971; 94150; 94664; 96365; C9113; J0131; J0360; J0696; J0744; J1170; J1644; J1815; J1940; J1956; J2270; J2405; J2710; J3010; J7030; J7507; J7512; J7613

== ENCOUNTER 2017-12-15 10:25 | Day surgery (SDC) | payer MEDICARE, BC ==
[~2017-12-15] VITALS: Ht 185.4 cm; Wt 107.7 kg
[~2017-12-15 10:25] MED LIST changes: -ATOR40TA49 PO; +CALC500C16 CHEW; -CARD8TAB PO; +CARD8TAB2 PO; +CHOL500022 PO; +CIPR500T2 PO; -CIPR500T4 PO; -FINA1TAB2 PO; +FINA5TAB2 PO; -FOLI1 PO; +FOLI1TAB4 PO; -FURO20 PO; +FURO20TA PO; -GABA300C3 PO; +GABA300C5 PO; +HYDR-3580 PO; +HYDR-3801 PO; -HYDR100T2 PO; +LANTUS2P SQ; +LEVO.075 PO; +LIPI40TA PO; -MAGN400C2 PO; +MAGN400T2 PO; -METR-1 PO; +METR1TAB76 PO; +MULTTAB67 PO; -PERC5TAB12 PO; -PRIM50TA PO; +PRIM50TA5 PO; -SYNT75TA PO; -TAB-TAB PO; +VITA10002 PO; -VITA20004 PO; -VITATAB25 PO; -[UNRECOGNIZED DRUG - CODE] PO
[2017-12-15] MEDS ORDERED: IOHEXOL 350 MG/ML 50 ML BTL (for Cath Lab) OTHER ONE (10:26)
[2017-12-15] MEDS ORDERED: NS 1000 ML @100 MLS/HR IV SCH (11:00)
[2017-12-15 11:06] VITALS: BP 175/79; PULSE 53; RESP 18; TEMP 97.7; O2SAT 95
[2017-12-15 11:13] LABS: BASOPHIL # 0.1 TH/MM3 (0-0.2); BASOPHIL % 0.8 % (0.0-2.0); EOSINOPHIL # 0.1 TH/MM3 (0-0.4); EOSINOPHIL % 1.9 % (0.0-4.0); HEMATOCRIT 37.4 % (39.0-51.0); HEMOGLOBIN 12.6 GM/DL (13.0-17.0); LYMPHOCYTE # 0.8 TH/MM3 (1.0-4.8); MEAN CELL VOLUME 90.2 FL (80.0-100.0); MEAN CORPUSCULAR HEMOGLOBIN 30.4 PG (27.0-34.0); MEAN CORPUSCULAR HGB CONC 33.7 % (32.0-36.0); MONO % 10.7 % (0.0-8.0); MONOCYTE # 0.7 TH/MM3 (0-0.9); NEUT % 74.6 % (16.0-70.0); PLATELET COUNT 170 TH/MM3 (150-450); RED BLOOD COUNT 4.14 MIL/MM3 (4.50-5.90); RED CELL DISTRIBUTION WIDTH 13.6 % (11.6-17.2); WHITE BLOOD COUNT 6.7 TH/MM3 (4.0-11.0)
[2017-12-15] MEDS ORDERED: ASPIRIN 81 MG CHEW TAB PO SCH (11:15)
[2017-12-15 11:29] LABS: INTERNATIONAL NORMALIZED RATIO 1.1 RATIO; PROTHROMBIN TIME - PATIENT 11.2 SEC (9.8-11.6)
[2017-12-15 11:32] LABS: BICARBONATE 27.2 MEQ/L (21.0-32.0); CALCIUM 9.2 MG/DL (8.5-10.1); CREATININE 2.3 MG/DL (0.60-1.30)
[2017-12-15] MEDS ORDERED: HUMALOG SQ (11:34)
[2017-12-15] MEDS ORDERED: PROPANOLOL PO (11:34)
[2017-12-15] MEDS ORDERED: FOLI800T PO (11:34)
[2017-12-15] MEDS ORDERED: LEVO75TA3 PO (11:34)
[2017-12-15] MEDS ORDERED: FENO48TA PO (11:34)
[2017-12-15 12:16] LABS: LYMPHOCYTES 9 % (9-44); MONOCYTES 6 % (0-8); MYELOCYTES 2 % (0-0); NEUTROPHIL # MANUAL DIFF 5.6 TH/MM3 (1.8-7.7); POLYS (SEG NEUTROPHILS) 82 % (16-70)
[2017-12-15] MEDS ORDERED: MIDAZOLAM HCL 2 MG/2 ML VIAL ONE (12:32)
--- NOTE | 2017-12-15 13:12 | CATHPROC ---
[employer] HIS Report Study Information Study Number Admission Scheduled Start Study Start [id number] Dec 15 2017 10:25AM 12/15/2017 Dec 15 2017 12:00PM [place] Service Cardiac Catheterization Admit Source Facility Department Other [facility] - [facility] [employer] Supervisor Physician and Clinical Staff Initial Asvhin Zaman Slab Off Mill Tender Helen Davis BSN Recorder Jeancarlos Garcia,RT(R) Recorder Mary Rodriguez ,RT(R) Scrub Licha Valdez,RT(R) Procedures Performed Procedure Location (Site) Vessel Name Coronary Angiograms LCA Left Coronary Coronary Angiograms RCA Right Coronary LV Gram-hand inj. LV LV Ventricle Equipment Time Rail Car Repair Carman Description Size Mfg Part Number Used/Scraped CATHETER, FR5 SWAN TAHMINA 12:27 [employer] FR 5 [id number] *[id number] Used MONITOR TRANSDUCER, TRMic NetworkAVE [id number] 12:27 CESAR MARY * Used W/STOCKCOCK *[id number] [id number] *[id number] [id number] *[id number] 12:27 MEDLINE IND[employer]RIES PACK, CCL CUSTOM * Used *[id number] 12:27 MEDLINE PACER PEN, SKIN DUAL W/ RULER * Used *[id number] 12:27 Ruby Ribbon MEDICAL SHEATH, FR5.5 PRELUDE 11CM FR 5.5 Used [id number] 12:27 Ruby Ribbon MEDICAL WIRE, 3MMJ .035 180CM 180CM Used *[id number] 12:27 NAMIC MANIFOLD, 4 PORT * Used *[id number] 12:27 NYCOMED OMNIPAQUE, 350 MG, 150ML 150ML [id number] 12:27 TORRES MEDICAL BLANKET,WARM AIR CCL * Used *[id number] 12:27 TERUMO MEDICAL SHEATH, FR4 TERUMO (10CM) FR 4 Used *[id number] History: Allergies Allergy Reaction amoxicillin HIVES Contrast Media Urinary Freq (Inc/Dec) Penicillin Anaphylaxis *MDRO Multi-Drug Resistant Organism Betadine latex iohexol Urinary Freq (Inc/Dec) diatrizoate meglumine Urinary Freq (Inc/Dec) povidone-iodine gadoteridol Urinary Freq (Inc/Dec) gadodiamide Urinary Freq (Inc/Dec) penicillin G Anaphylaxis iodixanol Urinary Freq (Inc/Dec) gadobenic acid Urinary Freq (Inc/Dec) History: Risk Factors Family History of Hypertension Dyslipidemia Previous TX Previous Heart Failure Premature CAD Yes Yes No Yes No Prior Valve Prior PCI Prior PCIDate Prior CABG Surgery No Yes 02/22/2011 No Cerebrovascular Peripheral Artery Chronic Lung On Dialysis Diabetes Diabetes Therapy Disease Disease Disease No No No No Yes Insulin History: Stress Tests Stress or Imaging Studies Performed No History: Other Current Smoker Method Quit Packs a Day Years Used Pack Years No Cigarettes 50 Years Ago 1 10 10 Labs Hgb (g/dl) Hct (%) WBC (l/cumm) Platelets (thousands) 11.60-17.00 35.00-51.00 4.00-11.00 150.00-450.00 12.6 37.4 6.7 170 BUN (mg/dl) Creatinine (mg/dl) BUN:Creatinine (1:x) 7.00-18.00 0.50-1.30 10.00-20.00 31 2.3 13.5 Na (meq/l) K (meq/l) 136.00-145.00 3.50-5.10 141 2.3 INR (PTT:PT) 0.90-1.10 1.1 CPK-MB (ng/ML) 0.50-3.60 Not Drawn Medication Medication Total Dose (Bolus/Oral) Medication Total Dosage/Unit 1% XYLOCAINE 20 mL VERSED 1 mg Medications (Bolus/Oral) Medication Time Given Dosage/Unit Administered By Reason VERSED 12/15/2017 12:45:52 PM 1 mg Helen Davis 1 mg VERSED given in lab by Helen Davis BSN in Right Antecubital via Peripheral IV. Ordered by Ashvin Chandler. 1% XYLOCAINE 12/15/2017 12:46:19 PM 20 mL Helen Davis 20 mL 1% XYLOCAINE given in lab by Helen Davis BSN in Right Groin via Subcutaneous. Ordered by Ashvin Chandler. Medication (Drip) Medication Time Given Dosage/Unit Concentration/Unit Diluent (ml) Solution IV Bolus 12/15/2017 1:00:36 PM 2 mL (Bolus) NaCl .9 2 mL (Bolus) IV Bolus given in lab by Helen Davis BSN via Peripheral IV. Using NaCl .9. Orde red by Ashvin Chandler. IV Solutions 12/15/2017 12:21:58 PM 50 mL (IV) 500 NaCl .9 Patient arrived on IV Solutions in Right Antecubital via Peripheral IV. Pump/Drip Flow using NaCl .9. Final Case Assessment Cardiovascular HR Rhythm NIBP Chest Pain 68 sr 162/84 0 Edema Present Skin color Skin None Normal Warm Dry Circulatory - Right Pulses Dorsalis Pedis Femoral 1 2 Scale (0,1,2,3,4,d) Circulatory - Left Pulses Dorsalis Pedis Femoral 1 2 Scale (0,1,2,3,4,d) Neurological State Oriented to time-place- Alert Moves all extremities person Respiration - General Respiration Rate SpO2 (%) (B/min) 11 96 Final Case Assessment Cardiovascular HR Rhythm NIBP Chest Pain 60 sr 168/78 0 Edema Present Skin color Skin None Normal Warm Dry Circulatory - Right Pulses Dorsalis Pedis Femoral 2 2 Scale (0,1,2,3,4,d) Circulatory - Left Pulses Dorsalis Pedis Femoral 2 2 Scale (0,1,2,3,4,d) Neurological State Oriented to time-place- Alert Moves all extremities person Respiration - General Respiration Rate SpO2 (%) (B/min) 18 99 Chronological Log Time Study Chronological Log 12:15:55 Patient arrived via Bed. 12:15:56 Patient Name, D.O.B, / Armband Verified By R.N. 12:15:57 Consent signed by the physician and the patient and verified by the Automation And Controls Supervisor staff. 12:15:58 Pre-op and post- op instructions given; patient acknowledges understanding of instructions. 12:17:39 Verbal Stimulation=2 Physical Stimulation=2 Airway=2 Respiration=2 TOTAL=8. (0=absent, 1=li mited, 2=present) 12:17:49 Presedation assessment performed by Automation And Controls Supervisor RN. 12:17:51 Patient has been NPO for More than 6Hrs. 12:21:00 Skin Breakdown- Scab present right shoulder 12:21:53 Dannie Prominences Protected 12:21:57 A # 20 IV was noted in the Antecubital (right). Grade = 0 12:21:58 Patient arrived on IV Solutions in Right Antecubital via Peripheral IV. Pump/Drip Flow usin g NaCl .9. 12:22:34 History and physical on the chart or being dictated. Assessment: Final Case, HR=68 BPM, Rhythm=sr, BOCL=737/84 mmhg, Chest Pain=0, Edema=None, Color =Normal, Skin = Warm, Dry Right Pulses: González Ped=1, Femoral=2 12:22:37 Left Pulses: González Ped=1, Femoral=2 Neurological: State=Alert, Ox3, BARRERA Respiration: Resp=11 B/min, SpO2=96 % Vitals capture started with the following parameters, Patient=Adult, Interval=5 min, Initial Pr juwjmx=630 mmHg, 12:23:18 Deflation Rate=5 mmHg, Cuff placed on Left Arm 12:23:58 HR=57 bpm, OUTH=168/84 mmhg, SpO2=96.0 %, Resp=7 B/min, Vallecillo=2 12:25:49 Bilateral groins prepped with 2% chlorhexidine, and draped after a 3 minute waiting time. 12:27:00 Reference ECG taken 12:29:44 HR=67 bpm, XVWK=231/82 mmhg, SpO2=96.0 %, Resp=12 B/min, Vallecillo=2 12:32:14 MD paged 12:32:37 MD responded 12:34:02 HR=66 bpm, SJGO=106/89 mmhg, SpO2=94.0 %, Resp=16 B/min, Vallecillo=2 12:34:31 MD arrived. 12:35:45 Pressure channel 1 zeroed. 12:39:03 HR=60 bpm, KBYU=831/80 mmhg, SpO2=94.0 %, Resp=21 B/min, Vallecillo=2 12:44:02 HR=61 bpm, LQZR=112/87 mmhg, SpO2=94.0 %, Resp=11 B/min, Vallecillo=2 Time Out. Correct patient, correct procedure, correct physician, power injector not loaded with contrast with surgical 12:45:09 team present. Time Out Concurred by MD and individual staff in procedure. 12:45:26 Case Start 1 mg VERSED given in lab by Helen Davis BSN in Right Antecubital via Peripheral IV. Or dered by Ramesh, 12:45:52 Ashvin. 20 mL 1% XYLOCAINE given in lab by Helen Davis BSN in Right Groin via Subcutaneous. Or dered by 12:46:19 Ashvin Chandler. 12:47:06 Access site was Right Femoral Artery. 12:47:15 A SHEATH, FR4 TERUMO (10CM) FR 4 was advanced into the Fem Art (right) using the Percutaneo us technique. 12:48:31 Access site was Right Femoral Vein. 12:49:03 HR=59 bpm, VKDQ=433/84 mmhg, SpO2=94.0 %, Resp=12 B/min, Vallecillo=2 12:49:10 A SHEATH, FR5.5 PRELUDE 11CM FR 5.5 was advanced into the Fem Vein (right) using the Percut aneous technique. 12:49:30 A CATHETER, FR5 SWAN TAHMINA MONITOR FR 5 was inserted via Fem Vein (right) Recorded Pressure: PCW, HR=69, Condition=Condition 1 12:50:23 (Pulmonary Capillary Wedge) PCW Recorded Pressure: MPA, HR=69, Condition=Condition 1 12:50:45 (Main Pulmonary Artery) MPA 20/09/19 Recorded Pressure: RV, HR=59, Condition=Condition 1 12:51:42 (Right Ventricle) RV Recorded Pressure: RA, HR=62, Condition=Condition 1 12:51:57 (Right Atrium) RA 12:52:31 [place] Tahmina Catheter Removed A JR 4.0 INFINITI CATHETER FR 4 was advanced over a wire. OMNIPAQUE, 350 MG, 150ML 150ML was us ed for 12:52:45 injections. 12:54:02 HR=59 bpm, DVQZ=968/81 mmhg, SpO2=94.0 %, Resp=19 B/min 12:54:03 Saturation: Site=FA (Femoral Artery) , O2=96.9 %, Hgb=12.6 gm/dl, Condition=Condition 1. Us ed in calculation. Recorded Pressure: LV, HR=73, Condition=Condition 1 12:54:36 (Left Ventricle) LV 147/4/11 12:54:40 The LV was manually injected with 10 cc's and visualized. OMNIPAQUE, 350 MG, 150ML 150ML us ed. Recorded Pressure: LV, Ao, HR=61, Condition=Condition 1 12:54:52 (Left Ventricle) LV ?/?/?, (Aorta) Ao 141/53/88 12:55:17 The RCA was injected and visualized at various angles. OMNIPAQUE, 350 MG, 150ML 150ML used . 12:55:29 Catheter was removed A JL 4.0 INFINITI CATHETER FR 4 was advanced over a wire. OMNIPAQUE, 350 MG, 150ML 150ML was us ed for 12:55:32 injections. 12:55:39 The LCA was injected and visualized at various angles. OMNIPAQUE, 350 MG, 150ML 150ML used . 12:55:47 Saturation: Site=PA (Pulmonary Artery) , O2=80.6 %, Hgb=12.6 gm/dl, Condition=Condition 1. Used in calculation. 12:55:59 Saturation: Site=RA (Right Atrium) , O2=81.1 %, Hgb=12.6 gm/dl, Condition=Condition 1. Use d in calculation. 12:59:01 HR=58 bpm, SHHK=664/78 mmhg, SpO2=94.0 %, Resp=16 B/min, Vallecillo=2 12:59:36 Catheter was removed 13:00:00 Case End Assessment: Final Case, HR=60 BPM, Rhythm=sr, HNRN=998/78 mmhg, Chest Pain=0, Edema=None, Wayside r=Normal, Skin = Warm, Dry Right Pulses: González Ped=2, Femoral=2 13:00:30 Left Pulses: González Ped=2, Femoral=2 Neurological: State=Alert, Ox3, BARRERA Respiration: Resp=18 B/min, SpO2=99 % 2 mL (Bolus) IV Bolus given in lab by Helen Davis , SERAFIN via Peripheral IV. Using NaCl . 9. Ordered by 13:00:36 Ashvin Chandler. 13:00:45 Sheath(s) left in place, will be removed in Holding Area 13:00:58 Sterile dressing applied to site 13:00:59 No case complications noted. 13:01:01 Cine recording checked. 13:01:12 Bedside Report will be given. 13:01:17 Contrast Scanned 13:02:35 A Left and Right Heart Cath was performed. 13:04:02 HR=59 bpm, BWCP=983/81 mmhg, SpO2=95.0 %, Resp=13 B/min 13:07:03 Vitals capture stopped. End Study - Contrast Media Used In Study Contrast Total Opened (mL) Total Used (mL) Total Wasted (mL) Omnipaque 33 33 0 End Study - Maximum Contrast Load Max Contrast Load (mL) 234.1 End Study - Radiation Exposure Fluoro Time (minutes) 2.6 End Study - Patient Disposition Complications Transferred To Interventional Outcome No Outpatient Bed No attempt made
[2017-12-15] MEDS ORDERED: hydrALAZINE HCL 20 MG/ML VIAL ONE (13:21)
[2017-12-15] MEDS ORDERED: MISC INFORMATION XX ONE (13:30)
[2017-12-15] MEDS ORDERED: SODIUM CHLORIDE 0.9% FLUSH 10 ML FLUSH IV FLUSH PRN (13:30)
[2017-12-15] MEDS ORDERED: HEPARIN-NS/PF INJ 500 ML ONE (13:38)
[2017-12-15] MEDS ORDERED: BACITRACIN OINT 0.9 GM PKT TOP ONE (14:00)
[2017-12-15] MEDS ORDERED: hydrALAZINE HCL 20 MG/ML VIAL IV ONE (14:00)
[2017-12-15] MEDS ORDERED: SODIUM CHLORIDE 0.9% FLUSH 10 ML FLUSH IV FLUSH SCH (21:00)
--- NOTE | 2017-12-16 10:19 | MA ---
cc: BOONE JUNE M.D. DATE 12/15/2017 PROCEDURE 1. Right heart catheterization. 2. Left heart catheterization. 3. Left ventriculography. 4. Coronary angiography. INDICATION FOR PROCEDURE Coronary artery disease, unstable angina, [place] Cardiovascular Society Class III angina, worsening severe dyspnea on exertion, anginal equivalent, [place] Heart Association Class III congestive heart failure, chronic renal insufficiency, known coronary artery disease. DETAILS OF PROCEDURE The patient was brought to the cardiac catheterization laboratory, prepped and draped in a usual sterile fashion. 10 cc of 1% lidocaine was used to locally anesthetize the right common femoral artery. A 4 Zambian sheath was successfully placed in the right common femoral artery. A 5 Zambian sheath was placed in the right common femoral vein. Right heart catheterization was performed first with the following findings: Pulmonary capillary wedge pressure 16/17-9. PA pressure 20/10-19. RV pressure 31/5-9. RA pressure 9/7-6. Cardiac output by Heriberto is 10.3 liters per minute. Cardiac index by Heriberto is 4.5 liters per meter squared per minute. SVR is 634 dynes on room air. FA sat 96.9%. PA sat 80.6%. RA sat 80.1%. Left heart catheterization was then performed with a 4 Zambian JL4 and JR4 catheter with the following findings: LV pressure 140/5-8. EF 65-70%. LV pressure hyperdynamic. Note, the left main, proximal LAD and proximal circumflex are heavily calcified fluoroscopically. The right coronary artery is subtotally occluded in the proximal segment with KATIANA-I flow by right-right collaterals to the midsegment then is occluded in the midsegment. The left main coronary artery has an ostial proximal 20% stenosis. The LAD has moderate diffuse disease up to 50% in the prox-mid segment. The distal LAD has 40% stenosis. The first diagonal artery is a small vessel, 1.52 mm diameter reference vessel diameter, with an ostial proximal 50-60% stenosis. The LAD is transapical and supplies synl-os-sgogd collaterals to the right coronary artery. The left circumflex vessel is a large vessel with mild diffuse disease in the proximal segment up to 20% angiographically. The first obtuse marginal vessel is a large vessel with mild diffuse disease up to 10-20% angiographically. The remainder of the AV groove left circumflex vessel has no significant obstructive disease and supplies two small 0.5 mm reference vessel diameter posterolateral arteries which have no significant obstructive disease. CONCLUSIONS 1. Angiographically occluded prox-mid right coronary artery which is the patient has a history of with zsbn-yc-cgcmr collaterals and otherwise mild to moderate left main LAD and circumflex disease as detailed above. 2. Hyperdynamic LV systolic function of 65-70%. 3. Low end normal right heart cath pressures as detailed above. Note, the patient was given a liter of normal saline pre procedure and will continue another liter of normal saline post procedure. Note, I used a total 33 cc of contrast during the entire procedure. RECOMMENDATIONS Recommend continuing aspirin 81 mg daily. The patient is intolerant of statins. He has been instructed to follow-up with me on Friday, December 17, 2017. MD RADHIKA Velazquez/BT /1:04 PM /9:52 AM
[2017-12-16] MEDS ORDERED: PROP40TA3 PO (10:41)
--- NOTE | 2017-12-16 22:37 | EKG ---
Date Performed: 12/15/2017 Time Performed: 11:08:46 PTAGE: 77 years EKG: Sinus bradycardia with sinus arrhythmia with 1st degree A-V block. Abnormal ECG PREVIOUS TRACING : 03/26/2017 20.27 DOCTOR: Thi Munoz Interpretating Date/Time 12/16/2017 22:36:47
== END 2017-12-15 17:10 | disposition home or self-care (01) ==
LOC: HDOC 10:25 → HDIC 10:26 → HDOC 17:10
PROVIDERS: ATTEND Internal Medicine Interventional Cardiology
DX: I25.110 Atherosclerotic heart disease of native coronary artery with unstable angina pectoris (principal); I50.9 Heart failure, unspecified; N28.9 Disorder of kidney and ureter, unspecified; Z01.818 Encounter for other preprocedural examination; R06.00 Dyspnea, unspecified; Z01.810 Encounter for preprocedural cardiovascular examination
CPT/HCPCS: 80048; 82810; 85007; 85027; 85610; 85730; 93005; 93460; 99152; C1769; C1893; J0360; J1644; J2250; Q9967

== ENCOUNTER 2018-03-04 06:08 | Inpatient (IN) | payer MEDICARE, BC ==
[~2018-03-04] VITALS: Ht 182.9 cm; Wt 119.7 kg
[~2018-03-04 06:08] MED LIST changes: -CIPR500T2 PO; +FENO48TA PO; -FOLI1TAB4 PO; +FOLI800T PO; +HUMALOG SQ; -METR1TAB76 PO; +PROP40TA3 PO; +TRAM50TA PO
[2018-03-04] MEDS ORDERED: ARTIFICIAL TEARS OPTH OINT 3.5 APPLIC/3.5 GM TUBO ONE (07:07)
[2018-03-04] MEDS ORDERED: ACETAMINOPHEN 1000 MG/100 ML 100 ML IV ONE (07:07)
[2018-03-04] MEDS ORDERED: PROPOFOL 500 MG/50 ML INJ 100 ML ONE (07:07)
[2018-03-04] MEDS ORDERED: LACTATED RINGER'S 1000 ML IV PRN (07:15)
[2018-03-04] MEDS ORDERED: VANCOMYCIN 1 GM/200 ML PREMIX ON-CALL IV SCH (07:15)
[2018-03-04] MEDS ORDERED: METOPROLOL TARTRATE 25 MG TAB PO PRN (07:15)
[2018-03-04] MEDS ORDERED: CHLORHEXIDINE GLUCONATE 2 % 1 PACK (2 CLOTHS) TOPICAL PRN (07:15)
[2018-03-04] MEDS ORDERED: SODIUM CHLORID 0.9% 500 ML IV PRN (07:15)
[2018-03-04 07:59] LABS: BILIRUBIN, URINE NEG (NEG); BLOOD, URINE NEG (NEG); GLUCOSE,URINE NEG (NEG); HYALINE CAST, URINE 30 /lpf (RARE); KETONE, URINE NEG (NEG); MUCUS URINE FEW /lpf (OCC); NITRITE,URINE NEG (NEG); PH, URINE 6.5 (5.0-8.5); URINE COLOR YELLOW (YELLW/STRAW); URINE LEUKOCYTE ESTERASE NEG (NEG)
[2018-03-04 11:33] LABS: INTERNATIONAL NORMALIZED RATIO 1.1 RATIO; PROTHROMBIN TIME - PATIENT 11.4 SEC (9.8-11.6)
[2018-03-04] MEDS ORDERED: PHENYLEPH/NS 1000 MCG/10 ML SYR IV ONE (12:00)
[2018-03-04] MEDS ORDERED: LACTATED RINGER'S 1000 ML INJ 1,000 ML IV ONE (12:00)
[2018-03-04] MEDS ORDERED: LIDOCAINE HCL 1% PF 5 ML SYRINGE OTHER ONE (12:00)
[2018-03-04] MEDS ORDERED: ROCURONIUM INJ 50 MG/5 ML SYRINGE IV PUSH ONE (12:00)
[2018-03-04] MEDS ORDERED: PROPOFOL 200 MG/20 ML AMP IV ONE (12:00)
[2018-03-04] MEDS ORDERED: PHENYLEPHRINE HCL 10 MG/ML VIAL IV ONE (12:00)
[2018-03-04] MEDS ORDERED: ceFAZolin INJ 1,000 MG VIAL IV ONE ×2 (12:00→19:58)
[2018-03-04] MEDS ORDERED: ePHEDrine/NS 25 MG/5 ML SYRINGE IV ONE (12:00)
[2018-03-04] MEDS ORDERED: GLYCOPYRROLATE 1 MG/5 ML SYRINGE IV PUSH ONE (12:00)
[2018-03-04] MEDS ORDERED: NORMOSOL R INJ 1,000 ML IV ONE (12:00)
[2018-03-04] MEDS ORDERED: ceFAZolin INJ 1,000 MG VIAL ONE (12:22)
[2018-03-04] MEDS ORDERED: THROMBIN (TOPICAL) 5,000 UNIT VIAL ONE (12:26)
[2018-03-04] MEDS ORDERED: VANCOMYCIN HCL 1000 MG VIAL ONE (12:26)
[2018-03-04] MEDS ORDERED: GELFOAM SIZE 100 ONE (12:26)
[2018-03-04] MEDS ORDERED: GENTAMICIN SULFATE 80 MG/2 ML VIAL ONE (12:27)
[2018-03-04] MEDS ORDERED: BUPIVACAINE/EPINEPHRINE 0.5% PF 10 ML VIAL ONE (12:34)
[2018-03-04] MEDS ORDERED: BUPIVACAINE HCL PF 0.5% 30 ML VIAL ONE (14:48)
[2018-03-04] MEDS ORDERED: HEPARIN SODIUM - SQ 10,000 UNITS/ML VIAL ONE (14:48)
[2018-03-04] MEDS ORDERED: methylPREDNISolone SOD SUCC 40 MG/1 ML VIAL ONE (15:59)
[2018-03-04] MEDS ORDERED: methylPREDNISolone SOD SUCC 125 MG/2 ML VIAL ONE (16:00)
[2018-03-04] MEDS ORDERED: ceFAZolin 2 GM in NS 100 ML IV SCH (20:15)
[2018-03-04] MEDS ORDERED: MIDAZOLAM HCL 2 MG/2 ML VIAL ONE (20:19)
[2018-03-04] MEDS ORDERED: NALOXONE HCL 0.4 MG/ML AMP IV PUSH PRN (21:15)
[2018-03-04] MEDS ORDERED: GLUCAGON 1 MG/ML VIAL OTHER PRN (21:15)
[2018-03-04] MEDS ORDERED: DEXTROSE 50% IN WATER 50 ML VIAL(D50) IV PUSH PRN (21:15)
[2018-03-04] MEDS ORDERED: diphenhydrAMINE HCL 50 MG/ML VIAL IV PUSH PRN (21:15)
[2018-03-04] MEDS ORDERED: ACETAMINOPHEN 325 MG TAB PO PRN (21:15)
[2018-03-04] MEDS ORDERED: MORPHINE SULFATE 2 MG/ML SYRINGE IV PUSH PRN (21:15)
--- NOTE | 2018-03-04 21:27 | RADRPT ---
EXAM DATE/TIME: 03/04/2018 16:02 [place] COMPARISON: No previous studies available for comparison. INDICATIONS : L4-S1 fusion. MEDICAL HISTORY : None. SURGICAL HISTORY : None. ENCOUNTER: Subsequent ACUITY: 1 day PAIN SCORE: Non-responsive. LOCATION: L-Spine FINDINGS: There is transpedicular screw and juan fixation across L4-5-S1 with disc spacers. Normal alignment. CONCLUSION: 1. Fixation lower lumbar spine as above. Horace Garcia MD on March 04, 2018 at 21:24 Board Certified Radiologist. This report was verified electronically.
[2018-03-04] MEDS ORDERED: DO NOT ADM ANY ANTICOAGULANT DRUGS PRN (21:30)
[2018-03-04] MEDS: PCA - TOTAL MG DILAUDID DELIVERED PER SHIFT SCH (22:00)
[2018-03-04] MEDS ORDERED: *morphine SULFATE 8 MG/ML PERIprocedure ONLY ONE ×2 (22:01→22:14)
[2018-03-04] MEDS: NS + KCL 20 MEQ INJ 1,000 ML IV SCH (22:30)
--- NOTE | 2018-03-04 22:47 | PD.OP ---
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 L5-S1 segmantal posterolateral fusion using autologous bone graft and demineralized bone matrix. Microsurgical dissection Anesthesia: general endotracheal Surgeon: Rubio Kimbrough Respiratory Support Technician(s): Kate Moreland Operation and Findings: INDICATIONS FOR THE SURGICAL PROCEDURE Mr Gaming is a 77 year-old male who presented with intractable mechanical back pain and allen evidence of lower extremity L5 and S1 radiculopathy. He failed maximum nonsurgical management including multiple modalities of conservative treatment as well as pain management interventions by an interventional pain specialist. A surgical decompression and arthrodhesis were indicated as a last resort. The [id number] details of the procedure, indications, alternatives, risks and potential complications were fully discussed with the patient. The patient fully understood. All the questions were answered. No guarantees were given. The patient voiced requesting the procedure and provided informed consents. The patient was offered the alternative of delaying the procedure and continuing with nonsurgical management. DETAILS OF THE SURGICAL PROCEDURE Prior to the procedure, the surgical incision was marked in the preoperative surgical holding room, and the procedure, risks, and potential complications revisited with the patient. Placement of electrodes for intraoperative neurophysiological monitoring was completed. The patient was taken to the operative room, and following induction of general anesthesia, endotracheal intubation was performed. A Vergara catheter, bilateral RAJ hose and sequential compression devices were placed and kept throughout the procedure. The patient was positioned prone, over a Constantino table over a Moreno frame. All pressure in the preoperative surgical holding room points were carefully padded with eggcrate and gel mattress. The eyes were tapped shut after ointment was applied by the nesthesiologist to prevent corneal abrasion. A Chad hugger was placed over the expossed lower body to maintain control of the core body temperature. The electrophysiological team placed the needles and electrodes in their proper location and baseline SSEP's and motor evoked potentials were registered prior and following the positioning. The entrance to each pedicles was marked using a C arm. The lumbar region was prepped and draped in the usual sterile fashion. The surgical procedure was performed in several steps as follow: SURGICAL APPROACH Once the patient was positioned, a localizing cross-table lateral x-ray was performed with a C-arm. Two paramedian small incisions were outlined on the skin approximately 3cm from the midline. The skin incisions were made with a # 10 blade. Small bleeders were controlled with the cautery. The dissection was then carried out into deper planes and through the thoracolumbar fascia with a Bovie. The intermuscular septum was identified and the myscles were blunted dissected along the septum. The facets and transverse process of L4, L5 and S1 were exposed and the proper anatomical landmarks were identidied. A microsurgical self-retaining retractor was placed on the incision, and a localizing lateralizing cross-table x-ray was performed with an instrument underneath a lamina of the lumbar spine. There was a bilateral pars defect with gross instability of the bony structures. INSTRUMENTAL FIXATION At this point in the procedure, placement of bilateral transpedicular screws was necessary for stabilization of the spine. Initially, the entry point for the screw was selected anatomically at the junction of the facet, with the transverse process, and the pars interarticularis at L4 and L5. This was started with a Giamshetti needle followed by the use of a conde wire. A tap was used to create the threads for the screws. Finally bilateral transpedicular screws were carefully placed bilaterally at L4, L5, and and S1 under fluoroscopic visualization. An appropriate purchase was achieved with all screws. The position of each screw was assessed anatomically with an AP, lateral , oblique Xrays. An intraoperative scan view of the spine was then performed using the iso-centric c-arm. Each screw was then assessed electrophysiologically with a nerve stimulator. SURGICAL DECOMPRESSION There was significant mass effect with compression of the neural structures. In order to relieve neural compression, it was necessary to perform a decompressive laminectomy, with decompression of the spinal canal and bilateral lateral recesses. Note that the scope of such decompression was significantly more extensive than the minimal exposure necessary to perform an interbody fusion, as there was extreme facet arthropathy with near complete collapse of the disk spaces and severe stenosis cause by the hyperthrophic joint facets. At this point of the procedure the operative microscope was draped in the usual sterile fashion and brought to the field. The rest of the surgical procedure was performed using microdissection technique with the exception of the closure. Under the operating microscope, a decompressive laminectomy was carried out at L5-S1 as follow: The laminae, base of the spinous processes and facets were carefully drilled exposing the ligamentum flavum. The facets were abnormal with severe facet arthropathy, vacuum facets, and mass effect over the neural structures. A broad disk protusion was contributing to compression of the neural structures and exiting L5, and S1 nerve roots. A near complete facetectomy was necessary resulting in further mechanical instability. The ligamentum flavum appeared hypertrophic, resulting on mass effect on the dorsal surface of the neural structures. The superior free border of the ligamentum flavum was elevated with a ligament dissector and the ligamentum flavum was removed with a 3 and 4 mm Kerrison forceps. The ligament was very adherent to the dural sac and during the dissection, ans extreme care was taken during the dissection. The exiting nerve roots were identified, and a wide foraminotomy was performed with a Kerrison in their trajectory towards the neural foramenat both levels. Epidural veins located laterally to the dural sac were coagulated with the bipolar cautery, and then incised using microscissors. Gentle medial retraction of the dural sac allowed me to expose the disc space for the discectomy. Upon completion of the discectomy, an excellent decompression of the neural structures was achieved. Increased motion was noted thorough the procedure, which was consistent with mechanical instability. INTERBODY ARTHRODHESIS In order to correct the narrowing of the disk space and maintain distraction of the space, and to achieve a solid interbody fusion, it was necessary the insertion of an interbody device into the disk space. Otherwise, the disk space would collapse, compromising the result of the surgical procedure. At this point of the procedure, the annulus fibrosus of the disk was carefully coagulated with a bipolar cautery and incised using an 11 bladed knife. Then, a microdiscectomy was carried out in a standard fashion using a combination of straight and up-biting pituitary forceps. A reverse angle curette was applied underneath the posterior longitudinal ligament, and used to push the disk fragments into the disk space, so they can be safely removed with a pituitary forceps. Once the discectomy was completed, it was necessary to decorticate the endplates, in order to eliminate the cartilaginous endplate and to expose healthy bone appropriate to perform the interbody fusion. The endplates at L4-5 , and L5-S1 were then thoroughly decorticated using increasing size bone lyubov and ring curets, eliminating the cartilaginous fragments from both, the superior and inferior endplates. A disk space distractor was applied to the pedicle screws and gentle distraction was applied. This maneuver was assisted by the use of a disk distractor. Increased motility was noted at the disk, which was consistent with instability due to facet arthropathy. Once a thorough preparation of the disk space was achieved, the disk space was irrigated with antibiotic solution, and the interbody fusion was performed by carefully impacting PPEK cages filled with autologous iliac crest bone graft. The use of several shoe impactors with different angulation, allowed me for an excellent, proper position of the interbody cage. A solid position of the cage with good purchase was achieved. The position of the cages were assessed anatomically with a probe and radiologically with the C-arm. POSTEROLATERAL FUSION The posterolateral fusion is a critical component to the procedure, to prevent future fatigue and failure of the instrumental fixation. Initially, the transverse processes of the vertebral bodies, lateral surface of the facets and the lateral gutters of the spine were carefully cleaned, eliminating all soft tissue and muscle attachments. The area was then irrigated with a large amount of antibiotic solution. Subsequently, the transverse processes, lateral surface of the facets, and lateral gutters of the spine were thoroughly decorticated using the TPS drill with a 5mm cutting herrera, exposing cancellous bone, in preparation for the posterolateral fusion. The incision was again irrigated with antibiotic solution. Then, the posterolateral fusion was then performed by carefully packing the lateral gutters of the spine at L4-5, and L5-S1 with autologous bone combined with demineralized bone matrix. COMPLETION OF THE INSTRUMENTATION AND CLOSURE The rods were brought to the field, applied to all the screws, and the screw caps were sequentially applied. Compression was performed between the pedicle screws, and final tightening of the screws was completed using a torque wrench. A cross-link was used to connect the rods, in order to increase the stability of the construct. The cross link was secured using a torque wrench previously calibrated. The incision was again thoroughly irrigated with several liters of antibiotic solution, and hemostasis secured with the bipolar cautery. A Valsalva Maneuver performed by the anesthesiologist failed to show any evidence of cerebrospinal fluid leak or bleeding. A 7 mm Constantino-Schaeffer drain was left in the epidural space and externalized through a separate stab incision. The incision was then closed in planes. 0 Vicryl was used in an interrupted fashion to close the thoracolumbar fascia and the superficial fascia. The subcutaneous tissue was then approximated using 3-0 Vicryl in an interrupted fashion. Special care was taken to avoid space. The skin was then closed with 4-0 Vicryl in a running, subcuticular fashion. Dermabond was applied to the skin. Each plane of closure was irrigated with antibiotic solution. At the end of the procedure the sponge, needle and instrument counts were all correct. Estimated blood loss was 500 cc or less. No blood transfusion was given. The entire procedure was performed using continuous electrophysiological monitoring of the somatosensorial evoked potentials and EMG. The patient received prophylactic antibiotics. The patient was then extubated and transferred to the recovery room in stable condition. Rubio Kimbrough MD Mar 04, 2018 22:47
[2018-03-04] MEDS: HYDROmorphone HCL PCA 6 MG/30 ML IV SCH (23:03)
[2018-03-04] MEDS: TACROLIMUS 1 MG CAP PO SCH (23:25)
[2018-03-05] VITALS (7 sets, daily range): BP systolic 120–191; BP diastolic 54–79; PULSE 56–102; RESP 16–18; TEMP 97.6–99.7; O2SAT 90–99
[2018-03-05] MEDS: PCA - TOTAL MG DILAUDID DELIVERED PER SHIFT SCH ×3 (06:24→22:00)
[2018-03-05] MEDS: LEVOTHYROXINE SODIUM 75 MCG TAB PO SCH (06:24)
[2018-03-05] MEDS: traMADol HCL 50 MG TAB PO PRN ×2 (06:25→12:15)
[2018-03-05] MEDS: NS + KCL 20 MEQ INJ 1,000 ML IV SCH (07:07)
[2018-03-05] MEDS: INSULIN ASPART SUPPLEMENTAL SCALE SQ SCH ×4 (08:00→21:00)
[2018-03-05] MEDS: PROSCAR PO SCH (09:00)
[2018-03-05] MEDS: hydrALAZINE HCL 100 MG TAB PO SCH ×3 (09:00→17:40)
[2018-03-05] MEDS: HYDROmorphone HCL PCA 6 MG/30 ML IV SCH ×2 (09:01→21:51)
[2018-03-05] MEDS: MORPHINE SULFATE 4 MG/ML INJ IV PUSH PRN ×2 (09:06→15:16)
[2018-03-05] MEDS: PROPRANOLOL HCL 40 MG TAB PO SCH (09:06)
[2018-03-05] MEDS: PRIMIDONE 50 MG TAB PO SCH ×2 (09:06→23:02)
[2018-03-05] MEDS: TACROLIMUS 1 MG CAP PO SCH ×2 (09:07→22:50)
[2018-03-05] MEDS: FOLIC ACID 1 MG TAB PO SCH (09:08)
[2018-03-05] MEDS: FUROSEMIDE 20 MG TAB PO SCH (09:08)
[2018-03-05] MEDS: predniSONE 5 MG TAB PO SCH (09:08)
[2018-03-05] MEDS: CYANOCOBALAMIN 1,000 MCG TAB PO SCH (09:08)
[2018-03-05] MEDS: GABAPENTIN 300 MG CAP PO SCH ×3 (09:08→17:40)
[2018-03-05] MEDS: CHOLECALCIFEROL (VIT D3) 1000 UNIT TAB PO SCH (09:08)
[2018-03-05] MEDS: MULTIVITAMIN TAB PO SCH (09:08)
[2018-03-05] MEDS: METOPROLOL TARTRATE 100 MG TAB PO SCH ×2 (09:09→22:50)
[2018-03-05] MEDS: MAGNESIUM OXIDE 400 MG TAB PO SCH ×2 (09:09→22:50)
[2018-03-05] MEDS: INSULIN DETEMIR 100 UNITS/ML VIAL SQ SCH ×2 (09:09→21:00)
[2018-03-05] MEDS: PANTOPRAZOLE SODIUM 40 MG VIAL IVP SCH (09:10)
[2018-03-05] MEDS: FENOFIBRATE 48 MG TAB PO SCH (09:27)
--- NOTE | 2018-03-05 15:16 | PD.OP ---
Operative Report Date of Surgery: Mar 04, 2018 Preoperative Diagnosis: Severe degenerative disk disease and spondylolisthesis Postoperative Diagnosis: Severe degenerative disk disease and spondylolisthesis Procedure: L4-5, L5-S1 laminectomy, interbody arthrodhesis using PEEK cage and autologous bone graft, L4-5, L5-S1 segmental instrumental fixation using transpedicular screws and rods, L4-5, L5-S1 posterolateral fusion using autologous bone graft and rods. Microsurgical dissection Anesthesia: General endotracheal Surgeon: Rubio Kimbrough Soil Conservation Aide(s): Kate Moreland Operation and Findings: INDICATIONS FOR THE SURGICAL PROCEDURE Mr gonzalez is a 77 year-old male who presented with intractable mechanical back pain and allen evidence of lower extremity radiculopathy. He failed maximum nonsurgical management including multiple modalities of conservative treatment as well as pain management interventions by an interventional pain specialist. A surgical decompression and arthrodhesis were indicated as a last resort. The [id number] details of the procedure, indications, alternatives, risks and potential complications were fully discussed with the patient. The patient fully understood. All the questions were answered. No guarantees were given. The patient voiced requesting the procedure and provided informed consents. The patient was offered the alternative of delaying the procedure and continuing with nonsurgical management. DETAILS OF THE SURGICAL PROCEDURE Prior to the procedure, the surgical incision was marked in the preoperative surgical holding room, and the procedure, risks, and potential complications revisited with the patient. Placement of electrodes for intraoperative neurophysiological monitoring was completed. The patient was taken to the operative room, and following induction of general anesthesia, endotracheal intubation was performed. A Vergara catheter, bilateral RAJ hose and sequential compression devices were placed and kept throughout the procedure. The patient was positioned prone, over a Constantino table over a Moreno frame. All pressure in the preoperative surgical holding room points were carefully padded with eggcrate and gel mattress. The eyes were tapped shut after ointment was applied by the anesthesiologist to prevent corneal abrasion. A Chad hugger was placed over the expossed lower body to maintain control of the core body temperature. The electrophysiological team placed the needles and electrodes in their proper location and baseline SSEP's and motor evoked potentials were registered prior and following the positioning. The entrance to each pedicles was marked using a C arm. The lumbar region was prepped and draped in the usual sterile fashion. The surgical procedure was performed in several steps as follow: SURGICAL APPROACH Once the patient was positioned, a localizing cross-table lateral x-ray was performed with a C-arm. Two paramedian small incisions were outlined on the skin approximately 3cm from the midline. The skin incisions were made with a # 10 blade. Small bleeders were controlled with the cautery. The dissection was then carried out into deper planes and through the thoracolumbar fascia with a Bovie. The intermuscular septum was identified and the myscles were blunted dissected along the septum. The facets and transverse process of L4, L5 and S1 were exposed and the proper anatomical landmarks were identidied. A microsurgical self-retaining retractor was placed on the incision, and a localizing lateralizing cross-table x-ray was performed with an instrument underneath a lamina of the lumbar spine. There was instability of the bony structures. INSTRUMENTAL FIXATION At this point in the procedure, placement of bilateral transpedicular screws was necessary for stabilization of the spine. Initially, the entry point for the screw was selected anatomically at the junction of the facet, with the transverse process, and the pars interarticularis at L4, L5 and at the sacrum. This was started with a Giamshetti needle, followed by the use of an conde wire, and then a tap was used to create the threads for the screws. Finally bilateral transpedicular screws were carefully placed bilaterally at L4, L5, and S1 under fluoroscopic visualization. An appropriate purchase was achieved with all screws. The position of each screw was assessed anatomically with an AP, lateral , oblique Xrays. An intraoperative scan view of the spine was then performed using the iso-centric c-arm. Each screw was then assessed electrophysiologically with a nerve stimulator. SURGICAL DECOMPRESSION There was significant mass effect with compression of the neural structures. In order to relieve neural compression, it was necessary to perform a decompressive laminectomy, with decompression of the spinal canal and bilateral lateral recesses. Note that the scope of such decompression was significantly more extensive than the minimal exposure necessary to perform an interbody fusion, as there was extreme facet arthropathy with near complete collapse of the disk spaces and severe stenosis cause by the hyperthrophic joint facets. At this point of the procedure the operative microscope was draped in the usual sterile fashion and brought to the field. The rest of the surgical procedure was performed using microdissection technique with the exception of the closure. Under the operating microscope, a decompressive laminectomy was carried out at L5-S1 as follow: The laminae, base of the spinous processes and facets were carefully drilled exposing the ligamentum flavum. The facets were abnormal with severe facet arthropathy, vacuum facets, and mass effect over the neural structures. A broad disk protusion was contributing to compression of the neural structures and exiting L5, and S1 nerve roots. A near complete facetectomy was necessary resulting in further mechanical instability. The ligamentum flavum appeared hypertrophic, resulting on mass effect on the dorsal surface of the neural structures. The superior free border of the ligamentum flavum was elevated with a ligament dissector and the ligamentum flavum was removed with a 3 and 4 mm Kerrison forceps. The ligament was very adherent to the dural sac and during the dissection, ans extreme care was taken during the dissection. The exiting nerve roots were identified, and a wide foraminotomy was performed with a Kerrison in their trajectory towards the neural foramenat both levels. Epidural veins located laterally to the dural sac were coagulated with the bipolar cautery, and then incised using microscissors. Gentle medial retraction of the dural sac allowed me to expose the disc space for the discectomy. Upon completion of the discectomy, an excellent decompression of the neural structures was achieved. INTERBODY ARTHRODHESIS In order to correct the narrowing of the disk space and maintain distraction of the space, and to achieve a solid interbody fusion, it was necessary the insertion of an interbody device into the disk space. Otherwise, the disk space would collapse, compromising the result of the surgical procedure. At this point of the procedure, the annulus fibrosus of the disk was carefully coagulated with a bipolar cautery and incised using an 11 bladed knife. Then, a microdiscectomy was carried out in a standard fashion using a combination of straight and up-biting pituitary forceps. A reverse angle curette was applied underneath the posterior longitudinal ligament, and used to push the disk fragments into the disk space, so they can be safely removed with a pituitary forceps. Once the discectomy was completed, it was necessary to decorticate the endplates, in order to eliminate the cartilaginous endplate and to expose healthy bone appropriate to perform the interbody fusion. The endplates at L4-5 , and L5-S1 were then thoroughly decorticated using increasing size bone lyubov and ring curets, eliminating the cartilaginous fragments from both, the superior and inferior endplates. A disk space distractor was applied to the pedicle screws and gentle distraction was applied. This maneuver was assisted by the use of a disk distractor. Increased motility was noted at the disk, which was consistent with instability due to facet arthropathy. Once a thorough preparation of the disk space was achieved, the disk space was irrigated with antibiotic solution, and the interbody fusion was performed by carefully impacting PPEK cages filled with autologous bone graft. The use of several shoe impactors with different angulation, allowed me for an excellent, proper position of the interbody cage. A solid position of the cage with good purchase was achieved. The position of the cages were assessed anatomically with a probe and radiologically with the C-arm. POSTEROLATERAL FUSION The posterolateral fusion is a critical component to the procedure, to prevent future fatigue and failure of the instrumental fixation. Initially, the transverse processes of the vertebral bodies, lateral surface of the facets and the lateral gutters of the spine were carefully cleaned, eliminating all soft tissue and muscle attachments. The area was then irrigated with a large amount of antibiotic solution. Subsequently, the transverse processes, lateral surface of the facets, and lateral gutters of the spine were thoroughly decorticated using the TPS drill with a 5mm cutting herrera, exposing cancellous bone, in preparation for the posterolateral fusion. The incision was again irrigated with antibiotic solution. Then, the posterolateral fusion was then performed by carefully packing the lateral gutters of the spine at L4-5, and L5-S1 with autologous bone combined with demineralized bone matrix. I packed as much bone as possible. COMPLETION OF THE INSTRUMENTATION AND CLOSURE The rods were brought to the field, applied to all the screws, and the screw caps were sequentially applied. Compression was performed between the pedicle screws, and final tightening of the screws was completed using a torque wrench. A cross-link was used to connect the rods, in order to increase the stability of the construct. The cross link was secured using a torque wrench previously calibrated. The incision was again thoroughly irrigated with several liters of antibiotic solution, and hemostasis secured with the bipolar cautery. A Valsalva Maneuver performed by the anesthesiologist failed to show any evidence of cerebrospinal fluid leak or bleeding. A 10 mm Fluted Constantino-Schaeffer drain was left in the epidural space and externalized through a separate stab incision. The incision was then closed in planes. 0 Vicryl was used in an interrupted fashion to close the thoracolumbar fascia and the superficial fascia. The subcutaneous tissue was then approximated using 3-0 Vicryl in an interrupted fashion. Special care was taken to avoid space. The skin was then closed with 4-0 Vicryl in a running, subcuticular fashion. Dermabond was applied to the skin. Each plane of closure was irrigated with antibiotic solution. At the end of the procedure the sponge, needle and instrument counts were all correct. Estimated blood loss was 350 to 400 cc or less. No blood transfusion was given. The entire procedure was performed using continuous electrophysiological monitoring of the somatosensorial evoked potentials and EMG. The patient received prophylactic antibiotics. The patient was then extubated and transferred to the recovery room in stable condition. Rubio Kimbrough MD Mar 05, 2018 15:16
[2018-03-05 15:50] LABS: AUTOMATED NEUTROPHIL # 8.1 TH/MM3 (1.8-7.7); BASOPHIL # 0.1 TH/MM3 (0-0.2); BASOPHIL % 0.6 % (0.0-2.0); EOSINOPHIL % 0.3 % (0.0-4.0); HEMATOCRIT 33.7 % (39.0-51.0); HEMOGLOBIN 11.4 GM/DL (13.0-17.0); LYMPH % 7.8 % (9.0-44.0); LYMPHOCYTE # 0.8 TH/MM3 (1.0-4.8); MEAN CELL VOLUME 91.7 FL (80.0-100.0); MEAN CORPUSCULAR HEMOGLOBIN 31.1 PG (27.0-34.0); MEAN CORPUSCULAR HGB CONC 33.9 % (32.0-36.0); MEAN PLATELET VOLUME 9.3 FL (7.0-11.0); MONO % 9.9 % (0.0-8.0); NEUT % 81.4 % (16.0-70.0); PLATELET COUNT 151 TH/MM3 (150-450); RED BLOOD COUNT 3.68 MIL/MM3 (4.50-5.90); RED CELL DISTRIBUTION WIDTH 14.1 % (11.6-17.2); WHITE BLOOD COUNT 9.9 TH/MM3 (4.0-11.0)
[2018-03-05] MEDS ORDERED: ONDANSETRON HCL 4 MG/2 ML VIAL IV PUSH PRN (16:00)
--- NOTE | 2018-03-05 16:05 | HHI.NSPN ---
(Juliana Contreras) Note Status Status: Progress Note (Juliana Contreras) Interval History Interval History Mr. Gaming s/p L4-5, L5-S1 laminectomy, interbody arthrodhesis using PEEK cage and autologous bone graft, L4-5, L5-S1 segmental instrumental fixation using transpedicular screws and rods, L4-5, L5-S1 posterolateral fusion using autologous bone graft and rods. Microsurgical dissection on Mar 04, 2018 for severe degenerative disk disease and spondylolisthesis. 03/05: doing well, moderate surgical pain with movement (Juliana Contreras) Labs, Micro, & Vital Signs Results Date Time Temp Pulse Resp B/P (MAP) Pulse Ox O2 Delivery O2 Flow Rate FiO2 03/05/18 12:00 98.5 82 18 191/74 (113) 91 03/05/18 11:10 97 21 03/05/18 09:31 18 03/05/18 09:11 18 03/05/18 09:01 18 03/05/18 08:00 98.2 67 18 133/54 (80) 92 Arterial Line 03/05/18 07:45 17 03/05/18 06:24 16 03/05/18 04:00 98.0 56 18 155/79 (104) 99 03/05/18 01:30 97.6 58 17 170/77 (108) 97 03/05/18 00:00 97.6 53 19 141/60 (87) 96 Nasal Cannula 2 03/04/18 23:45 49 19 151/67 (95) 99 Nasal Cannula 2 03/04/18 23:30 55 15 160/67 (98) 96 Nasal Cannula 2 03/04/18 23:15 57 18 160/68 (98) 98 Nasal Cannula 2 03/04/18 23:03 18 03/04/18 23:00 53 18 146/63 (90) 99 Nasal Cannula 2 03/04/18 22:45 58 18 160/70 (100) 99 Nasal Cannula 4 03/04/18 22:30 58 17 158/71 (100) 97 Nasal Cannula 4 155/65 (95) 4/11/18 22:15 58 19 97 Nasal Cannula 4 122/64 (83) 03/04/18 22:00 58 14 178/75 (109) 94 Nasal Cannula 4 167/67 (100) 03/04/18 21:45 58 14 95 Nasal Cannula 4 146/62 (90) 03/04/18 21:30 56 15 166/64 (98) 93 Nasal Cannula 4 149/62 (91) 03/04/18 21:15 97.7 57 19 139/70 (93) 96 Nasal Cannula 4 03/06/18 07:00 Output Total 110 ml Balance -110 ml Constitutional Vital Signs Date Time Temp Pulse Resp B/P (MAP) Pulse Ox O2 Delivery O2 Flow Rate FiO2 03/05/18 12:00 98.5 82 18 191/74 (113) 91 03/05/18 11:10 97 21 03/05/18 09:31 18 03/05/18 09:11 18 03/05/18 09:01 18 03/05/18 08:00 98.2 67 18 133/54 (80) 92 Arterial Line 03/05/18 07:45 17 03/05/18 06:24 16 03/05/18 04:00 98.0 56 18 155/79 (104) 99 03/05/18 01:30 97.6 58 17 170/77 (108) 97 03/05/18 00:00 97.6 53 19 141/60 (87) 96 Nasal Cannula 2 03/04/18 23:45 49 19 151/67 (95) 99 Nasal Cannula 2 03/04/18 23:30 55 15 160/67 (98) 96 Nasal Cannula 2 03/04/18 23:15 57 18 160/68 (98) 98 Nasal Cannula 2 03/04/18 23:03 18 03/04/18 23:00 53 18 146/63 (90) 99 Nasal Cannula 2 03/04/18 22:45 58 18 160/70 (100) 99 Nasal Cannula 4 03/04/18 22:30 58 17 158/71 (100) 97 Nasal Cannula 4 155/65 (95) 03/04/18 22:15 58 19 97 Nasal Cannula 4 122/64 (83) 03/04/18 22:00 58 14 178/75 (109) 94 Nasal Cannula 4 167/67 (100) 03/04/18 21:45 58 14 95 Nasal Cannula 4 146/62 (90) 03/04/18 21:30 56 15 166/64 (98) 93 Nasal Cannula 4 149/62 (91) 03/04/18 21:15 97.7 57 19 139/70 (93) 96 Nasal Cannula 4 03/06/18 07:00 Output Total 110 ml Balance -110 ml (Juliana Contreras) Review of Systems Constitutional: DENIES: Fever, Chills Eyes: DENIES: Vision loss Musculoskeletal: COMPLAINS OF: Back pain Neurologic: DENIES: Speech Problems (Juliana Contreras) Physical Exam Mr. Gaming is alert oriented to time, place and person. Speech is fluent. In bed, but appears mildly uncomfortable due to surgical pain. Cranial nerve examination: pupils to be equal, round and reactive to light. Facial motor are normal and symmetrical. Gross hearing appears intact. Motor: moves all major muscle groups of both lower extremities TIFFANY drain with moderate drainage. Ext: no swelling Skin: warm, dry (Juliana Contreras) Medications Current Medications Current Medications Medications (Trade) Dose Ordered Sig/Sanjuana Route PRN Reason Start Time Stop Time Status Last Admin Dose Admin Lactated Ringer's 1,000 ml @ 30 mls/hr Q24H PRN IV SEE LABEL COMMENTS 03/04/18 07:15 03/07/18 07:14 03/04/18 11:00 Sodium Chloride 500 ml @ 30 mls/hr [id number] PRN IV SEE LABEL COMMENTS 03/04/18 07:15 03/07/18 07:14 Metoprolol Tartrate (Lopressor) 25 mg YOUTH SUPPORT WORKER PRN PO SEE LABEL COMMENTS 03/04/18 07:15 03/07/18 07:14 Chlorhexidine Gluconate (Chlorhexidine 2% Cloth) 3 pack YOUTH SUPPORT WORKER PRN TOPICAL SEE LABEL COMMENTS 03/04/18 07:15 03/07/18 07:14 03/04/18 10:00 Vancomycin/Sodium Chloride 200 ml @ 200 mls/hr YOUTH SUPPORT WORKER IV 03/04/18 07:15 03/07/18 07:14 Naloxone HCl (Narcan Inj) 0.4 mg UNSCH PRN IV PUSH RESPIRATORY RATE LESS THAN 10 03/04/18 21:15 Diphenhydramine HCl (Benadryl Inj) 25 mg Q6H PRN IV PUSH ITCHING 03/04/18 21:15 Hydromorphone HCl (Dilaudid LAY HEALTH ADVOCATE Inj) 6 mg UNSCH IV 03/04/18 21:15 03/05/18 09:01 LAY HEALTH ADVOCATE Dosage Infused (Pha) 1 Q8HR .XX 03/04/18 22:00 03/05/18 06:24 Potassium Chloride/Sodium Chloride 1,000 ml @ 50 mls/hr Q20H IV 03/04/18 21:07 03/05/18 07:07 Cefazolin Sodium 2000 mg/Sodium Chloride 100 ml @ 100 mls/hr Q8H IV 03/05/18 01:00 03/05/18 17:59 03/05/18 09:10 Pantoprazole Sodium (Protonix Inj) 40 mg DAILY IVP 03/05/18 09:00 03/05/18 09:10 Morphine Sulfate (Morphine Inj) 2 mg Q2H PRN IV PUSH PAIN SCALE 1 TO 6 03/04/18 21:15 Morphine Sulfate (Morphine Inj) 4 mg Q2H PRN IV PUSH PAIN SCALE 7 TO 10 03/04/18 21:15 03/05/18 09:06 Acetaminophen (Tylenol) 650 mg Q4H PRN PO TEMPERATURE > 101.5 F 03/04/18 21:15 Amlodipine Besylate (Norvasc) 10 mg DAILY PO 03/05/18 09:00 03/05/18 09:08 Atorvastatin Calcium (Lipitor) 40 mg HS PO 03/05/18 21:00 Cholecalciferol (Vitamin D3) 2,000 units DAILY PO 03/05/18 09:00 03/05/18 09:08 Cyanocobalamin (Vitamin B12) 1,000 mcg DAILY PO 03/05/18 09:00 03/05/18 09:08 Doxazosin Mesylate (Cardura) 8 mg HS PO 03/05/18 21:00 Fenofibrate (Tricor) 48 mg DAILY PO 03/05/18 09:00 03/05/18 09:27 Patient Own Medication PT OWN MED: PROSCA... DAILY PO 03/05/18 09:00 Folic Acid (Folate) 1 mg DAILY PO 03/05/18 09:00 03/05/18 09:08 Furosemide (Lasix) 20 mg DAILY PO 03/05/18 09:00 03/05/18 09:08 Gabapentin (Neurontin) 300 mg TID PO 03/05/18 09:00 03/05/18 12:15 Hydralazine HCl (Apresoline) 100 mg TID PO 03/05/18 09:00 03/05/18 12:15 Insulin Detemir (Levemir Inj) 36 units BID SQ 03/05/18 09:00 03/05/18 09:09 Levothyroxine Sodium (Synthroid) 75 mcg DAILY@0700 PO 03/05/18 07:00 03/05/18 06:24 Magnesium Oxide (Mag-Ox) 800 mg BID PO 03/05/18 09:00 03/05/18 09:09 Metoprolol Tartrate (Lopressor) 100 mg BID PO 03/05/18 09:00 03/05/18 09:09 Prednisone (Deltasone) 5 mg DAILY PO 03/05/18 09:00 03/05/18 09:08 Primidone (Mysoline) 50 mg BID PO 03/05/18 09:00 03/05/18 09:06 Propranolol HCl (Inderal) 40 mg DAILY PO 03/05/18 09:00 03/05/18 09:06 Tacrolimus (Prograf) 4 mg Q12H PO 03/04/18 21:15 03/05/18 09:07 Tramadol HCl (Ultram) 50 mg Q4H PRN PO PAIN 03/04/18 21:15 03/05/18 12:15 Multivitamins (Theragran) 1 tab DAILY PO 03/05/18 09:00 03/05/18 09:08 Dextrose (D50w (Vial) Inj) 50 ml UNSCH PRN IV PUSH HYPOGLYCEMIA-SEE COMMENTS 03/04/18 21:15 Glucagon (Glucagon Inj) 1 mg UNSCH PRN OTHER HYPOGLYCEMIA-SEE COMMENTS 03/04/18 21:15 Insulin Aspart (NovoLOG SUPPLEMENTAL SCALE) 1 ACHS SLIDING SCALE SQ 03/05/18 08:00 Miscellaneous Information ALL NURSING DEPARTME... UNSCH PRN .XX SEE LABEL COMMENTS 03/04/18 21:30 03/05/18 21:29 (Juliana Contreras) Medical Decision Making MDM Remarks 77 y/o male L4-5, L5-S1 PLIF 03/04/18 (Juliana Contreras) Plan Plan Remarks Continue postoperative pain control Nursing to replace off the foam dressing due to being saturated SCDs and teds for DVT prophylaxis Protonix for GI prophylaxis IS every hour PT, start mobilizing out of bed with LSO (Juliana Contreras) Attending Statement The exam, history, and the medical decision-making described in the above note were completed with the assistance of the mid-level provider. I reviewed and agree with the findings presented. I attest that I had a [id number] encounter with the patient on the same day, and personally performed and documented my assessment and findings in the medical record. (Rubio Kimbrough MD) Juliana Contreras Mar 05, 2018 16:05 Rubio Kimbrough MD Mar 08, 2018 21:18
[2018-03-05 16:12] LABS: BICARBONATE 23.5 MEQ/L (21.0-32.0); CALCIUM 8.2 MG/DL (8.5-10.1); CREATININE 2.01 MG/DL (0.60-1.30)
[2018-03-05] MEDS ORDERED: cloNIDine HCL 0.1 MG TAB PO PRN (19:45)
--- NOTE | 2018-03-05 19:53 | PD.CONS ---
HPI Service [facility] Consult Requested By Primary Care Physician Vera Saenz MD Diagnoses: History of Present Illness Patient seen Postoperative day one for elective L4-5, L5-S1 laminectomy, interbody arthrodhesis. Patient reports that pain is controlled. Denies any chest pain, shortness of breath, nausea, vomiting, fevers, chills. Says otherwise he is feeling all right. He does report some reflux, says he takes a PPI at home. Reports last bowel movement several days ago. Denies constipation. Review of Systems Except as stated in HPI: all other systems reviewed are Neg Past Family Social History Allergies: Coded Allergies: amoxicillin (Unverified Allergy, Severe, HIVES, 03/04/18) penicillin G (Unverified Allergy, Severe, Anaphylaxis, 03/04/18) PT STATES HE IS ALLERGIC TO AMOXICILLAN AND GETS HIVES FROM IT. latex (Unverified Allergy, Unknown, 03/04/18) povidone-iodine (Unverified Allergy, Unknown, 03/04/18) diatrizoate meglumine (Unverified Adverse Reaction, Severe, Urinary Freq ( Inc/Dec), 03/04/18) PT HAS RENAL TRANSPLANT gadobenic acid (Unverified Adverse Reaction, Severe, Urinary Freq (Inc/Dec ), 03/04/18) PT HAS RENAL TRANSPLANT gadodiamide (Unverified Adverse Reaction, Severe, Urinary Freq (Inc/Dec), 03/04/18) PT HAS RENAL TRANSPLANT gadoteridol (Unverified Adverse Reaction, Severe, Urinary Freq (Inc/Dec), 03/04/18) PT HAS RENAL TRANSPLANT iodixanol (Unverified Adverse Reaction, Severe, Urinary Freq (Inc/Dec), 10/11) PT HAS RENAL TRANSPLANT iohexol (Unverified Adverse Reaction, Severe, Urinary Freq (Inc/Dec), 03/04) PT HAS RENAL TRANSPLANT Past Medical History CHF Coronary artery disease. Recent catheterization reviewed. End-stage renal failure, with renal transplant in 2012 Diabetes mellitus Chronic kidney disease stage IV GERD History of MRSA Hypertension Hyperlipidemia Past Surgical History Kidney transplant 2013 Lithotripsy Left knee surgery Appendectomy Cardiac catheterization Family History Patient reports mother secondary to female cancer. Father with bronchial cancer, reportedly chronic smoker, as well as exposed to asbestos Social History Patient reports she quit smoking 51 years ago Nondrinker Denies illicit drugs Physical Exam Vital Signs Vital Signs Date Time Temp Pulse Resp B/P (MAP) Pulse Ox O2 Delivery O2 Flow Rate FiO2 03/05/18 16:00 99.7 102 18 120/60 (80) 90 03/05/18 12:00 98.5 82 18 191/74 (113) 91 03/05/18 11:10 97 21 03/05/18 09:31 18 03/05/18 09:11 18 03/05/18 09:01 18 03/05/18 08:00 98.2 67 18 133/54 (80) 92 Arterial Line 03/05/18 07:45 17 03/05/18 06:24 16 03/05/18 04:00 98.0 56 18 155/79 (104) 99 03/05/18 01:30 97.6 58 17 170/77 (108) 97 03/05/18 00:00 97.6 53 19 141/60 (87) 96 Nasal Cannula 2 03/04/18 23:45 49 19 151/67 (95) 99 Nasal Cannula 2 03/04/18 23:30 55 15 160/67 (98) 96 Nasal Cannula 2 03/04/18 23:15 57 18 160/68 (98) 98 Nasal Cannula 2 03/04/18 23:03 18 03/04/18 23:00 53 18 146/63 (90) 99 Nasal Cannula 2 03/04/18 22:45 58 18 160/70 (100) 99 Nasal Cannula 4 03/04/18 22:30 58 17 158/71 (100) 97 Nasal Cannula 4 155/65 (95) 03/04/18 22:15 58 19 97 Nasal Cannula 4 122/64 (83) 03/04/18 22:00 58 14 178/75 (109) 94 Nasal Cannula 4 167/67 (100) 03/04/18 21:45 58 14 95 Nasal Cannula 4 146/62 (90) 03/04/18 21:30 56 15 166/64 (98) 93 Nasal Cannula 4 149/62 (91) 03/04/18 21:15 97.7 57 19 139/70 (93) 96 Nasal Cannula 4 Physical Exam GENERAL: This is a well-nourished, well-developed patient, in no apparent distress. SKIN: No rashes, ecchymoses or lesions. Cool and dry. HEAD: Atraumatic. Normocephalic. No temporal or scalp tenderness. EYES: Pupils equal round and reactive. Extraocular motions intact. No scleral icterus. No injection or drainage. ENT: Nose without bleeding, purulent drainage or septal hematoma. Throat without erythema, tonsillar hypertrophy or exudate. Uvula midline. Airway patent. NECK: Trachea midline. No JVD or lymphadenopathy. Supple, nontender, no meningeal signs. CARDIOVASCULAR: Regular rate and rhythm without murmurs, gallops, or rubs. RESPIRATORY: Clear to auscultation. Breath sounds equal bilaterally. No wheezes , rales, or rhonchi. GASTROINTESTINAL: Abdomen soft, non-tender, nondistended. No hepato-splenomegaly , or palpable masses. No guarding. MUSCULOSKELETAL: Extremities without clubbing, cyanosis, or edema. No joint tenderness, effusion, or edema noted. No calf tenderness. Negative Homans sign bilaterally.patient with back brace, TIFFANY drain with serosanguineous fluid. NEUROLOGICAL: Awake and alert. Cranial nerves II through XII intact. Motor and sensory grossly within normal limits. Five out of 5 muscle strength in all muscle groups. Normal speech. Laboratory Laboratory Tests Test 03/05/18 14:44 White Blood Count 9.9 Red Blood Count 3.68 Hemoglobin 11.4 Hematocrit 33.7 Mean Corpuscular Volume 91.7 Mean Corpuscular Hemoglobin 31.1 Mean Corpuscular Hemoglobin Concent 33.9 Red Cell Distribution Width 14.1 Platelet Count 151 Mean Platelet Volume 9.3 Neutrophils (%) (Auto) 81.4 Lymphocytes (%) (Auto) 7.8 Monocytes (%) (Auto) 9.9 Eosinophils (%) (Auto) 0.3 Basophils (%) (Auto) 0.6 Neutrophils # (Auto) 8.1 Lymphocytes # (Auto) 0.8 Monocytes # (Auto) 1.0 Eosinophils # (Auto) 0.0 Basophils # (Auto) 0.1 CBC Comment DIFF FINAL Differential Comment Blood Urea Nitrogen 28 Creatinine 2.01 Random Glucose 145 Calcium Level 8.2 Sodium Level 142 Potassium Level 4.4 Chloride Level 111 Carbon Dioxide Level 23.5 Anion Gap 8 Estimat Glomerular Filtration Rate 32 Tacrolimus (Prograf) Level 9.0 Result Diagram: 03/05/18 1444 03/05/18 1444 Imaging Last Impressions Lumbar Spine X-Ray 03/04/18 0000 Signed Impressions: Service Date/Time: Sunday, March 04, 2018 16:02 - CONCLUSION: 1. Fixation lower lumbar spine as above. Horace Garcia MD Assessment and Plan Assessment and Plan //Postoperative day one L4-5, L5-S1 laminectomy, interbody arthrodhesis using PEEK cage and autologous bone graft, L4-5, L5-S1 segmental instrumental fixation using transpedicular screws and rods, L4-5, L5-S1 posterolateral fusion using autologous bone graft and rods. Microsurgical dissection. = Postoperative management as per surgical service //Diabetes mellitus. Blood sugars acceptable. Continue diabetic diet and insulin sliding scale //GERD. Chronic. Patient reporting reflux. PPI. //Coronary artery disease //Hypertension //Hyperlipidemia = Blood pressure initially acceptable, however has been elevated. = Continue home medications. =expect blood pressure to improve with Cardura tonight. It appears he may have missed Cardura last night and could be rebounding. -Coagulation as per surgical service. = Continue to monitor blood pressure. //Hypothyroidism. Chronic. Continue home medications //CKD stage IV. 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 -Check tacrolimus level = Monitor creatinine closely. /Chronic steroid use. Continue. No signs of adrenal insufficiency at this time //BPH. Continue finasteride Discussed Condition With patient, nurse. Aguilar Riley MD Mar 05, 2018 19:53
[2018-03-05] MEDS ORDERED: MAGNESIUM HYDROXIDE SUSP 30 ML CUP PO ONE (20:30)
[2018-03-05] MEDS ORDERED: DIAZEPAM 5 MG TAB PO PRN (20:30)
[2018-03-05] MEDS ORDERED: DOCUSATE SODIUM 50 MG/SENNA 8.6 MG TAB PO ONE (20:30)
[2018-03-05] MEDS: DOXAZOSIN MESYLATE 4 MG TAB PO SCH (22:49)
[2018-03-05] MEDS: ATORVASTATIN 40 MG TAB PO SCH (22:50)
[2018-03-05] MEDS: SODIUM CHLOR 0.45% 1000 ML INJ 1,000 ML IV SCH (23:58)
[2018-03-06] VITALS (7 sets, daily range): BP systolic 114–162; BP diastolic 62–82; PULSE 59–78; RESP 16–20; TEMP 98–99; O2SAT 84–97
[2018-03-06] MEDS: PCA - TOTAL MG DILAUDID DELIVERED PER SHIFT SCH ×3 (06:00→23:12)
[2018-03-06] MEDS: LEVOTHYROXINE SODIUM 75 MCG TAB PO SCH (06:09)
[2018-03-06] MEDS: traMADol HCL 50 MG TAB PO PRN ×3 (06:10→21:38)
[2018-03-06] MEDS: INSULIN ASPART SUPPLEMENTAL SCALE SQ SCH ×4 (08:00→21:39)
[2018-03-06 08:07] LABS: BASOPHIL # 0.1 TH/MM3 (0-0.2); BASOPHIL % 0.8 % (0.0-2.0); EOSINOPHIL % 0.2 % (0.0-4.0); HEMATOCRIT 28.5 % (39.0-51.0); HEMOGLOBIN 9.8 GM/DL (13.0-17.0); LYMPH % 12.3 % (9.0-44.0); LYMPHOCYTE # 1.2 TH/MM3 (1.0-4.8); MEAN CORPUSCULAR HEMOGLOBIN 31.8 PG (27.0-34.0); MEAN CORPUSCULAR HGB CONC 34.5 % (32.0-36.0); MEAN PLATELET VOLUME 9.5 FL (7.0-11.0); MONO % 11.7 % (0.0-8.0); MONOCYTE # 1.1 TH/MM3 (0-0.9); PLATELET COUNT 130 TH/MM3 (150-450); RED CELL DISTRIBUTION WIDTH 14.4 % (11.6-17.2); WHITE BLOOD COUNT 9.4 TH/MM3 (4.0-11.0)
[2018-03-06 08:43] LABS: BICARBONATE 22.9 MEQ/L (21.0-32.0); CREATININE 2.05 MG/DL (0.60-1.30); MAGNESIUM 2.3 MG/DL (1.5-2.5); PHOSPHORUS 2.7 MG/DL (2.5-4.9)
[2018-03-06] MEDS: PROSCAR PO SCH (09:00)
[2018-03-06] MEDS: GABAPENTIN 300 MG CAP PO SCH ×3 (09:10→18:21)
[2018-03-06] MEDS: FOLIC ACID 1 MG TAB PO SCH (09:10)
[2018-03-06] MEDS: FUROSEMIDE 20 MG TAB PO SCH (09:10)
[2018-03-06] MEDS: PRIMIDONE 50 MG TAB PO SCH ×2 (09:10→21:39)
[2018-03-06] MEDS: FENOFIBRATE 48 MG TAB PO SCH (09:10)
[2018-03-06] MEDS: MAGNESIUM OXIDE 400 MG TAB PO SCH ×2 (09:10→21:39)
[2018-03-06] MEDS: CHOLECALCIFEROL (VIT D3) 1000 UNIT TAB PO SCH (09:11)
[2018-03-06] MEDS: MULTIVITAMIN TAB PO SCH (09:11)
[2018-03-06] MEDS: PANTOPRAZOLE SODIUM 40 MG VIAL IVP SCH (09:11)
[2018-03-06] MEDS: CYANOCOBALAMIN 1,000 MCG TAB PO SCH (09:11)
[2018-03-06] MEDS: predniSONE 5 MG TAB PO SCH (09:11)
[2018-03-06] MEDS: TACROLIMUS 1 MG CAP PO SCH ×2 (09:11→21:39)
[2018-03-06] MEDS: PROPRANOLOL HCL 40 MG TAB PO SCH (09:11)
[2018-03-06] MEDS: METOPROLOL TARTRATE 100 MG TAB PO SCH ×2 (09:11→21:39)
[2018-03-06] MEDS: hydrALAZINE HCL 100 MG TAB PO SCH ×3 (09:11→18:21)
[2018-03-06] MEDS: INSULIN DETEMIR 100 UNITS/ML VIAL SQ SCH ×2 (09:12→21:40)
--- NOTE | 2018-03-06 10:25 | HHI.NSPN ---
(Juliana Contreras) Note Status Status: Progress Note (Juliana Contreras) Interval History Interval History Mr. Gaming s/p L4-5, L5-S1 laminectomy, interbody arthrodhesis using PEEK cage and autologous bone graft, L4-5, L5-S1 segmental instrumental fixation using transpedicular screws and rods, L4-5, L5-S1 posterolateral fusion using autologous bone graft and rods. Microsurgical dissection on Mar 04, 2018 for severe degenerative disk disease and spondylolisthesis. 03/05: doing well, moderate surgical pain with movement 03/06: Sitting up in chair, moderate surgical pain. Continues to use MISSION WORKER, required breakthrough morphine, also on tramadol as needed. Reports prior radicular pain resolved. Denies chest pain, shortness of breath or difficulty breathing. (Juliana Contreras) Labs, Micro, & Vital Signs Results Date Time Temp Pulse Resp B/P (MAP) Pulse Ox O2 Delivery O2 Flow Rate FiO2 03/06/18 08:06 98.3 66 18 116/66 (83) 90 03/06/18 04:00 98.6 66 16 139/62 (87) 84 03/06/18 00:00 67 03/06/18 00:00 99.0 78 16 162/72 (102) 94 03/05/18 22:51 18 03/05/18 22:00 18 03/05/18 21:51 18 03/05/18 20:00 99.3 73 16 160/65 (96) 90 03/05/18 20:00 99.3 73 16 90 03/05/18 16:00 99.7 102 18 120/60 (80) 90 03/05/18 15:21 15 03/05/18 14:00 18 03/05/18 13:15 18 03/05/18 12:00 98.5 82 18 191/74 (113) 91 03/05/18 11:10 97 21 03/07/18 07:00 Output Total 100 ml Balance -100 ml Constitutional Vital Signs Date Time Temp Pulse Resp B/P (MAP) Pulse Ox O2 Delivery O2 Flow Rate FiO2 03/06/18 08:06 98.3 66 18 116/66 (83) 90 03/06/18 04:00 98.6 66 16 139/62 (87) 84 03/06/18 00:00 67 03/06/18 00:00 99.0 78 16 162/72 (102) 94 03/05/18 22:51 18 03/05/18 22:00 18 03/05/18 21:51 18 03/05/18 20:00 99.3 73 16 160/65 (96) 90 03/05/18 20:00 99.3 73 16 90 03/05/18 16:00 99.7 102 18 120/60 (80) 90 03/05/18 15:21 15 03/05/18 14:00 18 03/05/18 13:15 18 03/05/18 12:00 98.5 82 18 191/74 (113) 91 03/05/18 11:10 97 21 03/07/18 07:00 Output Total 100 ml Balance -100 ml (Juliana Contreras) Review of Systems Constitutional: DENIES: Fever, Chills Cardiovascular: DENIES: Chest pain Musculoskeletal: COMPLAINS OF: Back pain (Juliana Contreras) Physical Exam Mr. Gaming is alert, awake and oriented to time, place and person. Speech is fluent. Sitting up in chair in no acute distress appears mildly uncomfortable due to surgical pain Cranial nerve examination: pupils to be equal, round and reactive to light. Facial motor are normal and symmetrical. Gross hearing appears intact. Motor: moves all major muscle groups of both lower extremities TIFFANY drain with moderate drainage Ext: no swelling Skin: warm, dry (Juliana Contreras) Medications Current Medications Current Medications Medications (Trade) Dose Ordered Sig/Sanjuana Route PRN Reason Start Time Stop Time Status Last Admin Dose Admin Sodium Chloride 500 ml @ 30 mls/hr [id number] PRN IV SEE LABEL COMMENTS 03/04/18 07:15 03/07/18 07:14 Metoprolol Tartrate (Lopressor) 25 mg CLINICAL ABSTRACTOR PRN PO SEE LABEL COMMENTS 03/04/18 07:15 03/07/18 07:14 Chlorhexidine Gluconate (Chlorhexidine 2% Cloth) 3 pack CLINICAL ABSTRACTOR PRN TOPICAL SEE LABEL COMMENTS 03/04/18 07:15 03/07/18 07:14 03/04/18 10:00 Vancomycin/Sodium Chloride 200 ml @ 200 mls/hr CLINICAL ABSTRACTOR IV 03/04/18 07:15 03/07/18 07:14 Naloxone HCl (Narcan Inj) 0.4 mg UNSCH PRN IV PUSH RESPIRATORY RATE LESS THAN 10 03/04/18 21:15 Diphenhydramine HCl (Benadryl Inj) 25 mg Q6H PRN IV PUSH ITCHING 03/04/18 21:15 Hydromorphone HCl (Dilaudid MISSION WORKER Inj) 6 mg UNSCH IV 03/04/18 21:15 03/05/18 21:51 MISSION WORKER Dosage Infused (Pha) 1 Q8HR .XX 03/04/18 22:00 03/05/18 22:00 Pantoprazole Sodium (Protonix Inj) 40 mg DAILY IVP 03/05/18 09:00 03/06/18 09:11 Morphine Sulfate (Morphine Inj) 2 mg Q2H PRN IV PUSH PAIN SCALE 1 TO 6 03/04/18 21:15 Morphine Sulfate (Morphine Inj) 4 mg Q2H PRN IV PUSH PAIN SCALE 7 TO 10 03/04/18 21:15 03/05/18 15:16 Acetaminophen (Tylenol) 650 mg Q4H PRN PO TEMPERATURE > 101.5 F 03/04/18 21:15 Amlodipine Besylate (Norvasc) 10 mg DAILY PO 03/05/18 09:00 03/05/18 09:08 Atorvastatin Calcium (Lipitor) 40 mg HS PO 03/05/18 21:00 03/05/18 22:50 Cholecalciferol (Vitamin D3) 2,000 units DAILY PO 03/05/18 09:00 03/06/18 09:11 Cyanocobalamin (Vitamin B12) 1,000 mcg DAILY PO 03/05/18 09:00 03/06/18 09:11 Doxazosin Mesylate (Cardura) 8 mg HS PO 03/05/18 21:00 03/05/18 22:49 Fenofibrate (Tricor) 48 mg DAILY PO 03/05/18 09:00 03/06/18 09:10 Patient Own Medication PT OWN MED: PROSCA... DAILY PO 03/05/18 09:00 Folic Acid (Folate) 1 mg DAILY PO 03/05/18 09:00 03/06/18 09:10 Furosemide (Lasix) 20 mg DAILY PO 03/05/18 09:00 03/06/18 09:10 Gabapentin (Neurontin) 300 mg TID PO 03/05/18 09:00 03/06/18 09:10 Hydralazine HCl (Apresoline) 100 mg TID PO 03/05/18 09:00 03/06/18 09:11 Insulin Detemir (Levemir Inj) 36 units BID SQ 03/05/18 09:00 03/06/18 09:12 Levothyroxine Sodium (Synthroid) 75 mcg DAILY@0700 PO 03/05/18 07:00 03/06/18 06:09 Magnesium Oxide (Mag-Ox) 800 mg BID PO 03/05/18 09:00 03/06/18 09:10 Metoprolol Tartrate (Lopressor) 100 mg BID PO 03/05/18 09:00 03/06/18 09:11 Prednisone (Deltasone) 5 mg DAILY PO 03/05/18 09:00 03/06/18 09:11 Primidone (Mysoline) 50 mg BID PO 03/05/18 09:00 03/06/18 09:10 Propranolol HCl (Inderal) 40 mg DAILY PO 03/05/18 09:00 03/06/18 09:11 Tacrolimus (Prograf) 4 mg Q12H PO 03/04/18 21:15 03/06/18 09:11 Tramadol HCl (Ultram) 50 mg Q4H PRN PO PAIN 03/04/18 21:15 03/06/18 06:10 Multivitamins (Theragran) 1 tab DAILY PO 03/05/18 09:00 03/06/18 09:11 Dextrose (D50w (Vial) Inj) 50 ml UNSCH PRN IV PUSH HYPOGLYCEMIA-SEE COMMENTS 03/04/18 21:15 Glucagon (Glucagon Inj) 1 mg UNSCH PRN OTHER HYPOGLYCEMIA-SEE COMMENTS 03/04/18 21:15 Insulin Aspart (NovoLOG SUPPLEMENTAL SCALE) 1 ACHS SLIDING SCALE SQ 03/05/18 08:00 03/05/18 21:00 Ondansetron HCl (Zofran Inj) 4 mg Q6HR PRN IV PUSH nausea/vomiting 03/05/18 16:00 Sodium Chloride 1,000 ml @ 42 mls/hr [id number] IV 03/05/18 20:30 03/05/18 23:58 Diazepam (Valium) 5 mg Q8H PRN PO MUSCLE SPASM 03/05/18 20:30 03/05/18 22:50 (Juliana Contreras) Medical Decision Making MDM Remarks 77 y/o male L4-5, L5-S1 PLIF 03/04/18 (Juliana Contreras) Plan Plan Remarks cont postoperative pain with MISSION WORKER, continue PT, LSO when out of bed IS every hour SCDs and teds for DVT prophylaxis Protonix for GI prophylaxis DC Vergara Continue TIFFANY draining today, DC tomorrow Discussed with nursing to continue monitor wound dressing (Juliana Contreras) Attending Statement The exam, history, and the medical decision-making described in the above note were completed with the assistance of the mid-level provider. I reviewed and agree with the findings presented. I attest that I had a [id number] encounter with the patient on the same day, and personally performed and documented my assessment and findings in the medical record. (Rubio Kimbrough MD) Juliana Contreras Mar 06, 2018 10:25 Rubio Kimbrough MD Mar 08, 2018 21:17
[2018-03-06] MEDS: HYDROmorphone HCL PCA 6 MG/30 ML IV SCH (12:18)
--- NOTE | 2018-03-06 16:24 | HHI.PR ---
Subjective Remarks Patient seen today around noon. Sleeping, wakes up for exam. Denies any chest pain or shortness of breath. Reports nausea from yesterday has resolved. No bowel movements yet. Received laxatives. Objective Vital Signs Date Time Temp Pulse Resp B/P (MAP) Pulse Ox O2 Delivery O2 Flow Rate FiO2 03/06/18 12:18 15 03/06/18 12:00 98.6 67 18 114/82 (93) 97 03/06/18 08:06 98.3 66 18 116/66 (83) 90 03/06/18 04:00 98.6 66 16 139/62 (87) 84 03/06/18 00:00 67 03/06/18 00:00 99.0 78 16 162/72 (102) 94 03/05/18 22:51 18 03/05/18 22:00 18 03/05/18 21:51 18 03/05/18 20:00 99.3 73 16 160/65 (96) 90 03/05/18 20:00 99.3 73 16 90 I/O 03/05/18 03/05/18 03/05/18 03/06/18 03/06/18 03/06/18 07:00 15:00 23:00 07:00 15:00 23:00 Intake Total 150 ml 500 ml Output Total 700 ml 560 ml 90 ml 100 ml Balance -550 ml -560 ml -90 ml 500 ml -100 ml Intake Oral 150 ml IV Total 500 ml Output Urine Total 550 ml 450 ml Drainage Total 150 ml 110 ml 90 ml 100 ml # Bowel Movements 0 0 Result Diagram: 03/06/18 0643 03/06/18 0643 Objective Remarks GENERAL: Patient lying in bed. Appears comfortable. SKIN: Warm and dry. HEAD: Normocephalic. EYES: No scleral icterus. No injection or drainage. NECK: Supple, trachea midline. No JVD . CARDIOVASCULAR: Regular rate and rhythm without murmurs, gallops, or rubs. RESPIRATORY: Breath sounds equal bilaterally. No accessory muscle use. GASTROINTESTINAL: Abdomen soft, non-tender, nondistended. MUSCULOSKELETAL: No cyanosis, or edema. BACK: Nontender without obvious deformity. No CVA tenderness. A/P Assessment and Plan //Postoperative day 2- L4-5, L5-S1 laminectomy, interbody arthrodhesis using PEEK cage and autologous bone graft, L4-5, L5-S1 segmental instrumental fixation using transpedicular screws and rods, L4-5, L5-S1 posterolateral fusion using autologous bone graft and rods. Microsurgical dissection. = Postoperative management as per surgical service //Postoperative constipation. Status post laxatives. Await return of bowel function. //Diabetes mellitus. Blood sugars continue acceptable. Continue diabetic diet and insulin sliding scale //GERD. Chronic. Patient reporting reflux. Continue PPI. //Coronary artery disease //Hypertension //Hyperlipidemia = Blood pressure initially acceptable, however has been elevated. = Continue home medications. =expect blood pressure to improve with Cardura tonight. It appears he may have missed Cardura last night and could be rebounding. -Coagulation as per surgical service. = Pressures acceptable. Continue to monitor. //Hypothyroidism. Chronic. Continue home medications //CKD stage IV. //Status post kidney transplant in 2012 -Dr. Yoo is patient's high climber -Creatinine around previous baseline. -Check tacrolimus level = Creatinine stable 2.05. Continue to monitor. /Chronic steroid use. Continue. No signs of adrenal insufficiency at this time //BPH. Continue finasteride Discharge Planning As per surgical service. We will continue to follow. Aguilar Riley MD Mar 06, 2018 16:24
[2018-03-06] MEDS ORDERED: DOCUSATE SODIUM 50 MG/SENNA 8.6 MG TAB PO ONE (16:30)
[2018-03-06] MEDS: DOXAZOSIN MESYLATE 4 MG TAB PO SCH (21:38)
[2018-03-06] MEDS: ATORVASTATIN 40 MG TAB PO SCH (21:39)
[2018-03-06] MEDS: SODIUM CHLOR 0.45% 1000 ML INJ 1,000 ML IV SCH (23:40)
[2018-03-07] VITALS (11 sets, daily range): BP systolic 125–160; BP diastolic 58–72; PULSE 63–75; RESP 16–20; TEMP 97.6–98.5; O2SAT 90–97
[2018-03-07] MEDS: traMADol HCL 50 MG TAB PO PRN ×2 (03:54→16:55)
[2018-03-07] MEDS: HYDROmorphone HCL PCA 6 MG/30 ML IV SCH ×2 (05:17→17:02)
[2018-03-07] MEDS: LEVOTHYROXINE SODIUM 75 MCG TAB PO SCH (06:31)
[2018-03-07] MEDS: PCA - TOTAL MG DILAUDID DELIVERED PER SHIFT SCH ×2 (06:32→13:04)
[2018-03-07] MEDS: GABAPENTIN 300 MG CAP PO SCH ×3 (07:48→16:55)
[2018-03-07] MEDS: TACROLIMUS 1 MG CAP PO SCH ×2 (07:48→20:16)
[2018-03-07] MEDS: PROPRANOLOL HCL 40 MG TAB PO SCH (07:48)
[2018-03-07] MEDS: MULTIVITAMIN TAB PO SCH (07:49)
[2018-03-07] MEDS: FENOFIBRATE 48 MG TAB PO SCH (07:49)
[2018-03-07] MEDS: PRIMIDONE 50 MG TAB PO SCH ×2 (07:49→20:16)
[2018-03-07] MEDS: CYANOCOBALAMIN 1,000 MCG TAB PO SCH (07:49)
[2018-03-07] MEDS: FUROSEMIDE 20 MG TAB PO SCH (07:49)
[2018-03-07] MEDS: METOPROLOL TARTRATE 100 MG TAB PO SCH ×2 (07:49→20:16)
[2018-03-07] MEDS: FOLIC ACID 1 MG TAB PO SCH (07:49)
[2018-03-07] MEDS: CHOLECALCIFEROL (VIT D3) 1000 UNIT TAB PO SCH (07:49)
[2018-03-07] MEDS: predniSONE 5 MG TAB PO SCH (07:49)
[2018-03-07] MEDS: hydrALAZINE HCL 100 MG TAB PO SCH ×3 (07:49→16:56)
[2018-03-07] MEDS: PANTOPRAZOLE SOD 40 MG DELAYED RELEASE TAB PO SCH (07:49)
[2018-03-07] MEDS: INSULIN ASPART SUPPLEMENTAL SCALE SQ SCH ×4 (07:50→20:40)
[2018-03-07] MEDS: MAGNESIUM OXIDE 400 MG TAB PO SCH ×2 (07:50→20:17)
[2018-03-07] MEDS: INSULIN DETEMIR 100 UNITS/ML VIAL SQ SCH ×2 (07:50→20:40)
[2018-03-07] MEDS: PROSCAR PO SCH (07:50)
[2018-03-07 09:32] LABS: BICARBONATE 24.2 MEQ/L (21.0-32.0); CALCIUM 8.2 MG/DL (8.5-10.1); CREATININE 2.35 MG/DL (0.60-1.30); MAGNESIUM 2.5 MG/DL (1.5-2.5); PHOSPHORUS 2.3 MG/DL (2.5-4.9)
[2018-03-07] MEDS ORDERED: MAGNESIUM HYDROXIDE SUSP 30 ML CUP PO PRN (12:30)
--- NOTE | 2018-03-07 12:34 | HHI.NSPN ---
(Juliana Contreras) Note Status Status: Progress Note (Juliana Contreras) Interval History Interval History Mr. Gaming s/p L4-5, L5-S1 laminectomy, interbody arthrodhesis using PEEK cage and autologous bone graft, L4-5, L5-S1 segmental instrumental fixation using transpedicular screws and rods, L4-5, L5-S1 posterolateral fusion using autologous bone graft and rods. Microsurgical dissection on Mar 04, 2018 for severe degenerative disk disease and spondylolisthesis. 03/05: doing well, moderate surgical pain with movement 03/06: Sitting up in chair, moderate surgical pain. Continues to use RADIO TESTER, required breakthrough morphine, also on tramadol as needed. Reports prior radicular pain resolved. Denies chest pain, shortness of breath or difficulty breathing. 03/07: Reports some difficulty with urination, surgical pain slowly improving, just returned from ambulating with PT. Very minimal drainage from TIFFANY (Juliana Contreras) Labs, Micro, & Vital Signs Results Date Time Temp Pulse Resp B/P (MAP) Pulse Ox O2 Delivery O2 Flow Rate FiO2 03/07/18 10:22 66 03/07/18 07:57 90 Room Air 03/07/18 07:37 98.4 68 16 153/67 (95) 90 03/07/18 07:26 18 03/07/18 06:32 18 03/07/18 05:17 18 03/07/18 04:00 70 03/07/18 03:00 98.0 70 20 141/65 (90) 91 03/07/18 00:40 97.6 75 20 160/72 (101) 97 03/07/18 00:00 63 03/06/18 23:14 95 Room Air 03/06/18 23:12 18 03/06/18 22:15 95 Nasal Cannula 1.00 03/06/18 21:50 98.0 74 20 156/76 (102) 94 03/06/18 21:00 95 Nasal Cannula 2.00 03/06/18 20:00 96 Nasal Cannula 3.00 03/06/18 16:30 98.9 59 18 129/64 (85) 97 03/06/18 14:00 18 03/08/18 07:00 Output Total 175 ml Balance -175 ml Constitutional Vital Signs Date Time Temp Pulse Resp B/P (MAP) Pulse Ox O2 Delivery O2 Flow Rate FiO2 03/07/18 10:22 66 03/07/18 07:57 90 Room Air 03/07/18 07:37 98.4 68 16 153/67 (95) 90 03/07/18 07:26 18 03/07/18 06:32 18 03/07/18 05:17 18 03/07/18 04:00 70 03/07/18 03:00 98.0 70 20 141/65 (90) 91 03/07/18 00:40 97.6 75 20 160/72 (101) 97 03/07/18 00:00 63 03/06/18 23:14 95 Room Air 03/06/18 23:12 18 03/06/18 22:15 95 Nasal Cannula 1.00 03/06/18 21:50 98.0 74 20 156/76 (102) 94 03/06/18 21:00 95 Nasal Cannula 2.00 03/06/18 20:00 96 Nasal Cannula 3.00 03/06/18 16:30 98.9 59 18 129/64 (85) 97 03/06/18 14:00 18 03/08/18 07:00 Output Total 175 ml Balance -175 ml (Juliana Contreras) Review of Systems Constitutional: DENIES: Fever, Chills Musculoskeletal: COMPLAINS OF: Back pain (Juliana Contreras) Physical Exam Mr. Gaming is alert oriented to time, place and person. Speech is fluent. Cranial nerve examination: pupils to be equal, round and reactive to light. Facial motor are normal and symmetrical. Gross hearing appears intact. Motor: moves all major muscle groups of both lower extremities TIFFANY drain with minimal drainage. Ext: no swelling Skin: warm, dry Gait: Seen ambulated with assistance with PT (Juliana Contreras) Medications Current Medications Current Medications Medications (Trade) Dose Ordered Sig/Sanjuana Route PRN Reason Start Time Stop Time Status Last Admin Dose Admin Naloxone HCl (Narcan Inj) 0.4 mg UNSCH PRN IV PUSH RESPIRATORY RATE LESS THAN 10 03/04/18 21:15 Diphenhydramine HCl (Benadryl Inj) 25 mg Q6H PRN IV PUSH ITCHING 03/04/18 21:15 Hydromorphone HCl (Dilaudid RADIO TESTER Inj) 6 mg UNSCH IV 03/04/18 21:15 03/07/18 05:17 RADIO TESTER Dosage Infused (Pha) 1 Q8HR .XX 03/04/18 22:00 03/07/18 06:32 Morphine Sulfate (Morphine Inj) 2 mg Q2H PRN IV PUSH PAIN SCALE 1 TO 6 03/04/18 21:15 Morphine Sulfate (Morphine Inj) 4 mg Q2H PRN IV PUSH PAIN SCALE 7 TO 10 03/04/18 21:15 03/05/18 15:16 Acetaminophen (Tylenol) 650 mg Q4H PRN PO TEMPERATURE > 101.5 F 03/04/18 21:15 Amlodipine Besylate (Norvasc) 10 mg DAILY PO 03/05/18 09:00 03/07/18 07:48 Atorvastatin Calcium (Lipitor) 40 mg HS PO 03/05/18 21:00 03/06/18 21:39 Cholecalciferol (Vitamin D3) 2,000 units DAILY PO 03/05/18 09:00 03/07/18 07:49 Cyanocobalamin (Vitamin B12) 1,000 mcg DAILY PO 03/05/18 09:00 03/07/18 07:49 Doxazosin Mesylate (Cardura) 8 mg HS PO 03/05/18 21:00 03/06/18 21:38 Fenofibrate (Tricor) 48 mg DAILY PO 03/05/18 09:00 03/07/18 07:49 Patient Own Medication PT OWN MED: PROSCA... DAILY PO 03/05/18 09:00 Folic Acid (Folate) 1 mg DAILY PO 03/05/18 09:00 03/07/18 07:49 Furosemide (Lasix) 20 mg DAILY PO 03/05/18 09:00 03/07/18 07:49 Gabapentin (Neurontin) 300 mg TID PO 03/05/18 09:00 03/07/18 07:48 Hydralazine HCl (Apresoline) 100 mg TID PO 03/05/18 09:00 03/07/18 07:49 Insulin Detemir (Levemir Inj) 36 units BID SQ 4/12/18 09:00 03/07/18 07:50 Levothyroxine Sodium (Synthroid) 75 mcg DAILY@0700 PO 03/05/18 07:00 03/07/18 06:31 Magnesium Oxide (Mag-Ox) 800 mg BID PO 03/05/18 09:00 03/07/18 07:50 Metoprolol Tartrate (Lopressor) 100 mg BID PO 03/05/18 09:00 03/07/18 07:49 Prednisone (Deltasone) 5 mg DAILY PO 03/05/18 09:00 03/07/18 07:49 Primidone (Mysoline) 50 mg BID PO 03/05/18 09:00 03/07/18 07:49 Propranolol HCl (Inderal) 40 mg DAILY PO 03/05/18 09:00 03/07/18 07:48 Tacrolimus (Prograf) 4 mg Q12H PO 03/04/18 21:15 03/07/18 07:48 Tramadol HCl (Ultram) 50 mg Q4H PRN PO PAIN 03/04/18 21:15 03/07/18 03:54 Multivitamins (Theragran) 1 tab DAILY PO 03/05/18 09:00 03/07/18 07:49 Dextrose (D50w (Vial) Inj) 50 ml UNSCH PRN IV PUSH HYPOGLYCEMIA-SEE COMMENTS 03/04/18 21:15 Glucagon (Glucagon Inj) 1 mg UNSCH PRN OTHER HYPOGLYCEMIA-SEE COMMENTS 03/04/18 21:15 Insulin Aspart (NovoLOG SUPPLEMENTAL SCALE) 1 ACHS SLIDING SCALE SQ 03/05/18 08:00 03/06/18 21:39 Ondansetron HCl (Zofran Inj) 4 mg Q6HR PRN IV PUSH nausea/vomiting 03/05/18 16:00 Sodium Chloride 1,000 ml @ 42 mls/hr [id number] IV 03/05/18 20:30 03/06/18 23:40 Diazepam (Valium) 5 mg Q8H PRN PO MUSCLE SPASM 03/05/18 20:30 03/05/18 22:50 Pantoprazole Sodium (Protonix) 40 mg DAILY PO 03/07/18 09:00 03/07/18 07:49 Magnesium Hydroxide (Milk Of Magnesia Liq) 30 ml DAILY PRN PO constipation 03/07/18 12:30 Enoxaparin Sodium (Lovenox Inj) 40 mg Q24H SQ 03/07/18 13:00 (Juliana Contreras) Medical Decision Making MDM Remarks 77 y/o male L4-5, L5-S1 PLIF 03/04/18 (Juliana Contreras) Plan Plan Remarks Surgical pain improving, continue pain control SCDs and teds for DVT prophylaxis, Dr. Kimbrough cleared to start subcutaneous Lovenox Protonix for GI prophylaxis IS every hour Continue PT, increased mobilization out of bed with LSO DC TIFFANY drain Laxatives for constipation Continue bladder scanning as needed for retention, straight cath as needed, will monitor (Juliana Contreras) Attending Statement The exam, history, and the medical decision-making described in the above note were completed with the assistance of the mid-level provider. I reviewed and agree with the findings presented. I attest that I had a [id number] encounter with the patient on the same day, and personally performed and documented my assessment and findings in the medical record. (Rubio Kimbrough MD) Juliana Contreras Mar 07, 2018 12:34 Rubio Kimbrough MD Mar 08, 2018 21:23
[2018-03-07] MEDS ORDERED: ENOXAPARIN SODIUM 40 MG/0.4 ML SYRINGE SQ SCH (13:00)
--- NOTE | 2018-03-07 15:03 | PD.CONS ---
HPI Service Nephrology Consult Requested By Reason for Consult s/p renal transplant, CKD Primary Care Physician Vera Saenz MD History of Present Illness This is a 77 year old male who is s/p diseased donor renal transplant in 2012. He reports that his baseline creatinine is around 1.7, but in October last year as well as November this year it was around 2.3-2.4. His is s/p L4-5, L5-S1 laminectomy, interbody arthrodhesis. Complains of some back pain. Non oliguric. Undergoing therapy when I saw him. Review of Systems Constitutional: COMPLAINS OF: Fatigue Respiratory: DENIES: Wheezing Cardiovascular: DENIES: Chest pain, Palpitations Gastrointestinal: DENIES: Abdominal pain, Black stools Musculoskeletal: COMPLAINS OF: Back pain, DENIES: Joint pain, Neck pain Hematologic/lymphatic: DENIES: Bruising Immunologic/allergic: DENIES: Eczema Psychiatric: DENIES: Anxiety Past Family Social History Allergies: Coded Allergies: amoxicillin (Unverified Allergy, Severe, HIVES, 03/04/18) penicillin G (Unverified Allergy, Severe, Anaphylaxis, 03/04/18) PT STATES HE IS ALLERGIC TO AMOXICILLAN AND GETS HIVES FROM IT. latex (Unverified Allergy, Unknown, 03/04/18) povidone-iodine (Unverified Allergy, Unknown, 03/04/18) diatrizoate meglumine (Unverified Adverse Reaction, Severe, Urinary Freq ( Inc/Dec), 03/04/18) PT HAS RENAL TRANSPLANT gadobenic acid (Unverified Adverse Reaction, Severe, Urinary Freq (Inc/Dec ), 03/04/18) PT HAS RENAL TRANSPLANT gadodiamide (Unverified Adverse Reaction, Severe, Urinary Freq (Inc/Dec), 03/04/18) PT HAS RENAL TRANSPLANT gadoteridol (Unverified Adverse Reaction, Severe, Urinary Freq (Inc/Dec), 03/04/18) PT HAS RENAL TRANSPLANT iodixanol (Unverified Adverse Reaction, Severe, Urinary Freq (Inc/Dec), 10/11) PT HAS RENAL TRANSPLANT iohexol (Unverified Adverse Reaction, Severe, Urinary Freq (Inc/Dec), 03/04) PT HAS RENAL TRANSPLANT Past Medical History s/p renal transplant stage III to IV CKD. History of diabetes. History of skin cancers: basal cell cancer hypertension obesity. GERD Past Surgical History Kidney transplant 2013 Lithotripsy Left knee surgery Appendectomy Cardiac catheterization Active Ordered Medications Current Medications Medications (Trade) Dose Ordered Sig/Sanjuana Route Start Time Stop Time Status Last Admin (Narcan Inj) 0.4 mg UNSCH PRN IV PUSH 03/04/18 21:15 (Benadryl Inj) 25 mg Q6H PRN IV PUSH 03/04/18 21:15 (Dilaudid WOOD PILER Inj) 6 mg UNSCH IV 03/04/18 21:15 03/07/18 05:17 WOOD PILER Dosage Infused (Pha) 1 Q8HR .XX 03/04/18 22:00 03/07/18 13:04 (Morphine Inj) 2 mg Q2H PRN IV PUSH 03/04/18 21:15 (Morphine Inj) 4 mg Q2H PRN IV PUSH 03/04/18 21:15 03/05/18 15:16 (Tylenol) 650 mg Q4H PRN PO 03/04/18 21:15 (Norvasc) 10 mg DAILY PO 03/05/18 09:00 03/07/18 07:48 (Lipitor) 40 mg HS PO 03/05/18 21:00 03/06/18 21:39 (Vitamin D3) 2,000 units DAILY PO 03/05/18 09:00 03/07/18 07:49 (Vitamin B12) 1,000 mcg DAILY PO 03/05/18 09:00 03/07/18 07:49 (Cardura) 8 mg HS PO 03/05/18 21:00 03/06/18 21:38 (Tricor) 48 mg DAILY PO 03/05/18 09:00 03/07/18 07:49 Patient Own Medication PT OWN MED: PROSCA... DAILY PO 03/05/18 09:00 (Folate) 1 mg DAILY PO 03/05/18 09:00 03/07/18 07:49 (Lasix) 20 mg DAILY PO 03/05/18 09:00 03/07/18 07:49 (Neurontin) 300 mg TID PO 03/05/18 09:00 03/07/18 13:03 (Apresoline) 100 mg TID PO 03/05/18 09:00 03/07/18 13:03 (Levemir Inj) 36 units BID SQ 03/05/18 09:00 03/07/18 07:50 (Synthroid) 75 mcg DAILY@0700 PO 03/05/18 07:00 03/07/18 06:31 (Mag-Ox) 800 mg BID PO 03/05/18 09:00 03/07/18 07:50 (Lopressor) 100 mg BID PO 03/05/18 09:00 03/07/18 07:49 (Deltasone) 5 mg DAILY PO 03/05/18 09:00 03/07/18 07:49 (Mysoline) 50 mg BID PO 03/05/18 09:00 03/07/18 07:49 (Inderal) 40 mg DAILY PO 03/05/18 09:00 03/07/18 07:48 (Prograf) 4 mg Q12H PO 03/04/18 21:15 03/07/18 07:48 (Ultram) 50 mg Q4H PRN PO 03/04/18 21:15 03/07/18 03:54 (Theragran) 1 tab DAILY PO 03/05/18 09:00 03/07/18 07:49 (D50w (Vial) Inj) 50 ml UNSCH PRN IV PUSH 03/04/18 21:15 (Glucagon Inj) 1 mg UNSCH PRN OTHER 03/04/18 21:15 (NovoLOG SUPPLEMENTAL SCALE) 1 ACHS SLIDING SCALE SQ 03/05/18 08:00 03/06/18 21:39 (Zofran Inj) 4 mg Q6HR PRN IV PUSH 03/05/18 16:00 03/07/18 13:09 Sodium Chloride 1,000 ml @ 42 mls/hr [id number] IV 03/05/18 20:30 03/06/18 23:40 (Valium) 5 mg Q8H PRN PO 03/05/18 20:30 03/05/18 22:50 (Protonix) 40 mg DAILY PO 03/07/18 09:00 03/07/18 07:49 (Milk Of Magnesia Liq) 30 ml DAILY PRN PO 03/07/18 12:30 (Lovenox Inj) 40 mg Q24H SQ 03/07/18 13:00 03/07/18 13:03 Family History family history of cancers. Social History Quit smoking 50 years ago. Physical Exam Vital Signs Vital Signs Date Time Temp Pulse Resp B/P (MAP) Pulse Ox O2 Delivery O2 Flow Rate FiO2 03/07/18 14:26 65 03/07/18 13:04 16 03/07/18 10:22 66 03/07/18 07:57 90 Room Air 03/07/18 07:37 98.4 68 16 153/67 (95) 90 03/07/18 07:26 18 03/07/18 06:32 18 03/07/18 05:17 18 03/07/18 04:00 70 03/07/18 03:00 98.0 70 20 141/65 (90) 91 03/07/18 00:40 97.6 75 20 160/72 (101) 97 03/07/18 00:00 63 03/06/18 23:14 95 Room Air 03/06/18 23:12 18 03/06/18 22:15 95 Nasal Cannula 1.00 03/06/18 21:50 98.0 74 20 156/76 (102) 94 03/06/18 21:00 95 Nasal Cannula 2.00 03/06/18 20:00 96 Nasal Cannula 3.00 03/06/18 16:30 98.9 59 18 129/64 (85) 97 Physical Exam GENERAL: obese, alert, SKIN: Warm and dry. HEAD: Normocephalic. EYES: No scleral icterus. No injection or drainage. NECK: Supple, trachea midline. No JVD or lymphadenopathy. CARDIOVASCULAR: Regular rate and rhythm without murmurs, gallops, or rubs. RESPIRATORY: Breath sounds equal bilaterally. No accessory muscle use. GASTROINTESTINAL: Abdomen soft, non-tender, nondistended. MUSCULOSKELETAL: No cyanosis, or edema. BACK: Nontender without obvious deformity. No CVA tenderness. Back surgery Laboratory Laboratory Tests Test 03/07/18 08:50 Blood Urea Nitrogen 34 Creatinine 2.35 Random Glucose 100 Albumin 3.0 Calcium Level 8.2 Phosphorus Level 2.3 Magnesium Level 2.5 Sodium Level 136 Potassium Level 4.4 Chloride Level 104 Carbon Dioxide Level 24.2 Anion Gap 8 Estimat Glomerular Filtration Rate 27 Tacrolimus (Prograf) Level 3.9 Result Diagram: 03/06/18 0643 03/07/18 0850 Assessment and Plan Problem List: (1) Kidney transplant status, cadaveric ICD Codes: Z94.0 - Kidney transplant status Status: Acute Plan: He is on Tacrolimus and Prednisone which are being continued. Obtain Tacrolimus level. Avoid NSAIDs and other nephrotoxic agents. Monitor urine output and renal function. (2) Acute on chronic renal insufficiency ICD Codes: N28.9 - Disorder of kidney and ureter, unspecified; N18.9 - Chronic kidney disease, unspecified Status: Acute Plan: He reports that his baseline creatinine is around 1.7, but as mentioned above, his creatinine was around 2.3-2.4 in last October and earlier this year. Continue cautious hydration. Obtain Tacrolimus level. If renal function worsens, obtain US of the transplanted kidney. (3) Hypertension ICD Codes: I10 - Essential (primary) hypertension Status: Acute Plan: Continue current medications. Monitor. (4) IDDM (insulin dependent diabetes mellitus) ICD Codes: E11.9 - Type 2 diabetes mellitus without complications; Z79.4 - care home (current) use of insulin Status: Acute Plan: Insulin coverage to maintain blood glucose between 140 and 180. Assessment and Plan Thanks for the consult. Elias Arceo MD Mar 07, 2018 15:03
--- NOTE | 2018-03-07 17:35 | HHI.PR ---
Subjective Remarks Patient says he is feeling all right. Reports some itching all over. Denies any chest pain or shortness of breath. Denies any burning with urination. Objective Vital Signs Date Time Temp Pulse Resp B/P (MAP) Pulse Ox O2 Delivery O2 Flow Rate FiO2 03/07/18 17:02 16 03/07/18 15:56 98.5 74 20 125/58 (80) 95 03/07/18 14:26 65 03/07/18 13:04 16 03/07/18 10:22 66 03/07/18 07:57 90 Room Air 03/07/18 07:37 98.4 68 16 153/67 (95) 90 03/07/18 07:26 18 03/07/18 06:32 18 03/07/18 05:17 18 03/07/18 04:00 70 03/07/18 03:00 98.0 70 20 141/65 (90) 91 03/07/18 00:40 97.6 75 20 160/72 (101) 97 03/07/18 00:00 63 03/06/18 23:14 95 Room Air 03/06/18 23:12 18 03/06/18 22:15 95 Nasal Cannula 1.00 03/06/18 21:50 98.0 74 20 156/76 (102) 94 03/06/18 21:00 95 Nasal Cannula 2.00 03/06/18 20:00 96 Nasal Cannula 3.00 I/O 03/06/18 03/06/18 03/06/18 03/07/18 03/07/18 03/07/18 07:00 15:00 23:00 07:00 15:00 23:00 Intake Total 500 ml 400 ml 625 ml Output Total 145 ml 0 ml 500 ml 185 ml Balance 500 ml -145 ml 400 ml 125 ml -185 ml Intake Oral 400 ml 625 ml IV Total 500 ml Output Urine Total 0 ml 500 ml 175 ml Drainage Total 145 ml 10 ml Bladder Scan Volume Amount 134 ml 61 ml 12 ml # Bowel Movements 0 0 Result Diagram: 03/06/18 0643 03/07/18 0850 Objective Remarks GENERAL: Patient lying in bed. Appears comfortable. SKIN: Warm and dry. HEAD: Normocephalic. EYES: No scleral icterus. No injection or drainage. NECK: Supple, trachea midline. No JVD . CARDIOVASCULAR: Regular rate and rhythm without murmurs, gallops, or rubs. RESPIRATORY: Breath sounds equal bilaterally. No accessory muscle use. GASTROINTESTINAL: Abdomen soft, non-tender, nondistended. MUSCULOSKELETAL: No cyanosis. Patient does have 1+ peripheral edema bilateral extrema BACK: Nontender without obvious deformity. No CVA tenderness. A/P Assessment and Plan //Postoperative day 3- L4-5, L5-S1 laminectomy, interbody arthrodhesis using PEEK cage and autologous bone graft, L4-5, L5-S1 segmental instrumental fixation using transpedicular screws and rods, L4-5, L5-S1 posterolateral fusion using autologous bone graft and rods. Microsurgical dissection. = Postoperative management as per surgical service //Postoperative constipation. Status post laxatives. Tender to await return of bowel function. //Diabetes mellitus. Blood sugars continue acceptable. Continue diabetic diet and insulin sliding scale //GERD. Chronic. Patient reporting reflux. Continue PPI. //Coronary artery disease //Hypertension //Hyperlipidemia = Blood pressure initially acceptable, however has been elevated. = Continue home medications. =expect blood pressure to improve with Cardura tonight. It appears he may have missed Cardura last night and could be rebounding. -Coagulation as per surgical service. = Pressures acceptable. Continue to monitor. //Hypothyroidism. Chronic. Continue home medications //CKD stage IV. 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 -Check tacrolimus level = Creatinine stable 2.05. Continue to monitor. = 03/07. Creatinine up to 2.35. Consult nephrology. Continue on IV fluids. /Chronic steroid use. Continue. No signs of adrenal insufficiency at this time //Bilateral itching. Likely secondary to IV Dilaudid. Will order Benadryl as needed. //BPH. Continue finasteride Discharge Planning As per surgical service. We will continue to follow. Aguilar Riley MD Mar 07, 2018 17:35
[2018-03-07] MEDS: DOXAZOSIN MESYLATE 4 MG TAB PO SCH (20:16)
[2018-03-07] MEDS: ATORVASTATIN 40 MG TAB PO SCH (20:17)
[2018-03-07] MEDS: SODIUM CHLOR 0.45% 1000 ML INJ 1,000 ML IV SCH (20:40)
[2018-03-08] VITALS (13 sets, daily range): BP systolic 103–171; BP diastolic 64–76; PULSE 62–77; RESP 18–20; TEMP 97.5–99.4; O2SAT 91–95
[2018-03-08] MEDS: PCA - TOTAL MG DILAUDID DELIVERED PER SHIFT SCH ×3 (00:20→13:21)
[2018-03-08] MEDS: traMADol HCL 50 MG TAB PO PRN ×4 (02:33→23:01)
[2018-03-08] MEDS: LEVOTHYROXINE SODIUM 75 MCG TAB PO SCH (06:09)
[2018-03-08] MEDS: INSULIN ASPART SUPPLEMENTAL SCALE SQ SCH ×3 (08:00→16:40)
[2018-03-08] MEDS: PROSCAR PO SCH (08:24)
[2018-03-08 08:28] LABS: ALBUMIN 2.7 GM/DL (3.4-5.0); AUTOMATED NEUTROPHIL # 4.9 TH/MM3 (1.8-7.7); BASOPHIL % 0.6 % (0.0-2.0); BICARBONATE 23.3 MEQ/L (21.0-32.0); CALCIUM 7.9 MG/DL (8.5-10.1); CREATININE 2.6 MG/DL (0.60-1.30); EOSINOPHIL # 0.1 TH/MM3 (0-0.4); EOSINOPHIL % 1.7 % (0.0-4.0); HEMATOCRIT 26.2 % (39.0-51.0); HEMOGLOBIN 8.9 GM/DL (13.0-17.0); LYMPH % 13.1 % (9.0-44.0); LYMPHOCYTE # 0.9 TH/MM3 (1.0-4.8); MEAN CELL VOLUME 90.8 FL (80.0-100.0); MEAN CORPUSCULAR HEMOGLOBIN 30.9 PG (27.0-34.0); MEAN PLATELET VOLUME 9.2 FL (7.0-11.0); MONOCYTE # 0.8 TH/MM3 (0-0.9); NEUT % 72.6 % (16.0-70.0); PHOSPHORUS 2.5 MG/DL (2.5-4.9); PLATELET COUNT 124 TH/MM3 (150-450); RED BLOOD COUNT 2.89 MIL/MM3 (4.50-5.90); WHITE BLOOD COUNT 6.7 TH/MM3 (4.0-11.0)
[2018-03-08] MEDS: PRIMIDONE 50 MG TAB PO SCH ×2 (08:29→23:00)
[2018-03-08] MEDS: hydrALAZINE HCL 100 MG TAB PO SCH ×3 (08:30→16:36)
[2018-03-08] MEDS: PROPRANOLOL HCL 40 MG TAB PO SCH (08:30)
[2018-03-08] MEDS: TACROLIMUS 1 MG CAP PO SCH ×2 (08:30→23:00)
[2018-03-08] MEDS: predniSONE 5 MG TAB PO SCH (08:30)
[2018-03-08] MEDS: GABAPENTIN 300 MG CAP PO SCH ×3 (08:30→16:36)
[2018-03-08] MEDS: CYANOCOBALAMIN 1,000 MCG TAB PO SCH (08:30)
[2018-03-08] MEDS: FENOFIBRATE 48 MG TAB PO SCH (08:30)
[2018-03-08] MEDS: CHOLECALCIFEROL (VIT D3) 1000 UNIT TAB PO SCH (08:30)
[2018-03-08] MEDS: FOLIC ACID 1 MG TAB PO SCH (08:30)
[2018-03-08] MEDS: MAGNESIUM OXIDE 400 MG TAB PO SCH ×2 (08:30→23:00)
[2018-03-08] MEDS: METOPROLOL TARTRATE 100 MG TAB PO SCH ×2 (08:30→23:00)
[2018-03-08] MEDS: PANTOPRAZOLE SOD 40 MG DELAYED RELEASE TAB PO SCH (08:30)
[2018-03-08] MEDS: FUROSEMIDE 20 MG TAB PO SCH (08:30)
[2018-03-08] MEDS: MULTIVITAMIN TAB PO SCH (08:30)
[2018-03-08] MEDS: INSULIN DETEMIR 100 UNITS/ML VIAL SQ SCH (08:31)
[2018-03-08] MEDS ORDERED: HYDR-3583 PO (09:45)
--- NOTE | 2018-03-08 10:05 | HHI.DCPOC ---
Discharge Care Plan Diagnosis: (1) S/P lumbar spinal fusion Goals to Promote Your Health * To prevent worsening of your condition and complications * To maintain your health at the optimal level Directions to Meet Your Goals Take your medications as prescribed Follow your dietary instruction Follow activity as directed Keep your appointments as scheduled Take your immunizations and boosters as scheduled If your symptoms worsen call your PCP, if no PCP go to Urgent Care Center or Emergency Room Smoking is Dangerous to Your Health. Avoid second hand smoke Call the 24-hour hour crisis hotline for domestic abuse at Juliana Contreras Mar 08, 2018 10:05
--- NOTE | 2018-03-08 10:06 | HHI.DS ---
Discharge Summary Admission Date Mar 04, 2018 at 06:08 Discharge Date: Mar 08, 2018 Admitting Diagnosis s/p lumbar fusion (1) S/P lumbar spinal fusion ICD Code: Z98.1 - Arthrodesis status Status: Acute CBC/BMP: 03/08/18 0719 03/08/18 0719 Significant Findings Laboratory Tests Test 03/05/18 14:44 03/06/18 06:43 03/07/18 08:50 03/08/18 07:19 Red Blood Count 3.68 MIL/MM3 (4.50-5.90) 3.10 MIL/MM3 (4.50-5.90) 2.89 MIL/MM3 (4.50-5.90) Hemoglobin 11.4 GM/DL (13.0-17.0) 9.8 GM/DL (13.0-17.0) 8.9 GM/DL (13.0-17.0) Hematocrit 33.7 % (39.0-51.0) 28.5 % (39.0-51.0) 26.2 % (39.0-51.0) Neutrophils (%) (Auto) 81.4 % (16.0-70.0) 75.0 % (16.0-70.0) 72.6 % (16.0-70.0) Lymphocytes (%) (Auto) 7.8 % (9.0-44.0) Monocytes (%) (Auto) 9.9 % (0.0-8.0) 11.7 % (0.0-8.0) 12.0 % (0.0-8.0) Neutrophils # (Auto) 8.1 TH/MM3 (1.8-7.7) Lymphocytes # (Auto) 0.8 TH/MM3 (1.0-4.8) 0.9 TH/MM3 (1.0-4.8) Monocytes # (Auto) 1.0 TH/MM3 (0-0.9) 1.1 TH/MM3 (0-0.9) Blood Urea Nitrogen 28 MG/DL (7-18) 29 MG/DL (7-18) 34 MG/DL (7-18) 43 MG/DL (7-18) Creatinine 2.01 MG/DL (0.60-1.30) 2.05 MG/DL (0.60-1.30) 2.35 MG/DL (0.60-1.30) 2.60 MG/DL (0.60-1.30) Random Glucose 145 MG/DL (74-106) Calcium Level 8.2 MG/DL (8.5-10.1) 8.0 MG/DL (8.5-10.1) 8.2 MG/DL (8.5-10.1) 7.9 MG/DL (8.5-10.1) Chloride Level 111 MEQ/L (98-107) 108 MEQ/L (98-107) Estimat Glomerular Filtration Rate 32 ML/MIN (>89) 32 ML/MIN (>89) 27 ML/MIN (>89) 24 ML/MIN (>89) Platelet Count 130 TH/MM3 (150-450) 124 TH/MM3 (150-450) Albumin 3.0 GM/DL (3.4-5.0) 3.0 GM/DL (3.4-5.0) 2.7 GM/DL (3.4-5.0) Phosphorus Level 2.3 MG/DL (2.5-4.9) Tacrolimus (Prograf) Level 3.9 NG/ML (5.0-20.0) Sodium Level 134 MEQ/L (136-145) Imaging Last Impressions Renal Ultrasound 03/08/18 0000 Signed Impressions: Service Date/Time: Thursday, March 08, 2018 20:48 - CONCLUSION: Worsening resistive indices. Hydronephrosis not significantly changed. Ramakrishna Smalls MD Lumbar Spine X-Ray 03/04/18 0000 Signed Impressions: Service Date/Time: Sunday, March 04, 2018 16:02 - CONCLUSION: 1. Fixation lower lumbar spine as above. Horace Garcia MD Hospital Course Mr. Gaming s/p L4-5, L5-S1 laminectomy, interbody arthrodhesis using PEEK cage and autologous bone graft, L4-5, L5-S1 segmental instrumental fixation using transpedicular screws and rods, L4-5, L5-S1 posterolateral fusion using autologous bone graft and rods. Microsurgical dissection on Mar 04, 2018 for severe degenerative disk disease and spondylolisthesis. 03/05: doing well, moderate surgical pain with movement 03/06: Sitting up in chair, moderate surgical pain. Continues to use CLOSING MANAGER, required breakthrough morphine, also on tramadol as needed. Reports prior radicular pain resolved. Denies chest pain, shortness of breath or difficulty breathing. 03/07: Reports some difficulty with urination, surgical pain slowly improving, just returned from ambulating with PT. Very minimal drainage from TIFFANY 03/08: remains constipated per nursing overnight, during rounds pt reports needing to have BM. pain better controlled, agreeable to dc to rehab. 03/09: Discharge planning to [facility]. Positive bowel movements and urinating yesterday. Renal function still not well, medical managing, nephrology also is following. cleared medically for dc to [facility]. Pt Condition on Discharge: Stable Discharge Disposition: Rehab Inpatient Discharge Instructions DIET: Follow Instructions for: Heart Healthy Diet ACTIVITIES You can perform: Weight Bearing As Laurita ADDITIONAL Activity Instructio: Avoid strenuous activities, heavy lifting over 5 lbs, overhead activities, repetitive bending, twisting, pushing, pulling or any activities which might result in stress over the spine. Avoid situation that will put at risk for falls. Use assistive device as needed for walking. Wear LSO brace when out of bed. New Medications: Hydrocodone-Acetaminophen (Hydrocodone-Acetaminophen) 10-325 mg Tab 1 TAB PO Q8H PRN for PAIN, #31 TAB 0 Refills Continued Medications: Amlodipine (Norvasc) 10 Mg Tab 10 MG PO DAILY for Blood Pressure Management, #30 TAB 0 Refills Atorvastatin (Lipitor) 40 Mg Tab 40 MG PO HS for Cholesterol Management, #30 TAB 0 Refills Calcium Carbonate (Antacid) (Calcium Carbonate (Antacid)) 500 Mg Chew 500 MG CHEW PRN for HEARTBURN, TAB 0 Refills Cholecalciferol (Vitamin D3 Maximum Strength) 5,000 Unit Cap 2000 UNITS PO DAILY for Nutritional Supplement, #1 BOTTLE 0 Refills Cyanocobalamin (Vitamin B-12) 1,000 Mcg Tab 1000 MCG PO DAILY for Nutritional Supplement, #1 BOTTLE 0 Refills Doxazosin (Cardura) 8 Mg Tab 8 MG PO HS, #30 TAB 0 Refills Fenofibrate (Fenofibrate) 48 Mg Tab 48 MG PO DAILY, #30 TAB 0 Refills Finasteride (Finasteride) 5 Mg Tab 1 MG PO DAILY for Manage Prostate Problems, #30 TAB 0 Refills Do not crush. Folic Acid (Folic Acid) 0.8 Mg Tab 1000 MCG PO DAILY for Nutritional Supplement, TAB 0 Refills Furosemide (Furosemide) 20 Mg Tab 20 MG PO DAILY, #30 TAB 0 Refills Gabapentin (Gabapentin) 300 Mg Cap 300 MG PO TID, #90 CAP 0 Refills Hydralazine (Hydralazine) 100 Mg Tab 100 MG PO TID for Blood Pressure Management, TAB 0 Refills Take with meals Insulin Glargine Inj (Lantus Inj) 1,000 Unit/10 Ml Vial 36 UNITS SQ BID for Blood Sugar Management, VIAL 0 Refills Insulin Lispro (Human) Inj (Humalog Inj) 1,000 Unit/10 Ml Vial 1-25 UNITS SQ ACHS PRN for BLOOD SUGAR MANAGEMENT, #1 VIAL 0 Refills Max dose at bedtime:( )units; sugars< 70,(0)units; sugars 150-199,(1)unit; sugars 200-249,(3)units; sugars 250-299,(5)units; sugars 300-349,(7)units; sugars more than 349,(9)units. Levothyroxine (Synthroid) 75 Mcg Tab 75 MCG PO DAILY for Thyroid, #30 TAB 0 Refills Magnesium Oxide (Magnesium Oxide) 400 Mg Tab 800 MG PO BID for Nutritional Supplement, TAB 0 Refills Metoprolol Tartrate (Metoprolol Tartrate) 100 Mg Tab 100 MG PO BID, #60 TAB 0 Refills Multiple Vitamin (Multiple Vitamin) 1 Tab 1 TAB PO DAILY for Nutritional Supplement, TAB 0 Refills Prednisone (Prednisone) 5 Mg Tab 5 MG PO DAILY, TAB 0 Refills Primidone (Primidone) 50 Mg Tab 50 MG PO BID for Control Seizures, #60 TAB 0 Refills Propranolol (Propranolol) 40 Mg Tab 40 MG PO DAILY, #60 TAB 0 Refills Tacrolimus (Tacrolimus) 1 Mg Cap 4 MG PO Q12H for Prevent Transplant Reject, #240 CAP 0 Refills Tramadol (Tramadol) 50 Mg Tab 50 MG PO Q4H PRN for PAIN, TAB 0 Refills Juliana Contreras Mar 08, 2018 10:06
[2018-03-08] MEDS ORDERED: LACTULOSE SYRUP 20 GM/30 ML CUP PO PRN (10:30)
--- NOTE | 2018-03-08 10:34 | HHI.NSPN ---
Note Status Status: Progress Note Interval History Interval History Mr. Gaming s/p L4-5, L5-S1 laminectomy, interbody arthrodhesis using PEEK cage and autologous bone graft, L4-5, L5-S1 segmental instrumental fixation using transpedicular screws and rods, L4-5, L5-S1 posterolateral fusion using autologous bone graft and rods. Microsurgical dissection on Mar 04, 2018 for severe degenerative disk disease and spondylolisthesis. 03/05: doing well, moderate surgical pain with movement 03/06: Sitting up in chair, moderate surgical pain. Continues to use CAFE LEAD, required breakthrough morphine, also on tramadol as needed. Reports prior radicular pain resolved. Denies chest pain, shortness of breath or difficulty breathing. 03/07: Reports some difficulty with urination, surgical pain slowly improving, just returned from ambulating with PT. Very minimal drainage from TIFFANY 03/08: remains constipated per nursing overnight, during rounds pt reports needing to have BM. pain better controlled, agreeable to dc to rehab. Labs, Micro, & Vital Signs Results Date Time Temp Pulse Resp B/P (MAP) Pulse Ox O2 Delivery O2 Flow Rate FiO2 03/08/18 09:11 65 03/08/18 07:46 66 18 153/70 (97) 91 03/08/18 06:22 93 03/08/18 06:22 18 03/08/18 05:42 97.5 64 18 103/67 (79) 03/08/18 01:39 97.8 77 18 111/76 (88) 95 03/08/18 00:20 16 03/08/18 00:08 66 03/07/18 20:17 70 03/07/18 20:10 91 Room Air 03/07/18 20:07 97.8 75 20 146/65 (92) 91 03/07/18 18:14 66 03/07/18 17:02 16 03/07/18 15:56 98.5 74 20 125/58 (80) 95 03/07/18 14:26 65 03/07/18 13:04 16 Constitutional Vital Signs Date Time Temp Pulse Resp B/P (MAP) Pulse Ox O2 Delivery O2 Flow Rate FiO2 03/08/18 09:11 65 03/08/18 07:46 66 18 153/70 (97) 91 03/08/18 06:22 93 03/08/18 06:22 18 03/08/18 05:42 97.5 64 18 103/67 (79) 03/08/18 01:39 97.8 77 18 111/76 (88) 95 03/08/18 00:20 16 03/08/18 00:08 66 03/07/18 20:17 70 03/07/18 20:10 91 Room Air 03/07/18 20:07 97.8 75 20 146/65 (92) 91 03/07/18 18:14 66 03/07/18 17:02 16 03/07/18 15:56 98.5 74 20 125/58 (80) 95 03/07/18 14:26 65 03/07/18 13:04 16 Review of Systems Constitutional: DENIES: Fever Gastrointestinal: COMPLAINS OF: Constipation Musculoskeletal: COMPLAINS OF: Back pain Physical Exam Mr. Gaming is alert oriented to time, place and person. Speech is fluent. Sitting up in chair in NAD. Cranial nerve examination: pupils equal, round and reactive to light. Facial motor are normal and symmetrical. Gross hearing appears intact. Motor: moves all major muscle groups of both lower extremities Ext: no swelling Skin: warm, dry Medications Current Medications Current Medications Medications (Trade) Dose Ordered Sig/Sanjuana Route PRN Reason Start Time Stop Time Status Last Admin Dose Admin Naloxone HCl (Narcan Inj) 0.4 mg UNSCH PRN IV PUSH RESPIRATORY RATE LESS THAN 10 03/04/18 21:15 Diphenhydramine HCl (Benadryl Inj) 25 mg Q6H PRN IV PUSH ITCHING 03/04/18 21:15 Hydromorphone HCl (Dilaudid CAFE LEAD Inj) 6 mg UNSCH IV 03/04/18 21:15 03/07/18 17:02 CAFE LEAD Dosage Infused (Pha) 1 Q8HR .XX 03/04/18 22:00 03/08/18 06:22 Morphine Sulfate (Morphine Inj) 2 mg Q2H PRN IV PUSH PAIN SCALE 1 TO 6 03/04/18 21:15 Morphine Sulfate (Morphine Inj) 4 mg Q2H PRN IV PUSH PAIN SCALE 7 TO 10 03/04/18 21:15 03/05/18 15:16 Acetaminophen (Tylenol) 650 mg Q4H PRN PO TEMPERATURE > 101.5 F 03/04/18 21:15 Amlodipine Besylate (Norvasc) 10 mg DAILY PO 03/05/18 09:00 03/08/18 08:29 Atorvastatin Calcium (Lipitor) 40 mg HS PO 03/05/18 21:00 03/07/18 20:17 Cholecalciferol (Vitamin D3) 2,000 units DAILY PO 03/05/18 09:00 03/08/18 08:30 Cyanocobalamin (Vitamin B12) 1,000 mcg DAILY PO 03/05/18 09:00 03/08/18 08:30 Doxazosin Mesylate (Cardura) 8 mg HS PO 03/05/18 21:00 03/07/18 20:16 Fenofibrate (Tricor) 48 mg DAILY PO 03/05/18 09:00 03/08/18 08:30 Patient Own Medication PT OWN MED: PROSCA... DAILY PO 03/05/18 09:00 Folic Acid (Folate) 1 mg DAILY PO 03/05/18 09:00 03/08/18 08:30 Gabapentin (Neurontin) 300 mg TID PO 03/05/18 09:00 03/08/18 08:30 Hydralazine HCl (Apresoline) 100 mg TID PO 03/05/18 09:00 03/08/18 08:30 Insulin Detemir (Levemir Inj) 36 units BID SQ 03/05/18 09:00 03/08/18 08:31 Levothyroxine Sodium (Synthroid) 75 mcg DAILY@0700 PO 03/05/18 07:00 03/08/18 06:09 Magnesium Oxide (Mag-Ox) 800 mg BID PO 03/05/18 09:00 03/08/18 08:30 Metoprolol Tartrate (Lopressor) 100 mg BID PO 03/05/18 09:00 03/08/18 08:30 Prednisone (Deltasone) 5 mg DAILY PO 03/05/18 09:00 03/08/18 08:30 Primidone (Mysoline) 50 mg BID PO 03/05/18 09:00 03/08/18 08:29 Propranolol HCl (Inderal) 40 mg DAILY PO 03/05/18 09:00 03/08/18 08:30 Tacrolimus (Prograf) 4 mg Q12H PO 03/04/18 21:15 03/08/18 08:30 Tramadol HCl (Ultram) 50 mg Q4H PRN PO PAIN 03/04/18 21:15 03/08/18 08:52 Multivitamins (Theragran) 1 tab DAILY PO 03/05/18 09:00 03/08/18 08:30 Dextrose (D50w (Vial) Inj) 50 ml UNSCH PRN IV PUSH HYPOGLYCEMIA-SEE COMMENTS 03/04/18 21:15 Glucagon (Glucagon Inj) 1 mg UNSCH PRN OTHER HYPOGLYCEMIA-SEE COMMENTS 03/04/18 21:15 Insulin Aspart (NovoLOG SUPPLEMENTAL SCALE) 1 ACHS SLIDING SCALE SQ 03/05/18 08:00 03/07/18 20:40 Ondansetron HCl (Zofran Inj) 4 mg Q6HR PRN IV PUSH nausea/vomiting 03/05/18 16:00 03/07/18 13:09 Sodium Chloride 1,000 ml @ 42 mls/hr [id number] IV 03/05/18 20:30 03/07/18 20:40 Diazepam (Valium) 5 mg Q8H PRN PO MUSCLE SPASM 03/05/18 20:30 03/05/18 22:50 Pantoprazole Sodium (Protonix) 40 mg DAILY PO 03/07/18 09:00 03/08/18 08:30 Magnesium Hydroxide (Milk Of Magnesia Liq) 30 ml DAILY PRN PO constipation 03/07/18 12:30 03/07/18 16:55 Enoxaparin Sodium (Lovenox Inj) 30 mg Q24H SQ 03/08/18 13:00 Medical Decision Making MDM Remarks 77 y/o male L4-5, L5-S1 PLIF 03/04/18 Plan Plan Remarks needing to have BM now, nurse notified cont bowel regimen, if persistent constipation lactulose added Surgical pain improving, continue pain control SCDs and teds for DVT prophylaxis, Dr. Kimbrough cleared to start subcutaneous Lovenox Protonix for GI prophylaxis IS every hour Continue PT, increased mobilization out of bed with LSO Continue bladder scanning as needed for retention, straight cath as needed, will monitor Dr. Luis E cleared for dc to rehab today if urinating well with +BM and when medically cleared appreciate medical assistance, Juliana Contreras Mar 08, 2018 10:34
[2018-03-08] MEDS: ENOXAPARIN SODIUM 30 MG/0.3 ML SYRINGE SQ SCH (12:31)
--- NOTE | 2018-03-08 12:54 | HHI.NPPN ---
Subjective Interval History He is sitting on a chair. Back pain persists. Review of Systems General Constitutional: Fatigue Musculoskeletal MS Remarks back pain Objective Data Data Vital Signs Date Time Temp Pulse Resp B/P (MAP) Pulse Ox O2 Delivery O2 Flow Rate FiO2 03/08/18 12:47 99.4 62 20 141/64 (89) 91 03/08/18 09:11 65 03/08/18 07:46 66 18 153/70 (97) 91 03/08/18 06:22 93 03/08/18 06:22 18 03/08/18 05:42 97.5 64 18 103/67 (79) 03/08/18 01:39 97.8 77 18 111/76 (88) 95 03/08/18 00:20 16 03/08/18 00:08 66 03/07/18 20:17 70 03/07/18 20:10 91 Room Air 03/07/18 20:07 97.8 75 20 146/65 (92) 91 03/07/18 18:14 66 03/07/18 17:02 16 03/07/18 15:56 98.5 74 20 125/58 (80) 95 03/07/18 14:26 65 03/07/18 13:04 16 -: 03/08/18 0719 03/08/18 0719 Physical Exam General Appearance: Well Developed, No Acute Distress Eyes Eye Exam: Pupils Equal Neck Neck Exam: Neck Supple Pulmonary Resp Exam: Clear Bilaterally, Breath Sounds Equal Cardiology CV Exam: Regular, Normal Sinus Rhythm Gastrointestinal/Abdomen GI Exam: Soft Musculoskeletal MS Exam: Joints Intact Extremeties Extremities Exam: No Edema Assessment/Plan Problem List: (1) Kidney transplant status, cadaveric ICD Codes: Z94.0 - Kidney transplant status Status: Acute Plan: He is on Tacrolimus and Prednisone which are being continued. Tacrolimus level is 5. May need to repeat it. Avoid NSAIDs and other nephrotoxic agents. Monitor urine output and renal function. Renal function is worse. Continue IVF cautiously. Hold Lasix. (2) Acute on chronic renal insufficiency ICD Codes: N28.9 - Disorder of kidney and ureter, unspecified; N18.9 - Chronic kidney disease, unspecified Status: Acute Plan: He reports that his baseline creatinine is around 1.7, but as mentioned above, his creatinine was around 2.3-2.4 in last October and earlier this year. Continue cautious hydration. Order US of the transplant kidney. (3) Hypertension ICD Codes: I10 - Essential (primary) hypertension Status: Acute Plan: Continue current medications. Monitor. 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 Yoo to follow from tomorrow. Elias Arceo MD Mar 08, 2018 12:54
--- NOTE | 2018-03-08 14:11 | HHI.PR ---
Subjective Remarks As he is feeling much better. Denies any chest pain or shortness of breath. Had a bowel movement. Denies any nausea. Reports itching has improved. Objective Vital Signs Date Time Temp Pulse Resp B/P (MAP) Pulse Ox O2 Delivery O2 Flow Rate FiO2 03/08/18 13:21 12 03/08/18 13:08 62 03/08/18 12:47 99.4 62 20 141/64 (89) 91 03/08/18 09:11 65 03/08/18 07:46 66 18 153/70 (97) 91 03/08/18 06:22 93 03/08/18 06:22 18 03/08/18 05:42 97.5 64 18 103/67 (79) 03/08/18 01:39 97.8 77 18 111/76 (88) 95 03/08/18 00:20 16 03/08/18 00:08 66 03/07/18 20:17 70 03/07/18 20:10 91 Room Air 03/07/18 20:07 97.8 75 20 146/65 (92) 91 03/07/18 18:14 66 03/07/18 17:02 16 03/07/18 15:56 98.5 74 20 125/58 (80) 95 03/07/18 14:26 65 I/O 03/07/18 03/07/18 03/07/18 03/08/18 03/08/18 03/08/18 07:00 15:00 23:00 07:00 15:00 23:00 Intake Total 625 ml 1000 ml Output Total 500 ml 185 ml Balance 125 ml -185 ml 1000 ml Intake Oral 625 ml IV Total 1000 ml Output Urine Total 500 ml 175 ml Drainage Total 10 ml # Voids 1 # Bowel Movements 0 Result Diagram: 03/08/1871803/08/18718 Objective Remarks GENERAL: Patient lying in bed. Appears comfortable. Sitting up in chair. SKIN: Warm and dry. HEAD: Normocephalic. EYES: No scleral icterus. No injection or drainage. NECK: Supple, trachea midline. No JVD . CARDIOVASCULAR: Regular rate and rhythm without murmurs, gallops, or rubs. RESPIRATORY: Breath sounds equal bilaterally. No accessory muscle use. GASTROINTESTINAL: Abdomen soft, non-tender, nondistended. MUSCULOSKELETAL: No cyanosis. Patient does have 1+ peripheral edema bilateral extrema, unchanged from yesterday. BACK: Nontender without obvious deformity. No CVA tenderness. A/P Assessment and Plan //Postoperative day 4- L4-5, L5-S1 laminectomy, interbody arthrodhesis using PEEK cage and autologous bone graft, L4-5, L5-S1 segmental instrumental fixation using transpedicular screws and rods, L4-5, L5-S1 posterolateral fusion using autologous bone graft and rods. Microsurgical dissection. = Postoperative management as per surgical service //Postoperative constipation. Status post laxatives. Tender to await return of bowel function. = Resolved after laxatives. //Diabetes mellitus. Blood sugars continue acceptable. Continue diabetic diet and insulin sliding scale //GERD. Chronic. Patient reporting reflux. Continue PPI. //Coronary artery disease //Hypertension //Hyperlipidemia = Blood pressure initially acceptable, however has been elevated. = Continue home medications. =expect blood pressure to improve with Cardura tonight. It appears he may have missed Cardura last night and could be rebounding. -Coagulation as per surgical service. = Pressures acceptable. Continue to monitor. //Hypothyroidism. Chronic. Continue home medications //CKD stage IV. 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 -Check tacrolimus level = Creatinine stable 2.05. Continue to monitor. = 03/07. Creatinine up to 2.35. Consult nephrology. Continue on IV fluids. = 03/08. Creatinine up to 2.6. Ultrasound kidneys pending. /Chronic steroid use. Continue. No signs of adrenal insufficiency at this time //Bilateral itching. Likely secondary to IV Dilaudid. Improving. Continue to Benadryl as needed. //BPH. Continue finasteride Discharge Planning As per surgical service. We will continue to follow. Aguilar Riley MD Mar 08, 2018 14:10
[2018-03-08] MEDS: HYDROmorphone HCL PCA 6 MG/30 ML IV SCH (16:46)
[2018-03-08] MEDS ORDERED: NALOXONE HCL 0.4 MG/ML AMP IV PUSH PRN (17:15)
[2018-03-08] MEDS: GABAPENTIN 100 MG CAP PO SCH (17:34)
[2018-03-08] MEDS: DOXAZOSIN MESYLATE 4 MG TAB PO SCH (23:00)
[2018-03-08] MEDS: ATORVASTATIN 40 MG TAB PO SCH (23:01)
[2018-03-08] MEDS: SODIUM CHLOR 0.45% 1000 ML INJ 1,000 ML IV SCH (23:01)
--- NOTE | 2018-03-08 23:36 | RADRPT ---
EXAM DATE/TIME: 03/08/2018 20:48 [facility] COMPARISON: US KIDNEY / TRANSPLANT, July 05, 2013, 9:27. INDICATIONS : Increased lab values. MEDICAL HISTORY : Hypothyroidism. Gastroesophageal reflux disease. Glasses. Hearing aids. Coronary artery disease. An chelsie. Sleep apnea. Arthritis. MRSA. SURGICAL HISTORY : Appendectomy. Bilateral cataract surgery. Stent. Cardiac catheterization. Left arm avf. Right kid chaitanya transplant. Back surgery. Left knee replacement. ENCOUNTER: Subsequent ACUITY: 2 days PAIN SCORE: 0/10 LOCATION: Right lower quadrant MEASUREMENTS: TRANSPLANT KIDNEY: 14.0 x 7.2 x 6.5 cm LOCATION: Right lower quadrant. PREVIOUS ULTRASOUND: May 18 2013 ARCUATE ARTERIES RESISTIVE INDEX: Upper - 1.0 Mid - 1.0 Lower - 1.0 MAIN RENAL ARTERY VELOCITY: (cm/sec): 53 cm/sec MAIN RENAL VEIN: Patent EXTERNAL ILIAC ARTERY VELOCITY (cm/sec): 105 cm/sec * NORMAL DOPPLER FINDINGS Arcuate arteries - RI = 0.6 - 0.8 Renal artery = under 200 cm/sec Renal vein = May be monophasic with continuous flow or demonstrate some pulsatility with cardiac cycl e FINDINGS: Transplant kidney is in the right iliac fossa. There is moderate hydronephrosis, similar to the 2013 prior. No perinephric fluid demonstrated. Resistive indices are diffusely elevated, much worse than i n 2013 and most likely indicative of rejection. Urinary bladder within normal limits. CONCLUSION: Worsening resistive indices. Hydronephrosis not significantly changed. Ramakrishna Smalls MD on March 08, 2018 at 23:33 Board Certified Radiologist. This report was verified electronically.
[2018-03-09] VITALS (7 sets, daily range): BP systolic 134–172; BP diastolic 66–73; PULSE 61–75; RESP 17–22; TEMP 98.2–99.7; O2SAT 92–98
[2018-03-09] MEDS: INSULIN ASPART SUPPLEMENTAL SCALE SQ SCH ×5 (00:14→22:41)
[2018-03-09] MEDS: INSULIN DETEMIR 100 UNITS/ML VIAL SQ SCH ×3 (00:15→22:41)
[2018-03-09] MEDS: MORPHINE SULFATE 2 MG/ML SYRINGE IV PUSH PRN ×2 (00:20→09:11)
[2018-03-09] MEDS: LEVOTHYROXINE SODIUM 75 MCG TAB PO SCH (06:15)
[2018-03-09] MEDS: traMADol HCL 50 MG TAB PO PRN ×2 (06:15→13:07)
[2018-03-09] MEDS: CYANOCOBALAMIN 1,000 MCG TAB PO SCH (09:07)
[2018-03-09] MEDS: GABAPENTIN 100 MG CAP PO SCH ×3 (09:08→18:24)
[2018-03-09] MEDS: CHOLECALCIFEROL (VIT D3) 1000 UNIT TAB PO SCH (09:08)
[2018-03-09] MEDS: PROPRANOLOL HCL 40 MG TAB PO SCH (09:08)
[2018-03-09] MEDS: predniSONE 5 MG TAB PO SCH (09:08)
[2018-03-09] MEDS: FOLIC ACID 1 MG TAB PO SCH (09:08)
[2018-03-09] MEDS: MULTIVITAMIN TAB PO SCH (09:08)
[2018-03-09] MEDS: MAGNESIUM OXIDE 400 MG TAB PO SCH ×2 (09:08→20:52)
[2018-03-09] MEDS: PRIMIDONE 50 MG TAB PO SCH ×2 (09:09→20:53)
[2018-03-09] MEDS: PANTOPRAZOLE SOD 40 MG DELAYED RELEASE TAB PO SCH (09:09)
[2018-03-09] MEDS: TACROLIMUS 1 MG CAP PO SCH ×2 (09:09→20:52)
[2018-03-09] MEDS: METOPROLOL TARTRATE 100 MG TAB PO SCH ×2 (09:09→20:53)
[2018-03-09] MEDS: hydrALAZINE HCL 100 MG TAB PO SCH ×3 (09:10→18:24)
[2018-03-09] MEDS: PROSCAR PO SCH (09:12)
[2018-03-09] MEDS: FENOFIBRATE 48 MG TAB PO SCH (09:12)
[2018-03-09 10:50] LABS: ALBUMIN 2.8 GM/DL (3.4-5.0); BICARBONATE 21.4 MEQ/L (21.0-32.0); CALCIUM 8.1 MG/DL (8.5-10.1); CREATININE 2.18 MG/DL (0.60-1.30)
[2018-03-09 10:53] LABS: PHOSPHORUS 2.2 MG/DL (2.5-4.9)
[2018-03-09] MEDS ORDERED: FINASTERIDE 5 MG TAB PO ONE (11:30)
--- NOTE | 2018-03-09 12:20 | HHI.NSPN ---
(Juliana Contreras) Note Status Status: Progress Note (Juliana Contreras) Interval History Interval History Mr. Gaming s/p L4-5, L5-S1 laminectomy, interbody arthrodhesis using PEEK cage and autologous bone graft, L4-5, L5-S1 segmental instrumental fixation using transpedicular screws and rods, L4-5, L5-S1 posterolateral fusion using autologous bone graft and rods. Microsurgical dissection on Mar 04, 2018 for severe degenerative disk disease and spondylolisthesis. 03/05: doing well, moderate surgical pain with movement 03/06: Sitting up in chair, moderate surgical pain. Continues to use CARGO BRACER, required breakthrough morphine, also on tramadol as needed. Reports prior radicular pain resolved. Denies chest pain, shortness of breath or difficulty breathing. 03/07: Reports some difficulty with urination, surgical pain slowly improving, just returned from ambulating with PT. Very minimal drainage from TIFFANY 03/08: remains constipated per nursing overnight, during rounds pt reports needing to have BM. pain better controlled, agreeable to dc to rehab. 03/09: Discharge planning to [facility]. Positive bowel movements and urinating yesterday. Renal function still not well, medical managing, nephrology also is following. (Juliana Contreras) Labs, Micro, & Vital Signs Results Date Time Temp Pulse Resp B/P (MAP) Pulse Ox O2 Delivery O2 Flow Rate FiO2 03/09/18 09:00 Room Air 03/09/18 08:00 99.0 67 19 148/69 (95) 93 03/09/18 05:39 99.7 65 18 172/73 (106) 93 03/09/18 03:45 61 03/09/18 01:00 98.3 75 18 167/72 (103) 97 03/08/18 23:53 76 03/08/18 22:05 91 Room Air 03/08/18 20:00 98.8 67 18 171/72 (105) 91 03/08/18 19:44 68 03/08/18 16:51 65 03/08/18 16:46 12 03/08/18 16:32 98.8 64 18 150/65 (93) 91 03/08/18 13:21 12 03/08/18 13:08 62 03/08/18 12:47 99.4 62 20 141/64 (89) 91 Constitutional Vital Signs Date Time Temp Pulse Resp B/P (MAP) Pulse Ox O2 Delivery O2 Flow Rate FiO2 03/09/18 09:00 Room Air 03/09/18 08:00 99.0 67 19 148/69 (95) 93 03/09/18 05:39 99.7 65 18 172/73 (106) 93 03/09/18 03:45 61 03/09/18 01:00 98.3 75 18 167/72 (103) 97 03/08/18 23:53 76 03/08/18 22:05 91 Room Air 03/08/18 20:00 98.8 67 18 171/72 (105) 91 03/08/18 19:44 68 03/08/18 16:51 65 03/08/18 16:46 12 03/08/18 16:32 98.8 64 18 150/65 (93) 91 03/08/18 13:21 12 03/08/18 13:08 62 03/08/18 12:47 99.4 62 20 141/64 (89) 91 (Juliana Contreras) Physical Exam Mr. Gaming is alert oriented to time, place and person. Speech is fluent. Sitting up in chair in NAD. Cranial nerve examination: pupils equal, round and reactive to light. Facial motor are normal and symmetrical. Gross hearing appears intact. Motor: moves all major muscle groups of both lower extremities Ext: no swelling Skin: warm, dry (Juliana Contreras) Medications Current Medications Current Medications Medications (Trade) Dose Ordered Sig/Sanjuana Route PRN Reason Start Time Stop Time Status Last Admin Dose Admin Acetaminophen (Tylenol) 650 mg Q4H PRN PO TEMPERATURE > 101.5 F 03/04/18 21:15 Amlodipine Besylate (Norvasc) 10 mg DAILY PO 03/05/18 09:00 03/09/18 09:09 Atorvastatin Calcium (Lipitor) 40 mg HS PO 03/05/18 21:00 03/08/18 23:01 Cholecalciferol (Vitamin D3) 2,000 units DAILY PO 03/05/18 09:00 03/09/18 09:08 Cyanocobalamin (Vitamin B12) 1,000 mcg DAILY PO 03/05/18 09:00 03/09/18 09:07 Doxazosin Mesylate (Cardura) 8 mg HS PO 03/05/18 21:00 03/08/18 23:00 Fenofibrate (Tricor) 48 mg DAILY PO 03/05/18 09:00 03/09/18 09:12 Patient Own Medication PT OWN MED: PROSCA... DAILY PO 03/05/18 09:00 Future Hold Folic Acid (Folate) 1 mg DAILY PO 03/05/18 09:00 03/09/18 09:08 Hydralazine HCl (Apresoline) 100 mg TID PO 03/05/18 09:00 03/09/18 09:10 Insulin Detemir (Levemir Inj) 36 units BID SQ 03/05/18 09:00 03/09/18 09:12 Levothyroxine Sodium (Synthroid) 75 mcg DAILY@0700 PO 03/05/18 07:00 03/09/18 06:15 Magnesium Oxide (Mag-Ox) 800 mg BID PO 03/05/18 09:00 03/09/18 09:08 Metoprolol Tartrate (Lopressor) 100 mg BID PO 03/05/18 09:00 03/09/18 09:09 Prednisone (Deltasone) 5 mg DAILY PO 03/05/18 09:00 03/09/18 09:08 Primidone (Mysoline) 50 mg BID PO 03/05/18 09:00 03/09/18 09:09 Propranolol HCl (Inderal) 40 mg DAILY PO 03/05/18 09:00 03/09/18 09:08 Tacrolimus (Prograf) 4 mg Q12H PO 03/04/18 21:15 03/09/18 09:09 Tramadol HCl (Ultram) 50 mg Q4H PRN PO PAIN 03/04/18 21:15 03/09/18 06:15 Multivitamins (Theragran) 1 tab DAILY PO 03/05/18 09:00 03/09/18 09:08 Dextrose (D50w (Vial) Inj) 50 ml UNSCH PRN IV PUSH HYPOGLYCEMIA-SEE COMMENTS 03/04/18 21:15 Glucagon (Glucagon Inj) 1 mg UNSCH PRN OTHER HYPOGLYCEMIA-SEE COMMENTS 03/04/18 21:15 Insulin Aspart (NovoLOG SUPPLEMENTAL SCALE) 1 ACHS SLIDING SCALE SQ 03/05/18 08:00 03/09/18 09:11 Ondansetron HCl (Zofran Inj) 4 mg Q6HR PRN IV PUSH nausea/vomiting 03/05/18 16:00 03/07/18 13:09 Sodium Chloride 1,000 ml @ 42 mls/hr [id number] IV 03/05/18 20:30 03/08/18 23:01 Diazepam (Valium) 5 mg Q8H PRN PO MUSCLE SPASM 03/05/18 20:30 03/05/18 22:50 Pantoprazole Sodium (Protonix) 40 mg DAILY PO 03/07/18 09:00 03/09/18 09:09 Magnesium Hydroxide (Milk Of Magnesia Liq) 30 ml DAILY PRN PO MILD constipation 03/07/18 12:30 03/07/18 16:55 Enoxaparin Sodium (Lovenox Inj) 30 mg Q24H SQ 03/08/18 13:00 03/08/18 12:31 Lactulose (Lactulose Liq) 30 ml DAILY PRN PO SEVERE constipation 03/08/18 10:30 Gabapentin (Neurontin) 200 mg TID PO 03/08/18 18:00 03/09/18 09:08 Acetaminophen/ Hydrocodone Bitart (Shohola 10-325 Mg) 1 tab Q4H PRN PO PAIN SCALE 6 TO 10 03/08/18 17:15 Oxycodone/ Acetaminophen (Percocet 5-325 Mg) 1 tab Q6H PRN PO PAIN SCALE 3 TO 5 03/08/18 17:15 Morphine Sulfate (Morphine Inj) 4 mg Q3H PRN IV PUSH BREAKTHROUGH PAIN 03/08/18 17:15 03/09/18 09:11 Naloxone HCl (Narcan Inj) 0.4 mg UNSCH PRN IV PUSH SEE LABEL COMMENTS 03/08/18 17:15 Finasteride (Proscar) 5 mg DAILY PO 03/10/18 09:00 (Juliana Contreras) Medical Decision Making MDM Remarks 77 y/o male L4-5, L5-S1 PLIF 03/04/18 (Juliana Contreras) Plan Plan Remarks Continue medical management of renal function, nephrology following Continue supportive care, postoperative pain control, avoid IV medications, continue oral pain medications SCDs and teds for DVT prophylaxis, continue Lovenox Protonix for GI prophylaxis IS every hour Continue PT, increased mobilization out of bed with LSO Discharge planning to [facility] when medically cleared Dr. Kimbrough has discussed with Dr. Riley (Juliana Contreras) Attending Statement The exam, history, and the medical decision-making described in the above note were completed with the assistance of the mid-level provider. I reviewed and agree with the findings presented. I attest that I had a [id number] encounter with the patient on the same day, and personally performed and documented my assessment and findings in the medical record. (Rubio Kimbrough MD) Juliana Contreras Mar 09, 2018 12:20 Rubio Kimbrough MD Mar 10, 2018 18:04
[2018-03-09] MEDS: ENOXAPARIN SODIUM 30 MG/0.3 ML SYRINGE SQ SCH (13:08)
--- NOTE | 2018-03-09 14:35 | HHI.PR ---
Subjective Remarks Patient says he is feeling well. Denies any chest pain or shortness of breath. Denies any nausea vomiting. Objective Vital Signs Date Time Temp Pulse Resp B/P (MAP) Pulse Ox O2 Delivery O2 Flow Rate FiO2 03/09/18 09:00 Room Air 03/09/18 08:00 99.0 67 19 148/69 (95) 93 03/09/18 05:39 99.7 65 18 172/73 (106) 93 03/09/18 03:45 61 03/09/18 01:00 98.3 75 18 167/72 (103) 97 03/08/18 23:53 76 03/08/18 22:05 91 Room Air 03/08/18 20:00 98.8 67 18 171/72 (105) 91 03/08/18 19:44 68 03/08/18 16:51 65 03/08/18 16:46 12 03/08/18 16:32 98.8 64 18 150/65 (93) 91 I/O 03/08/18 03/08/18 03/08/18 03/09/18 03/09/18 03/09/18 07:00 15:00 23:00 07:00 15:00 23:00 Output Total 250 ml 600 ml Balance -250 ml -600 ml Output Urine Total 250 ml 600 ml # Voids 1 Result Diagram: 03/08/18 0719 03/09/18 0955 Objective Remarks GENERAL: Patient lying in bed. Appears comfortable. Sitting up in chair. SKIN: Warm and dry. HEAD: Normocephalic. EYES: No scleral icterus. No injection or drainage. NECK: Supple, trachea midline. No JVD . CARDIOVASCULAR: Regular rate and rhythm without murmurs, gallops, or rubs. RESPIRATORY: Breath sounds equal bilaterally. No accessory muscle use. GASTROINTESTINAL: Abdomen soft, non-tender, nondistended. MUSCULOSKELETAL: No cyanosis. Patient does have 1+ peripheral edema bilateral extrema, again unchanged from yesterday. BACK: Nontender without obvious deformity. No CVA tenderness. A/P Assessment and Plan //Postoperative day 4- L4-5, L5-S1 laminectomy, interbody arthrodhesis using PEEK cage and autologous bone graft, L4-5, L5-S1 segmental instrumental fixation using transpedicular screws and rods, L4-5, L5-S1 posterolateral fusion using autologous bone graft and rods. Microsurgical dissection. = Postoperative management as per surgical service //Postoperative constipation. Status post laxatives. Tender to await return of bowel function. = Resolved after laxatives. //Diabetes mellitus. Blood sugars continue acceptable. Continue diabetic diet and insulin sliding scale //GERD. Chronic. Patient reporting reflux. Continue PPI. //Coronary artery disease //Hypertension //Hyperlipidemia = Blood pressure initially acceptable, however has been elevated. = Continue home medications. =expect blood pressure to improve with Cardura tonight. It appears he may have missed Cardura last night and could be rebounding. -Coagulation as per surgical service. = Pressures acceptable. Continue to monitor. = 03/09. High blood pressures up to 170s while sleeping. Blood pressures acceptable during the day. Patient should probably be checked out for sleep apnea. //Hypothyroidism. Chronic. Continue home medications //CKD stage IV. 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 -Check tacrolimus level = Creatinine stable 2.05. Continue to monitor. = 03/07. Creatinine up to 2.35. Consult nephrology. Continue on IV fluids. = 03/08. Creatinine up to 2.6. Ultrasound kidneys pending. = 03/09. Creatinine 2.1. Improving. /Chronic steroid use. Continue. No signs of adrenal insufficiency at this time //Bilateral itching. Likely secondary to IV Dilaudid. Improving. Continue to Benadryl as needed. //BPH. Continue finasteride Discharge Planning Medical standpoint, patient is cleared for discharge to rehabilitation. Should have renal function measured at rehab Aguilar Riley MD Mar 09, 2018 14:35
[2018-03-09] MEDS: ACETAMINOPHEN/HYDROcodone 325 MG/10 MG TAB PO PRN ×2 (18:25→22:38)
--- NOTE | 2018-03-09 18:26 | HHI.NPPN ---
Review of Systems General Constitutional: Fatigue Musculoskeletal MS Remarks back pain Objective Data Data 03/09/18 03/10/18 19:00 07:00 Output Total 400 ml Balance -400 ml Output Urine Total 400 ml Vital Signs Date Time Temp Pulse Resp B/P (MAP) Pulse Ox O2 Delivery O2 Flow Rate FiO2 03/09/18 12:00 98.5 62 22 167/72 (103) 95 03/09/18 09:00 Room Air 03/09/18 08:00 66 03/09/18 08:00 99.0 67 19 148/69 (95) 93 03/09/18 05:39 99.7 65 18 172/73 (106) 93 03/09/18 03:45 61 03/09/18 01:00 98.3 75 18 167/72 (103) 97 03/08/18 23:53 76 03/08/18 22:05 91 Room Air 03/08/18 20:00 98.8 67 18 171/72 (105) 91 03/08/18 19:44 68 -: 03/08/18 0719 03/09/18 0955 Physical Exam General Appearance: Well Developed, No Acute Distress Eyes Eye Exam: Pupils Equal Neck Neck Exam: Neck Supple Pulmonary Resp Exam: Clear Bilaterally, Breath Sounds Equal Cardiology CV Exam: Regular, Normal Sinus Rhythm Gastrointestinal/Abdomen GI Exam: Soft Musculoskeletal MS Exam: Joints Intact Extremeties Extremities Exam: No Edema Assessment/Plan Problem List: (1) Kidney transplant status, cadaveric ICD Codes: Z94.0 - Kidney transplant status Status: Acute Plan: He is on Tacrolimus and Prednisone which are being continued. Tacrolimus level is 5. Avoid NSAIDs and other nephrotoxic agents. Monitor urine output and renal function. Renal function is worse. Continue IVF cautiously. change NS at 42 cc/hr, Albumin 25 gm IV q 12 Lasix 20 mg post Albumin X1 (2) Acute on chronic renal insufficiency ICD Codes: N28.9 - Disorder of kidney and ureter, unspecified; N18.9 - Chronic kidney disease, unspecified Status: Acute Plan: He reports that his baseline creatinine is around 1.7, but as mentioned above, his creatinine was around 2.3-2.4 in last October and earlier this year. Continue cautious hydration. Order US of the transplant kidney. (3) Hypertension ICD Codes: I10 - Essential (primary) hypertension Status: Acute Plan: Continue current medications. Monitor. (4) IDDM (insulin dependent diabetes mellitus) ICD Codes: E11.9 - Type 2 diabetes mellitus without complications; Z79.4 - FDC (current) use of insulin Status: Acute Plan: Insulin coverage to maintain blood glucose between 140 and 180. Surekha Yoo MD Mar 09, 2018 18:26
[2018-03-09] MEDS: FUROSEMIDE 20 MG/2 ML VIAL IV PUSH ONE ×2 (19:30→20:53)
[2018-03-09] MEDS ORDERED: SODIUM CHLOR 0.9% 1000 ML INJ 1,000 ML IV SCH (20:00)
[2018-03-09] MEDS: ALBUMIN 25% INJ 100 ML IV SCH ×2 (20:00→20:51)
[2018-03-09] MEDS: DOXAZOSIN MESYLATE 4 MG TAB PO SCH (20:52)
[2018-03-09] MEDS: ATORVASTATIN 40 MG TAB PO SCH (20:52)
[2018-03-09] MEDS: oxyCODONE/ACETAMINOPHEN 5 MG/325 MG TAB PO PRN (20:53)
[2018-03-10] MEDS: ACETAMINOPHEN/HYDROcodone 325 MG/10 MG TAB PO PRN ×3 (02:41→12:36)
[2018-03-10 04:00] VITALS: BP_SYST 186; BP_SYST 201; BP_DIAS 61; BP_DIAS 71; PULSE 60; RESP 20; TEMP 97.3; O2SAT 94
[2018-03-10] MEDS: oxyCODONE/ACETAMINOPHEN 5 MG/325 MG TAB PO PRN ×2 (06:14→13:55)
[2018-03-10] MEDS: LEVOTHYROXINE SODIUM 75 MCG TAB PO SCH (06:14)
[2018-03-10] MEDS: ALBUMIN 25% INJ 100 ML IV SCH ×3 (07:50→09:51)
[2018-03-10] MEDS: FENOFIBRATE 48 MG TAB PO SCH (07:51)
[2018-03-10] MEDS: CHOLECALCIFEROL (VIT D3) 1000 UNIT TAB PO SCH (07:51)
[2018-03-10] MEDS: MULTIVITAMIN TAB PO SCH (07:51)
[2018-03-10] MEDS: PANTOPRAZOLE SOD 40 MG DELAYED RELEASE TAB PO SCH (07:51)
[2018-03-10] MEDS: PROPRANOLOL HCL 40 MG TAB PO SCH (07:51)
[2018-03-10] MEDS: predniSONE 5 MG TAB PO SCH (07:52)
[2018-03-10] MEDS: PRIMIDONE 50 MG TAB PO SCH (07:52)
[2018-03-10] MEDS: hydrALAZINE HCL 100 MG TAB PO SCH ×2 (07:52→12:35)
[2018-03-10] MEDS: GABAPENTIN 100 MG CAP PO SCH ×2 (07:52→12:35)
[2018-03-10] MEDS: FOLIC ACID 1 MG TAB PO SCH (07:53)
[2018-03-10] MEDS: METOPROLOL TARTRATE 100 MG TAB PO SCH (07:53)
[2018-03-10] MEDS: CYANOCOBALAMIN 1,000 MCG TAB PO SCH (07:53)
[2018-03-10] MEDS: MAGNESIUM OXIDE 400 MG TAB PO SCH (07:53)
[2018-03-10] MEDS: TACROLIMUS 1 MG CAP PO SCH (07:54)
[2018-03-10] MEDS: INSULIN DETEMIR 100 UNITS/ML VIAL SQ SCH (07:55)
[2018-03-10] MEDS: INSULIN ASPART SUPPLEMENTAL SCALE SQ SCH ×2 (07:55→12:36)
[2018-03-10 08:00] VITALS: PULSE 57
[2018-03-10 08:19] LABS: AUTOMATED NEUTROPHIL # 4.5 TH/MM3 (1.8-7.7); BASOPHIL % 0.6 % (0.0-2.0); EOSINOPHIL # 0.1 TH/MM3 (0-0.4); EOSINOPHIL % 2.1 % (0.0-4.0); HEMATOCRIT 25.2 % (39.0-51.0); HEMOGLOBIN 8.7 GM/DL (13.0-17.0); LYMPH % 10.8 % (9.0-44.0); LYMPHOCYTE # 0.7 TH/MM3 (1.0-4.8); MEAN CELL VOLUME 90.8 FL (80.0-100.0); MEAN CORPUSCULAR HEMOGLOBIN 31.3 PG (27.0-34.0); MEAN CORPUSCULAR HGB CONC 34.5 % (32.0-36.0); MEAN PLATELET VOLUME 9.2 FL (7.0-11.0); MONO % 12.4 % (0.0-8.0); MONOCYTE # 0.8 TH/MM3 (0-0.9); NEUT % 74.1 % (16.0-70.0); PLATELET COUNT 174 TH/MM3 (150-450); RED BLOOD COUNT 2.78 MIL/MM3 (4.50-5.90); RED CELL DISTRIBUTION WIDTH 13.9 % (11.6-17.2); WHITE BLOOD COUNT 6.1 TH/MM3 (4.0-11.0)
[2018-03-10 08:45] LABS: ALBUMIN 2.9 GM/DL (3.4-5.0); BICARBONATE 22.8 MEQ/L (21.0-32.0); CALCIUM 8.6 MG/DL (8.5-10.1); CREATININE 2.02 MG/DL (0.60-1.30); PHOSPHORUS 2.6 MG/DL (2.5-4.9)
[2018-03-10] MEDS ORDERED: cloNIDine HCL 0.1 MG TAB PO PRN (09:00)
[2018-03-10] MEDS ORDERED: FINASTERIDE 5 MG TAB PO SCH (09:00)
[2018-03-10 09:10] VITALS: BP 132/62; PULSE 61; RESP 22; TEMP 97.9; O2SAT 94
[2018-03-10] MEDS: traMADol HCL 50 MG TAB PO PRN ×2 (09:51→15:20)
--- NOTE | 2018-03-10 11:43 | HHI.NPPN ---
Review of Systems General Constitutional: Fatigue Musculoskeletal MS Remarks back pain Objective Data Data Vital Signs Date Time Temp Pulse Resp B/P (MAP) Pulse Ox O2 Delivery O2 Flow Rate FiO2 03/10/18 09:10 97.9 61 22 132/62 (85) 94 03/10/18 08:00 57 03/10/18 08:00 Room Air 03/10/18 04:00 97.3 60 20 201/61 (107) 94 186/71 (109) 03/09/18 20:00 98.8 63 20 163/66 (98) 92 03/09/18 19:00 Room Air 03/09/18 16:00 98.2 71 17 134/70 (91) 98 03/09/18 12:00 98.5 62 22 167/72 (103) 95 -: 03/10/18 0716 03/10/18 0716 Physical Exam General Appearance: Well Developed, No Acute Distress Eyes Eye Exam: Pupils Equal Neck Neck Exam: Neck Supple Pulmonary Resp Exam: Clear Bilaterally, Breath Sounds Equal Cardiology CV Exam: Regular, Normal Sinus Rhythm Gastrointestinal/Abdomen GI Exam: Soft Musculoskeletal MS Exam: Joints Intact Extremeties Extremities Exam: No Edema Assessment/Plan Problem List: (1) Kidney transplant status, cadaveric ICD Codes: Z94.0 - Kidney transplant status Status: Acute Plan: He is on Tacrolimus and Prednisone which are being continued. Tacrolimus level is 4.1,adjust Tacrolimus 5 mg q 12 Avoid NSAIDs and other nephrotoxic agents. Monitor urine output and renal function. Renal function is worse. Continue IVF cautiously. change NS at 42 cc/hr, Albumin 25 gm IV q 12 Lasix 20 mg oral check BMP if cr stable at 2 can be dc to Rehab (2) Acute on chronic renal insufficiency ICD Codes: N28.9 - Disorder of kidney and ureter, unspecified; N18.9 - Chronic kidney disease, unspecified Status: Acute Plan: He reports that his baseline creatinine is around 1.7, but as mentioned above, his creatinine was around 2.3-2.4 in last October and earlier this year. Continue cautious hydration. Order US of the transplant kidney. (3) Hypertension ICD Codes: I10 - Essential (primary) hypertension Status: Acute Plan: Continue current medications. Monitor. 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 Surekha Yoo MD Mar 10, 2018 11:43
[2018-03-10] MEDS ORDERED: FUROSEMIDE 20 MG TAB PO ONE (11:45)
[2018-03-10] MEDS: ENOXAPARIN SODIUM 30 MG/0.3 ML SYRINGE SQ SCH (12:36)
[2018-03-10] MEDS ORDERED: TACROLIMUS 1 MG CAP PO SCH (18:00)
[2018-03-11] MEDS ORDERED: FUROSEMIDE 20 MG TAB PO SCH (09:00)
== END 2018-03-10 15:31 | DRG 460 ==
LOC: HSDI 06:08 → N05B 03-05 01:11
PROVIDERS: ADMIT Neurological Surgery; ATTEND Neurological Surgery
PROC: 0SG30AJ Fusion of Lumbosacral Joint with Interbody Fusion Device, Posterior Approach, Anterior Column, Open Approach (ICD-10-PCS; 2018-03-04)
PROC: 0ST40ZZ Resection of Lumbosacral Disc, Open Approach (ICD-10-PCS; 2018-03-04)
PROC: 07DR3ZZ Extraction of Iliac Bone Marrow, Percutaneous Approach (ICD-10-PCS; 2018-03-04)
PROC: 4A11X4G Monitoring of Peripheral Nervous Electrical Activity, Intraoperative, External Approach (ICD-10-PCS; 2018-03-04)
PROC: 0SG00AJ Fusion of Lumbar Vertebral Joint with Interbody Fusion Device, Posterior Approach, Anterior Column, Open Approach (ICD-10-PCS; principal; 2018-03-04 14:20)
DX: M51.17 Intervertebral disc disorders with radiculopathy, lumbosacral region (principal); N18.4 Chronic kidney disease, stage 4 (severe); I13.0 Hypertensive heart and chronic kidney disease with heart failure and stage 1 through stage 4 chronic kidney disease, or unspecified chronic kidney disease; E11.22 Type 2 diabetes mellitus with diabetic chronic kidney disease; I50.9 Heart failure, unspecified; Z94.0 Kidney transplant status; K21.9 Gastro-esophageal reflux disease without esophagitis; M43.16 Spondylolisthesis, lumbar region; I25.10 Atherosclerotic heart disease of native coronary artery without angina pectoris; E78.5 Hyperlipidemia, unspecified; E03.9 Hypothyroidism, unspecified; Z79.52 Long term (current) use of systemic steroids; N40.0 Benign prostatic hyperplasia without lower urinary tract symptoms; Z85.828 Personal history of other malignant neoplasm of skin; Z86.14 Personal history of Methicillin resistant Staphylococcus aureus infection; Z87.891 Personal history of nicotine dependence; Z80.1 Family history of malignant neoplasm of trachea, bronchus and lung; Z79.4 Long term (current) use of insulin; R11.0 Nausea; K59.00 Constipation, unspecified
CPT/HCPCS: 72100; 76000; 76776; 76937; 80048; 80069; 80197; 81001; 82805; 82948; 83735; 85025; 85610; 85730; 87641; 94150; C1713; C9113; J0131; J0690; J1170; J1200; J1580; J1644; J1650; J1815; J1940; J2250; J2270; J2370; J2405; J2920; J2930; J3010; J3370; J3480; J7030; J7120; J7507; J7512; L0484; P9047